=== PATIENT | female | born 1945 | race Caucasian/White ===

== ENCOUNTER 2017-04-15 16:14 | Inpatient (IN) | payer OTHER ==
--- NOTE | 2017-04-15 16:22 | PDOC ---
History of Present Illness - General History Source: Patient Exam Limitations: No Limitations - History of Present Illness Initial Comments: 04/15/17 16:26 The patient is a 71 year old female with no significant past medical history, who presents to the ED via EMS s/p fall. Patient was intoxicated getting out of the shower, when she slipt and fell. She states she hit the right side of her head but denies losing consciousness. She denies numbness/tingling. She denies nausea, vomiting. She was unable to get up by herself, she needed assistance from EMS workers. She drank 2 glasses of wine earlier in the day. She admits drinking alcohol every day and having withdrawal symptoms such as shaking if she does not drink. She denies back pain, neck pain. <Andry Nuñez - Last Filed: 04/15/17 18:23> - General History Source: Patient, Family, Old Records Exam Limitations: No Limitations <Vanessa Merritt - Last Filed: 04/15/17 18:24> - General Chief Complaint: Injury Stated Complaint: SLIP AND FALL AT HOME GETTING OUT OF SHOWER Time Seen by Provider: 04/15/17 16:21 Past History <Andry Nuñez - Last Filed: 04/15/17 18:23> <Vanessa Merritt - Last Filed: 04/15/17 18:24> - Past Medical History Allergies/Adverse Reactions: Allergies Allergy/AdvReac Type Severity Reaction Status Date / Time Penicillins Allergy Intermediate Verified 04/15/17 16:17 Home Medications: Ambulatory Orders Levothyroxine Sodium [Synthroid] 88 mcg PO DAILY 04/15/17 Metoprolol Succinate [Toprol Xl] 100 mg PO DAILY 04/15/17 Omeprazole Magnesium [Prilosec] 20 mg PO DAILY 04/15/17 Paroxetine HCl [Paxil] 20 mg PO DAILY 04/15/17 Ubidecarenone [Co Q-10] 10 mg PO DAILY 04/15/17 Valsartan 80 mg PO DAILY 04/15/17 Review of Systems - Review of Systems Able to Perform ROS?: Yes Comments:: 04/15/17 16:26 GENERAL/CONSTITUTIONAL: No fever or chills. No weakness. HEAD, EYES, EARS, NOSE AND THROAT: + right sided head pain. No change in vision. No ear pain or discharge. No sore throat. CARDIOVASCULAR: No chest pain or shortness of breath. RESPIRATORY: No cough, wheezing, or hemoptysis. GASTROINTESTINAL: No nausea, vomiting, diarrhea or constipation. GENITOURINARY: No dysuria, frequency, or change in urination. MUSCULOSKELETAL: No joint or muscle swelling or pain. No neck or back pain. SKIN: No rash NEUROLOGIC: No vertigo, loss of consciousness, or change in strength/sensation. ENDOCRINE: No increased thirst. No abnormal weight change. HEMATOLOGIC/LYMPHATIC: No anemia, easy bleeding, or history of blood clots. ALLERGIC/IMMUNOLOGIC: No hives or skin allergy. <Andry Nuñez - Last Filed: 04/15/17 18:23> *Physical Exam - Physical Exam Comments: 04/15/17 16:26 GENERAL: Awake, alert, and fully oriented, in no acute distress. Scoliosis HEAD: No signs of trauma. No contusions on her head appreciated. EYES: PERRLA, EOMI, sclera anicteric, conjunctiva clear ENT: Auricles normal inspection, hearing grossly normal, nares patent, oropharynx clear without exudates. Dry mucosa. NECK: Normal ROM, supple, no lymphadenopathy, JVD, or masses. No cervical spine tenderness. LUNGS: Distant breath sounds. No wheezes, and no crackles HEART: Regular rate and rhythm, normal S1 and S2, no murmurs, rubs or gallops ABDOMEN: Soft, nontender, normoactive bowel sounds. No guarding, no rebound. No masses EXTREMITIES: Normal range of motion, no edema. No clubbing or cyanosis. No cords, erythema, or tenderness. No signs of trauma. NEUROLOGICAL: Cranial nerves II through XII grossly intact. Normal speech, normal gait. GCS is 15. SKIN: Small hyperpigmented area above her right eyebrow and below the bottom lip. <Andry Nuñez - Last Filed: 04/15/17 18:23> ED Treatment Course - LABORATORY CBC & Chemistry Diagram: 04/15/17 16:50 04/15/17 17:20 <Andry Nuñez - Last Filed: 04/15/17 18:23> - LABORATORY CBC & Chemistry Diagram: 04/15/17 16:50 04/15/17 17:20 <Vanessa Merritt - Last Filed: 04/15/17 18:24> Medical Decision Making - Medical Decision Making 04/15/17 18:[address] Wesly Acosta. <Andry Nuñez - Last Filed: 04/15/17 18:23> - Medical Decision Making 04/15/17 17:59 71-year-old female with history of alcohol abuse who presents to the emergency department following a fall and struck her head; there was no LOC. The patient appears intoxicated. Differential diagnosis includes but is not limited to: Traumatic brain injury, contusion, concussion, electrolyte abnormality, dehydration, infection, toxic/metabolic derangement. Plan: 1. CT head and C-spine 2. Chest x-ray 3. EKG 4. Labs 5. Urine analysis 6. Observe and reevaluate Addendum: The labs were reviewed and are noted in the EMR. I have spoken with the patient's family extensively regarding detoxification from alcohol. As it turns out, her sodium is 118 which warrants admission. Her alcohol level is 226 but she shows no signs of alcohol withdrawal as she is normotensive, not tachycardic and has no tongue fasciculations or tremors. The plan is to admit her to a telemetry/monitored setting for monitoring of electrolytes, and alcohol withdrawal. <Vanessa Merritt - Last Filed: 04/15/17 18:24> *DC/Admit/Observation/Transfer - Attestations Scribe Attestion: 04/15/17 16:28 Documentation prepared by Andry Nuñez, acting as medical technologist microbiology for Vanessa Merritt MD, . <Andry Nuñez - Last Filed: 04/15/17 18:23> - Discharge Dispostion Admit: Yes - Attestations Physician Attestion: 04/15/17 18:02 I, Dr. Vanessa Merritt, attest that the scribes documentation that appears above has been prepared under my direction and personally reviewed by me in its entirety. I confirmed that the note above accurately reflects all work, treatment, procedures, and medical decision-making performed by me. <Vanessa Merritt - Last Filed: 04/15/17 18:24> Diagnosis at time of Disposition: Alcohol intoxication, Hyponatremia, Contusion of head, Fall - Discharge Dispostion Condition at time of disposition: Stable
[2017-04-15 16:37] VITALS: BMI 24.0
[2017-04-15 17:09] LABS: BASOPHIL 4.2 % (0-2.0); EOSINOPHIL 0.6 % (0-4.5); MCH 32.5 pg (25.7-33.7); MCHC 34.4 g/dl (32.0-36.0); MEAN CELL VOLUME 94.6 fl (80-96); MEAN PLT VOLUME 8.1 fl (7.5-11.1); NEUTROPHILS 75.9 % (42.8-82.8); PLATELET COUNT 216 K/MM3 (134-434); RDW 13.8 % (11.6-15.6)
[2017-04-15 17:46] LABS: ACTIVATED PTT 29.4 SECONDS (24.0-38.9)
[2017-04-15 17:48] LABS: CPK(DFH) 255 IU/L (26-140)
[2017-04-15 17:50] LABS: ALBUMIN 4.2 g/dl (3.5-5.0); ALK PHOS 44 U/L (32-92); ANION GAP 15 (8-16); BILIRUBIN,TOTAL 1.6 mg/dl (0.2-1.0); CO2 23 mmol/L (22-28); CREATININE 0.5 mg/dl (0.6-1.3); GLUCOSE,RANDOM 96 mg/dl (74-106); MAGNESIUM 1.6 mg/dL (1.8-2.4); PHOSPHOROUS 3.5 mg/dl (2.5-4.6); SGOT/AST 162 U/L (10-42); SGPT/ALT 98 U/L (10-40)
[2017-04-15 17:55] LABS: ALCOHOL 226.9 mg/dl (0-5)
[2017-04-15 17:56] LABS: INR 0.93 (0.82-1.09); PROTHROMBIN TIME (PATIENT) 10.4 SEC (10.2-13.0)
[2017-04-15 18:02] LABS: TROPONIN I (DFP) < 0.03 ng/ml (0.03-0.50)
[2017-04-15 18:29] LABS: CK MB 16.8 ng/ml (0.3-4.0)
[2017-04-15 19:13] LABS: URINE APPEARANCE Clear; URINE BILIRUBIN Negative (NEGATIVE); URINE BLOOD Negative (NEGATIVE); URINE GLUCOSE (UA) Negative (NEGATIVE); URINE KETONE Trace (NEGATIVE); URINE LEUK ESTERASE Trace (NEGATIVE); URINE NITRITE Negative (NEGATIVE); URINE PROTEIN Trace (NEGATIVE); URINE UROBILINOGEN 1.0 E.U/dl (0.2-1.0)
[2017-04-15 19:17] LABS: URINE COLOR YELLOW
[2017-04-15] MEDS ORDERED: FOLIC ACID INJECTION - 1 MG, THIAMINE HCL 100 MG, MULTIVIT INJECTION ADULT 10 ML in SOD... IVPB ONE (20:31)
[2017-04-15] MEDS ORDERED: chlordiazePOXIDE HCL 25 MG CAPSULE ONE (22:22)
[2017-04-15] MEDS: chlordiazePOXIDE HCL 25 MG CAPSULE PO SCH (22:23)
[2017-04-16] MEDS: chlordiazePOXIDE HCL 25 MG CAPSULE PO SCH ×5 (00:02→23:55)
[2017-04-16 08:24] LABS: BASOPHIL 0.9 % (0-2.0); EOSINOPHIL 1.7 % (0-4.5); MCH 32.6 pg (25.7-33.7); MCHC 33.8 g/dl (32.0-36.0); MEAN CELL VOLUME 96.5 fl (80-96); MEAN PLT VOLUME 7.8 fl (7.5-11.1); NEUTROPHILS 73.4 % (42.8-82.8); PLATELET COUNT 191 K/MM3 (134-434); RDW 13.5 % (11.6-15.6); WHITE BLOOD COUNT 5.8 K/mm3 (4.0-10.8)
[2017-04-16 08:33] LABS: ALBUMIN 4.2 g/dl (3.5-5.0); ALK PHOS 41 U/L (32-92); ANION GAP 11 (8-16); BILIRUBIN,TOTAL 2.2 mg/dl (0.2-1.0); CALCIUM 9.4 mg/dl (8.4-10.2); CO2 26 mmol/L (22-28); CREATININE 0.6 mg/dl (0.6-1.3); GLUCOSE,RANDOM 86 mg/dl (74-106); MAGNESIUM 1.6 mg/dL (1.8-2.4); SGOT/AST 106 U/L (10-42); SGPT/ALT 85 U/L (10-40); TOT PROT 7.2 g/dl (6.4-8.3)
--- NOTE | 2017-04-16 08:36 | HP ---
Admitting History and Physical - Primary Care Physician PCP: Wesly Acosta - Admission History of Present Illness: The patient is a 71 year old female with past medical historyas below , who presents to the ED via EMS s/p fall. Patient was intoxicated getting out of the shower, when she slipt and fell. She states she hit the right side of her head but denies losing consciousness. She denies numbness/tingling. She denies nausea , vomiting. She was unable to get up by herself, she needed assistance from EMS workers. She drank 2 glasses of wine earlier in the day. She admits drinking alcohol every day and having withdrawal symptoms such as shaking if she does not drink. She denies back pain, neck pain. pt found to have alcohol intoxication sodium low pt admitted for monitoring to tele started on alcohol protocol pt well knwn to me from office case was discussed with er physician last night . pt seen/ examined today feels weak denies cp/sob/ abd pain. denies headche/ dizziness denies u/b trouble shaking + History Source: Patient Limitations to Obtaining History: No Limitations - Past Medical History Cardiovascular: Yes: HTN Gastrointestinal: Yes: GERD Psych: Yes: Depression Endocrine: Yes: Other (pheochromocytoma- s/p surgery) - Advance Directives Advance Directives: Yes: Health Care Proxy - Smoking History Smoking history: Former smoker Have you smoked in the past 12 months: No If you are a former smoker, when did you quit?: 1995 - Alcohol/Substance Use Hx Alcohol Use: Yes - Social History Usual Living Arrangement: Yes: With Spouse, With Significant Other History of Recent Travel: No Home Medications - Allergies Allergies/Adverse Reactions: Allergies Allergy/AdvReac Type Severity Reaction Status Date / Time Penicillins Allergy Intermediate Verified 04/15/17 16:17 - Home Medications Home Medications: Ambulatory Orders Levothyroxine Sodium [Synthroid] 88 mcg PO DAILY 04/15/17 Metoprolol Succinate [Toprol Xl] 100 mg PO DAILY 04/15/17 Omeprazole Magnesium [Prilosec] 20 mg PO DAILY 04/15/17 Paroxetine HCl [Paxil] 20 mg PO DAILY 04/15/17 Ubidecarenone [Co Q-10] 10 mg PO DAILY 04/15/17 Valsartan 80 mg PO DAILY 04/15/17 Family Disease History - Family Disease History Family History: Unremarkable Review of Systems Findings/Remarks: see [place] Physical Examination Vital Signs: Vital Signs Temperature 98.6 F 04/16/17 04:00 Pulse Rate 75 04/16/17 04:00 Respiratory Rate 18 04/16/17 04:00 Blood Pressure 164/78 04/16/17 04:00 O2 Sat by Pulse Oximetry (%) 93 L 04/16/17 07:55 Constitutional: Yes: No Distress, Calm Eyes: Yes: Conjunctiva Clear Neck: Yes: Supple, Trachea Midline Cardiovascular: Yes: Regular Rate and Rhythm Respiratory: Yes: CTA Bilaterally Gastrointestinal: Yes: Normal Bowel Sounds, Soft Edema: No Neurological: Yes: Alert, Cran Nerves II-XII Intact, Tremors, Other Psychiatric: Yes: Alert Imaging - Results Chest X-ray: Report Reviewed X-ray: Report Reviewed Cat Scan: Report Reviewed EKG: Report Reviewed Problem List - Problems (1) Hyponatremia syndrome Code(s): E87.1 - HYPO-OSMOLALITY AND HYPONATREMIA (2) Alcohol intoxication Code(s): F10.929 - ALCOHOL USE, UNSPECIFIED WITH INTOXICATION, UNSPECIFIED (3) Contusion of head Code(s): S00.93XA - CONTUSION OF UNSPECIFIED PART OF HEAD, INITIAL ENCOUNTER (4) Fall Code(s): W19.XXXA - UNSPECIFIED FALL, INITIAL ENCOUNTER (5) Hyponatremia Code(s): E87.1 - HYPO-OSMOLALITY AND HYPONATREMIA (6) Hypertension Code(s): I10 - ESSENTIAL (PRIMARY) HYPERTENSION (7) Hypothyroid Code(s): E03.9 - HYPOTHYROIDISM, UNSPECIFIED (8) Mood disorder Code(s): F39 - UNSPECIFIED MOOD [AFFECTIVE] DISORDER Assessment/Plan etoh abuse Banana bag detox with librium continue other meds fall precautions alcohol counselling provided again to pt will discuss with family discussed with nursing staff time spend 40 min in examining/ documenting/ coordinating care will monitor closely
[2017-04-16] MEDS ORDERED: MAGNESIUM SULF 50% (8.12 MEQ/2 ML-1 GM VIAL) IVPB ONE (09:00)
[2017-04-16] MEDS ORDERED: FOLIC ACID INJECTION - 1 MG, THIAMINE HCL 100 MG, MULTIVIT INJECTION ADULT 10 ML in SOD... IVPB ONE (09:15)
[2017-04-16] MEDS: ENOXAPARIN NA (PORCINE) 40 MG/0.4 ML DISP.SYRIN SQ SCH (09:39)
[2017-04-16] MEDS: PANTOPRAZOLE 20 MG TABLET (FP) PO SCH (09:40)
[2017-04-16] MEDS: VALSARTAN 80 MG TABLET (UD) PO SCH (09:40)
[2017-04-16] MEDS: FOLIC ACID INJECTION - 1 MG, THIAMINE HCL 100 MG, MULTIVIT INJECTION ADULT 10 ML in SOD... IVPB SCH (09:41)
[2017-04-16] MEDS: METOPROLOL SUCCINATE 100 MG TAB.SR.24H (FP) PO SCH (09:41)
[2017-04-16] MEDS: PARoxetine HCL 20 MG TABLET (FP) PO SCH (09:41)
[2017-04-16] MEDS ORDERED: LEVOTHYROXINE NA 88 MCG TABLET (FP) PO SCH (10:00)
[2017-04-16] MEDS ORDERED: chlordiazePOXIDE HCL 25 MG CAPSULE PO PRN (14:45)
--- NOTE | 2017-04-16 17:09 | EKG ---
Test Reason : Blood Pressure : / mmHG Vent. Rate : 063 BPM Atrial Rate : 063 BPM P-R Int : 184 ms QRS Dur : 082 ms QT Int : 416 ms P-R-T Axes : 076 006 061 degrees QTc Int : 425 ms NORMAL SINUS RHYTHM NORMAL ECG WHEN COMPARED WITH ECG OF 29-MAR-2005 14:05, CRITERIA FOR ANTERIOR INFARCT ARE NO LONGER PRESENT CRITERIA FOR INFERIOR INFARCT ARE NO LONGER PRESENT ST NO LONGER ELEVATED IN ANTEROLATERAL LEADS CORELATE CLINICALLY Confirmed by LEAH SILVA MD ([id number]) on 04/16/2017 5:09:31 PM Referred By: PATRICIA Confirmed By:LEAH SILVA MD
[2017-04-17] MEDS: chlordiazePOXIDE HCL 25 MG CAPSULE PO SCH ×4 (05:51→23:24)
[2017-04-17 09:08] LABS: ALBUMIN 3.4 g/dl (3.5-5.0); ALK PHOS 33 U/L (32-92); ANION GAP 6 (8-16); BILIRUBIN,TOTAL 1.3 mg/dl (0.2-1.0); CALCIUM 8.6 mg/dl (8.4-10.2); CO2 25 mmol/L (22-28); CREATININE 0.5 mg/dl (0.6-1.3); GLUCOSE,RANDOM 88 mg/dl (74-106); SGOT/AST 49 U/L (10-42); SGPT/ALT 53 U/L (10-40); TOT PROT 5.9 g/dl (6.4-8.3)
--- NOTE | 2017-04-17 09:14 | PN ---
Progress Note (short form) - Note Progress Note: patient seen and examined today Feels better Decreased shaking Eating better Still feels weak though. Vital Signs Temp 98.3 F 04/17/17 06:28 Pulse 73 04/17/17 06:28 Resp 17 04/17/17 06:28 BP 135/87 04/17/17 06:28 Pulse Ox 96 04/17/17 08:32 Intake & Output 04/16/17 04/16/17 04/17/17 11:59 23:59 11:59 Intake Total 1570 1000 999 Balance 1570 1000 999 Intake: IV 1000 504 IVF 1000 504 Oral 570 1000 495 Other: Voiding Method Toilet Toilet Toilet # Unmeasured Voids Void 2 1 Bowel Movement Yes # Bowel Movements 2 Active Medications Chlordiazepoxide HCl (Librium -) 25 mg PO Q6H PRN Last Admin: 04/16/17 15:00 Dose: 25 mg Chlordiazepoxide HCl (Librium -) 25 mg PO Q6H [facility] Stop: 04/18/17 00:01 Chlordiazepoxide HCl (Librium -) 10 mg PO Q6H [facility] Stop: 04/19/17 00:01 Chlordiazepoxide HCl (Librium -) 10 mg PO BID@0600,1800 [facility] Stop: 04/19/17 18:01 Enoxaparin Sodium (Lovenox -) 40 mg SQ DAILY [facility] Last Admin: 04/16/17 09:39 Dose: 40 mg Folic Acid 1 mg/ Thiamine HCl 100 mg/ Multivitamins/Minerals 10 ml/ Sodium Chloride 1,000 mls @ 41.667 mls/hr IVPB DAILY [facility] Stop: 04/19/17 09:59 Last Admin: 04/16/17 09:41 Dose: 41.667 mls/hr Levothyroxine Sodium (Synthroid -) 88 mcg PO DAILY [facility] Last Admin: 04/16/17 09:41 Dose: 88 mcg Metoprolol Succinate (Toprol Xl -) 100 mg PO DAILY [facility] Last Admin: 04/16/17 09:41 Dose: 100 mg Pantoprazole Sodium (Protonix -) 20 mg PO DAILY [facility] Last Admin: 04/16/17 09:40 Dose: 20 mg Paroxetine HCl (Paxil -) 20 mg PO DAILY [facility] Last Admin: 04/16/17 09:41 Dose: 20 mg Valsartan (Diovan -) 80 mg PO DAILY [facility] Last Admin: 04/16/17 09:40 Dose: 80 mg CBC,CMP WBC 5.8 K/mm3 (4.0-10.8) 04/16/17 07:23 RBC 4.53 M/mm3 (3.60-5.2) 04/16/17 07:23 Hgb 14.8 GM/dl (10.7-15.3) 04/16/17 07:23 Hct 43.8 % (32.4-45.2) 04/16/17 07:23 MCV 96.5 fl (80-96) H 04/16/17 07:23 MCH 32.6 pg (25.7-33.7) 04/16/17 07:23 MCHC 33.8 g/dl (32.0-36.0) 04/16/17 07:23 RDW 13.5 % (11.6-15.6) 04/16/17 07:23 Plt Count 191 K/MM3 (134-434) 04/16/17 07:23 MPV 7.8 fl (7.5-11.1) 04/16/17 07:23 Neutrophils % 73.4 % (42.8-82.8) 04/16/17 07:23 Lymphocytes % 14.4 % (8-40) D 04/16/17 07:23 Monocytes % 9.6 % (3.8-10.2) 04/16/17 07:23 Eosinophils % 1.7 % (0-4.5) D 04/16/17 07:23 Basophils % 0.9 % (0-2.0) 04/16/17 07:23 Sodium 125 mmol/L (136-145) L 04/16/17 07:23 Potassium 4.2 mmol/L (3.5-5.1) 04/16/17 07:23 Chloride 88 mmol/L (98-107) L 04/16/17 07:23 Carbon Dioxide 26 mmol/L (22-28) 04/16/17 07:23 Anion Gap 11 (8-16) 04/16/17 07:23 BUN 7 mg/dl (7-18) 04/16/17 07:23 Creatinine 0.6 mg/dl (0.6-1.3) 04/16/17 07:23 Creat Clearance w eGFR > 60 (>60) 04/16/17 07:23 Random Glucose 86 mg/dl (74-106) 04/16/17 07:23 Calcium 9.4 mg/dl (8.4-10.2) 04/16/17 07:23 Phosphorus 3.5 mg/dl (2.5-4.6) 04/15/17 17:20 Magnesium 1.6 mg/dL (1.8-2.4) L 04/16/17 07:23 Total Bilirubin 2.2 mg/dl (0.2-1.0) H D 04/16/17 07:23 AST 106 U/L (10-42) H D 04/16/17 07:23 ALT 85 U/L (10-40) H 04/16/17 07:23 Alkaline Phosphatase 41 U/L (32-92) 04/16/17 07:23 Creatine Kinase 255 IU/L (26-140) H 04/15/17 17:20 CK-MB (CK-2) 16.8 ng/ml (0.3-4.0) H 04/15/17 17:20 Troponin I < 0.03 ng/ml (0.03-0.50) L 04/15/17 17:20 Total Protein 7.2 g/dl (6.4-8.3) 04/16/17 07:23 Albumin 4.2 g/dl (3.5-5.0) 04/16/17 07:23 Lipase 75 U/L (22-51) H 04/15/17 17:20 today's labs --pending Physical Examination Constitutional: Yes: No Distress, Calm Eyes: Yes: Conjunctiva Clear Neck: Yes: Supple, Trachea Midline, no JVD Cardiovascular: Yes: Regular Rate and Rhythm Respiratory: Yes: CTA Bilaterally Gastrointestinal: Yes: Normal Bowel Sounds, Soft, nontender Edema: No Neurological: Yes: Alert, Cran Nerves II-XII Intact, decreased tremors Psychiatric: Yes: Alert/awake Imaging - Results Chest X-ray: Report Reviewed X-ray: Report Reviewed Cat Scan: Report Reviewed EKG: Report Reviewed Assessment/Plan etoh abuse clinically better Banana bag detox with librium--tapering doses--- order clarified and discussed with nursing staff continue other meds fall precautions alcohol counselling provided again to pt Will follow Problem List - Problems (1) Hyponatremia syndrome Code(s): E87.1 - HYPO-OSMOLALITY AND HYPONATREMIA (2) Alcohol intoxication Code(s): F10.929 - ALCOHOL USE, UNSPECIFIED WITH INTOXICATION, UNSPECIFIED (3) Contusion of head Code(s): S00.93XA - CONTUSION OF UNSPECIFIED PART OF HEAD, INITIAL ENCOUNTER (4) Fall Code(s): W19.XXXA - UNSPECIFIED FALL, INITIAL ENCOUNTER (5) Hyponatremia Code(s): E87.1 - HYPO-OSMOLALITY AND HYPONATREMIA (6) Hypertension Code(s): I10 - ESSENTIAL (PRIMARY) HYPERTENSION (7) Hypothyroid Code(s): E03.9 - HYPOTHYROIDISM, UNSPECIFIED (8) Mood disorder Code(s): F39 - UNSPECIFIED MOOD [AFFECTIVE] DISORDER
[2017-04-17 09:28] LABS: BASOPHIL 0.8 % (0-2.0); MCH 33.2 pg (25.7-33.7); MCHC 34.9 g/dl (32.0-36.0); MEAN CELL VOLUME 94.9 fl (80-96); MEAN PLT VOLUME 7.8 fl (7.5-11.1); NEUTROPHILS 61.8 % (42.8-82.8); PLATELET COUNT 132 K/MM3 (134-434); RDW 13.2 % (11.6-15.6); WHITE BLOOD COUNT 3.9 K/mm3 (4.0-10.8)
[2017-04-17] MEDS: ENOXAPARIN NA (PORCINE) 40 MG/0.4 ML DISP.SYRIN SQ SCH (09:41)
[2017-04-17] MEDS: PANTOPRAZOLE 20 MG TABLET (FP) PO SCH (09:41)
[2017-04-17] MEDS: LEVOTHYROXINE NA 88 MCG TABLET (FP) PO SCH (09:41)
[2017-04-17] MEDS: FOLIC ACID INJECTION - 1 MG, THIAMINE HCL 100 MG, MULTIVIT INJECTION ADULT 10 ML in SOD... IVPB SCH (09:41)
[2017-04-17] MEDS: PARoxetine HCL 20 MG TABLET (FP) PO SCH (09:42)
[2017-04-17] MEDS: VALSARTAN 80 MG TABLET (UD) PO SCH (09:42)
[2017-04-17] MEDS: METOPROLOL SUCCINATE 100 MG TAB.SR.24H (FP) PO SCH (09:42)
[2017-04-17] MEDS ORDERED: MAGNESIUM SULF 50% (8.12 MEQ/2 ML-1 GM VIAL) IVPB ONE (10:40)
[2017-04-17] MEDS: POTASSIUM CHLORIDE TABS 10 MEQ TABLET.ER (FP) PO SCH (11:27)
[2017-04-18] MEDS: LEVOTHYROXINE NA 88 MCG TABLET (FP) PO SCH (06:09)
[2017-04-18] MEDS: chlordiazePOXIDE 5 MG CAPSULE PO SCH ×4 (06:10→23:53)
[2017-04-18 09:38] LABS: ALBUMIN 3.9 g/dl (3.5-5.0); ALK PHOS 34 U/L (32-92); ANION GAP 6 (8-16); BILIRUBIN,TOTAL 1.4 mg/dl (0.2-1.0); CALCIUM 8.9 mg/dl (8.4-10.2); CO2 26 mmol/L (22-28); CREATININE 0.5 mg/dl (0.6-1.3); GLUCOSE,RANDOM 142 mg/dl (74-106); MAGNESIUM 1.6 mg/dL (1.8-2.4); SGOT/AST 40 U/L (10-42); SGPT/ALT 52 U/L (10-40); TOT PROT 6.7 g/dl (6.4-8.3)
[2017-04-18] MEDS: VALSARTAN 80 MG TABLET (UD) PO SCH (09:53)
[2017-04-18] MEDS: METOPROLOL SUCCINATE 100 MG TAB.SR.24H (FP) PO SCH (09:53)
[2017-04-18] MEDS: PARoxetine HCL 20 MG TABLET (FP) PO SCH (09:53)
[2017-04-18] MEDS: POTASSIUM CHLORIDE TABS 10 MEQ TABLET.ER (FP) PO SCH (09:53)
[2017-04-18] MEDS: PANTOPRAZOLE 20 MG TABLET (FP) PO SCH (09:53)
[2017-04-18] MEDS: FOLIC ACID INJECTION - 1 MG, THIAMINE HCL 100 MG, MULTIVIT INJECTION ADULT 10 ML in SOD... IVPB SCH (10:22)
[2017-04-18] MEDS: ENOXAPARIN NA (PORCINE) 40 MG/0.4 ML DISP.SYRIN SQ SCH (10:22)
[2017-04-18] MEDS: MAGNESIUM OXIDE 400 MG TABLET (FP) PO SCH ×2 (11:38→21:50)
--- NOTE | 2017-04-18 17:11 | PN ---
Progress Note (short form) - Note Progress Note: patient seen and examined today Feels better Decreased shaking Eating better but still feels weak. no distress Vital Signs Temp 98.0 F 04/18/17 14:00 Pulse 66 04/18/17 14:00 Resp 18 04/18/17 14:00 BP 125/72 04/18/17 14:00 Pulse Ox 96 04/18/17 14:33 Intake & Output 04/17/17 04/18/17 04/18/17 23:59 11:59 23:59 Intake Total 1184 Output Total 200 Balance 1184 -200 Intake: IV 504 IVF 504 Oral 680 Output: Urine 200 Void 200 Other: Voiding Method Toilet Toilet # Unmeasured Voids Void 3 Bowel Movement SM Active Medications Chlordiazepoxide HCl (Librium -) 25 mg PO Q6H PRN Last Admin: 04/16/17 15:00 Dose: 25 mg Chlordiazepoxide HCl (Librium -) 10 mg PO Q6H [facility] Stop: 04/19/17 00:01 Last Admin: 04/18/17 11:38 Dose: 10 mg Chlordiazepoxide HCl (Librium -) 10 mg PO BID@0600,1800 [facility] Stop: 04/19/17 18:01 Enoxaparin Sodium (Lovenox -) 40 mg SQ DAILY [facility] Last Admin: 04/18/17 10:22 Dose: 40 mg Folic Acid 1 mg/ Thiamine HCl 100 mg/ Multivitamins/Minerals 10 ml/ Sodium Chloride 1,000 mls @ 41.667 mls/hr IVPB DAILY [facility] Stop: 04/19/17 09:59 Last Admin: 04/18/17 10:22 Dose: 41.667 mls/hr Levothyroxine Sodium (Synthroid -) 88 mcg PO DAILY@0700 [facility] Last Admin: 04/18/17 06:09 Dose: 88 mcg Magnesium Oxide (Mag-Ox -) 400 mg PO BID [facility] Last Admin: 04/18/17 11:38 Dose: 400 mg Metoprolol Succinate (Toprol Xl -) 100 mg PO DAILY [facility] Last Admin: 04/18/17 09:53 Dose: 100 mg Pantoprazole Sodium (Protonix -) 20 mg PO DAILY [facility] Last Admin: 04/18/17 09:53 Dose: 20 mg Paroxetine HCl (Paxil -) 20 mg PO DAILY [facility] Last Admin: 04/18/17 09:53 Dose: 20 mg Potassium Chloride (K-Dur -) 20 meq PO DAILY [facility] Last Admin: 04/18/17 09:53 Dose: 20 meq Valsartan (Diovan -) 80 mg PO DAILY [facility] Last Admin: 04/18/17 09:53 Dose: 80 mg CBC,CMP WBC 3.9 K/mm3 (4.0-10.8) L D 04/17/17 07:32 RBC 3.80 M/mm3 (3.60-5.2) 04/17/17 07:32 Hgb 12.6 GM/dl (10.7-15.3) D 04/17/17 07:32 Hct 36.1 % (32.4-45.2) D 04/17/17 07:32 MCV 94.9 fl (80-96) 04/17/17 07:32 MCH 33.2 pg (25.7-33.7) 04/17/17 07:32 MCHC 34.9 g/dl (32.0-36.0) 04/17/17 07:32 RDW 13.2 % (11.6-15.6) 04/17/17 07:32 Plt Count 132 K/MM3 (134-434) L D 04/17/17 07:32 MPV 7.8 fl (7.5-11.1) 04/17/17 07:32 Neutrophils % 61.8 % (42.8-82.8) 04/17/17 07:32 Lymphocytes % 20.2 % (8-40) D 04/17/17 07:32 Monocytes % 13.2 % (3.8-10.2) H 04/17/17 07:32 Eosinophils % 4.0 % (0-4.5) D 04/17/17 07:32 Basophils % 0.8 % (0-2.0) 04/17/17 07:32 Sodium 125 mmol/L (136-145) L 04/18/17 08:28 Potassium 3.6 mmol/L (3.5-5.1) 04/18/17 08:28 Chloride 93 mmol/L (98-107) L 04/18/17 08:28 Carbon Dioxide 26 mmol/L (22-28) 04/18/17 08:28 Anion Gap 6 (8-16) L 04/18/17 08:28 BUN < 5 mg/dl (7-18) L D 04/18/17 08:28 Creatinine 0.5 mg/dl (0.6-1.3) L 04/18/17 08:28 Creat Clearance w eGFR > 60 (>60) 04/18/17 08:28 Random Glucose 142 mg/dl (74-106) H D 04/18/17 08:28 Calcium 8.9 mg/dl (8.4-10.2) 04/18/17 08:28 Phosphorus 3.5 mg/dl (2.5-4.6) 04/15/17 17:20 Magnesium 1.6 mg/dL (1.8-2.4) L 04/18/17 08:28 Total Bilirubin 1.4 mg/dl (0.2-1.0) H 04/18/17 08:28 AST 40 U/L (10-42) 04/18/17 08:28 ALT 52 U/L (10-40) H 04/18/17 08:28 Alkaline Phosphatase 34 U/L (32-92) 04/18/17 08:28 Creatine Kinase 255 IU/L (26-140) H 04/15/17 17:20 CK-MB (CK-2) 16.8 ng/ml (0.3-4.0) H 04/15/17 17:20 Troponin I < 0.03 ng/ml (0.03-0.50) L 04/15/17 17:20 Total Protein 6.7 g/dl (6.4-8.3) 04/18/17 08:28 Albumin 3.9 g/dl (3.5-5.0) 04/18/17 08:28 Lipase 75 U/L (22-51) H 04/15/17 17:20 Physical Examination Constitutional: Yes: No Distress, Calm Eyes: Yes: Conjunctiva Clear Neck: Yes: Supple, Trachea Midline, no JVD Cardiovascular: Yes: Regular Rate and Rhythm Respiratory: Yes: CTA Bilaterally Gastrointestinal: Yes: Normal Bowel Sounds, Soft, nontender Edema: No Neurological: Yes: Alert, Cran Nerves II-XII Intact, decreased tremors Psychiatric: Yes: Alert/awake Assessment/Plan etoh abuse clinically better Banana bag detox with librium--tapering doses--- continue other meds fall precautions alcohol counselling provided again to pt. pt not willing to go for inpatient rehab Will follow anticipate d/c in 1-2 days supplement magnesium Problem List - Problems (1) Hyponatremia syndrome Code(s): E87.1 - HYPO-OSMOLALITY AND HYPONATREMIA (2) Alcohol intoxication Code(s): F10.929 - ALCOHOL USE, UNSPECIFIED WITH INTOXICATION, UNSPECIFIED (3) Contusion of head Code(s): S00.93XA - CONTUSION OF UNSPECIFIED PART OF HEAD, INITIAL ENCOUNTER (4) Fall Code(s): W19.XXXA - UNSPECIFIED FALL, INITIAL ENCOUNTER (5) Hyponatremia Code(s): E87.1 - HYPO-OSMOLALITY AND HYPONATREMIA (6) Hypertension Code(s): I10 - ESSENTIAL (PRIMARY) HYPERTENSION (7) Hypothyroid Code(s): E03.9 - HYPOTHYROIDISM, UNSPECIFIED (8) Mood disorder Code(s): F39 - UNSPECIFIED MOOD [AFFECTIVE] DISORDER
[2017-04-19] MEDS: chlordiazePOXIDE 5 MG CAPSULE PO SCH ×2 (06:20→18:30)
[2017-04-19] MEDS: LEVOTHYROXINE NA 88 MCG TABLET (FP) PO SCH (06:21)
[2017-04-19] MEDS ORDERED: FOLIC ACID INJECTION - 1 MG, THIAMINE HCL 100 MG, MULTIVIT INJECTION ADULT 10 ML in SOD... IVPB SCH (10:00)
[2017-04-19 10:01] LABS: BASOPHIL 4.7 % (0-2.0); EOSINOPHIL 3.2 % (0-4.5); MCH 33.8 pg (25.7-33.7); MCHC 34.7 g/dl (32.0-36.0); MEAN CELL VOLUME 97.3 fl (80-96); MEAN PLT VOLUME 7.9 fl (7.5-11.1); NEUTROPHILS 62.1 % (42.8-82.8); PLATELET COUNT 127 K/MM3 (134-434); RDW 13.3 % (11.6-15.6); WHITE BLOOD COUNT 5.1 K/mm3 (4.0-10.8)
[2017-04-19] MEDS: PARoxetine HCL 20 MG TABLET (FP) PO SCH (10:01)
[2017-04-19] MEDS: PANTOPRAZOLE 20 MG TABLET (FP) PO SCH (10:01)
[2017-04-19] MEDS: VALSARTAN 80 MG TABLET (UD) PO SCH (10:01)
[2017-04-19] MEDS: MAGNESIUM OXIDE 400 MG TABLET (FP) PO SCH ×2 (10:01→21:50)
[2017-04-19] MEDS: POTASSIUM CHLORIDE TABS 10 MEQ TABLET.ER (FP) PO SCH (10:02)
[2017-04-19] MEDS: METOPROLOL SUCCINATE 100 MG TAB.SR.24H (FP) PO SCH (10:02)
[2017-04-19] MEDS: ENOXAPARIN NA (PORCINE) 40 MG/0.4 ML DISP.SYRIN SQ SCH (10:02)
[2017-04-19 10:03] LABS: ALBUMIN 3.4 g/dl (3.5-5.0); ALK PHOS 32 U/L (32-92); ANION GAP 5 (8-16); BILIRUBIN,TOTAL 0.5 mg/dl (0.2-1.0); CALCIUM 8.6 mg/dl (8.4-10.2); CO2 26 mmol/L (22-28); CREATININE 0.7 mg/dl (0.6-1.3); GLUCOSE,RANDOM 134 mg/dl (74-106); MAGNESIUM 1.5 mg/dL (1.8-2.4); SGOT/AST 31 U/L (10-42); SGPT/ALT 39 U/L (10-40)
[2017-04-19] MEDS: chlordiazePOXIDE HCL 25 MG CAPSULE PO PRN (10:10)
--- NOTE | 2017-04-19 10:13 | PN ---
Progress Note (short form) - Note Progress Note: patient seen and examined today Feels still weak mild shaking + eating ok denies pain. Vital Signs Temp 97.9 F 04/19/17 05:51 Pulse 64 04/19/17 05:51 Resp 19 04/19/17 05:51 BP 137/79 04/19/17 05:51 Pulse Ox 95 04/19/17 08:22 Intake & Output 04/18/17 04/18/17 04/19/17 11:59 23:59 11:59 Intake Total 500 450 Output Total 200 Balance -200 500 450 Intake: Oral 500 450 Output: Urine 200 Void 200 Other: Voiding Method Toilet Toilet Toilet # Unmeasured Voids Void 2 1 Bowel Movement SM No Active Medications Chlordiazepoxide HCl (Librium -) 25 mg PO Q6H PRN Last Admin: 04/16/17 15:00 Dose: 25 mg Chlordiazepoxide HCl (Librium -) 10 mg PO Q6H [facility] Stop: 04/19/17 00:01 Last Admin: 04/18/17 11:38 Dose: 10 mg Chlordiazepoxide HCl (Librium -) 10 mg PO BID@0600,1800 [facility] Stop: 04/19/17 18:01 Enoxaparin Sodium (Lovenox -) 40 mg SQ DAILY [facility] Last Admin: 04/18/17 10:22 Dose: 40 mg Folic Acid 1 mg/ Thiamine HCl 100 mg/ Multivitamins/Minerals 10 ml/ Sodium Chloride 1,000 mls @ 41.667 mls/hr IVPB DAILY [facility] Stop: 04/19/17 09:59 Last Admin: 04/18/17 10:22 Dose: 41.667 mls/hr Levothyroxine Sodium (Synthroid -) 88 mcg PO DAILY@0700 [facility] Last Admin: 04/18/17 06:09 Dose: 88 mcg Magnesium Oxide (Mag-Ox -) 400 mg PO BID [facility] Last Admin: 04/18/17 11:38 Dose: 400 mg Metoprolol Succinate (Toprol Xl -) 100 mg PO DAILY [facility] Last Admin: 04/18/17 09:53 Dose: 100 mg Pantoprazole Sodium (Protonix -) 20 mg PO DAILY [facility] Last Admin: 04/18/17 09:53 Dose: 20 mg Paroxetine HCl (Paxil -) 20 mg PO DAILY [facility] Last Admin: 04/18/17 09:53 Dose: 20 mg Potassium Chloride (K-Dur -) 20 meq PO DAILY [facility] Last Admin: 04/18/17 09:53 Dose: 20 meq Valsartan (Diovan -) 80 mg PO DAILY [facility] Last Admin: 04/18/17 09:53 Dose: 80 mg Todays- Labs - Pending. Physical Examination Constitutional: Yes: awake/ comfortable Eyes: Yes: Conjunctiva Clear Neck: Yes: Supple, Trachea Midline, no JVD Cardiovascular: Yes: Regular Rate and Rhythm Respiratory: Yes: CTA Bilaterally Gastrointestinal: Yes: Normal Bowel Sounds, Soft, non tender Edema: No Neurological: Yes: Alert, Psychiatric: Yes: Alert/awake Assessment/Plan etoh abuse clinically better Banana bag detox with librium--tapering doses--- continue other meds fall precautions alcohol counselling provided again to pt. pt not willing to go for inpatient rehab check labs today still weak will not discharge today Anticipate tomorrow. Discussed in detail with Pts daughter Olivia also today .Discussed with nursing staff also. will follow Problem List - Problems (1) Hyponatremia syndrome Code(s): E87.1 - HYPO-OSMOLALITY AND HYPONATREMIA (2) Alcohol intoxication Code(s): F10.929 - ALCOHOL USE, UNSPECIFIED WITH INTOXICATION, UNSPECIFIED (3) Contusion of head Code(s): S00.93XA - CONTUSION OF UNSPECIFIED PART OF HEAD, INITIAL ENCOUNTER (4) Fall Code(s): W19.XXXA - UNSPECIFIED FALL, INITIAL ENCOUNTER (5) Hyponatremia Code(s): E87.1 - HYPO-OSMOLALITY AND HYPONATREMIA (6) Hypertension Code(s): I10 - ESSENTIAL (PRIMARY) HYPERTENSION (7) Hypothyroid Code(s): E03.9 - HYPOTHYROIDISM, UNSPECIFIED (8) Mood disorder Code(s): F39 - UNSPECIFIED MOOD [AFFECTIVE] DISORDER
[2017-04-20] MEDS: chlordiazePOXIDE HCL 25 MG CAPSULE PO PRN (01:27)
[2017-04-20] MEDS: LEVOTHYROXINE NA 88 MCG TABLET (FP) PO SCH (06:57)
[2017-04-20] MEDS: VALSARTAN 80 MG TABLET (UD) PO SCH (09:58)
[2017-04-20] MEDS: PANTOPRAZOLE 20 MG TABLET (FP) PO SCH (09:58)
[2017-04-20] MEDS: POTASSIUM CHLORIDE TABS 10 MEQ TABLET.ER (FP) PO SCH (09:58)
[2017-04-20] MEDS: ENOXAPARIN NA (PORCINE) 40 MG/0.4 ML DISP.SYRIN SQ SCH (09:58)
[2017-04-20] MEDS: METOPROLOL SUCCINATE 100 MG TAB.SR.24H (FP) PO SCH (09:59)
[2017-04-20] MEDS: MAGNESIUM OXIDE 400 MG TABLET (FP) PO SCH (09:59)
[2017-04-20] MEDS: PARoxetine HCL 20 MG TABLET (FP) PO SCH (09:59)
[2017-04-20 11:10] LABS: MCH 33.1 pg (25.7-33.7); MCHC 33.8 g/dl (32.0-36.0); MEAN CELL VOLUME 97.9 fl (80-96); MEAN PLT VOLUME 7.2 fl (7.5-11.1); PLATELET COUNT 150 K/MM3 (134-434); RDW 13.7 % (11.6-15.6); WHITE BLOOD COUNT 4.8 K/mm3 (4.0-10.8)
[2017-04-20 11:30] LABS: ALBUMIN 3.3 g/dl (3.5-5.0); ALK PHOS 29 U/L (32-92); ANION GAP 5 (8-16); BILIRUBIN,TOTAL 0.5 mg/dl (0.2-1.0); CALCIUM 9.2 mg/dl (8.4-10.2); CO2 29 mmol/L (22-28); CREATININE 0.6 mg/dl (0.6-1.3); GLUCOSE,RANDOM 90 mg/dl (74-106); MAGNESIUM 1.5 mg/dL (1.8-2.4); SGOT/AST 27 U/L (10-42); SGPT/ALT 33 U/L (10-40); TOT PROT 5.9 g/dl (6.4-8.3)
[2017-04-20 14:04] VITALS: BP 112/70; PULSE 77; TEMP 98.4
--- NOTE | 2017-04-20 15:00 | DS ---
Physical Examination Vital Signs: Vital Signs Temperature 98.4 F 04/20/17 14:03 Pulse Rate 77 04/20/17 14:03 Respiratory Rate 18 04/20/17 14:03 Blood Pressure 112/70 04/20/17 14:03 O2 Sat by Pulse Oximetry (%) 98 04/20/17 14:03 Findings/Remarks: feels better no complains Constitutional: Yes: No Distress, Calm Neck: Yes: Supple Cardiovascular: Yes: Regular Rate and Rhythm Respiratory: Yes: CTA Bilaterally Gastrointestinal: Yes: Normal Bowel Sounds, Soft Edema: No Neurological: Yes: Alert Psychiatric: Yes: Alert Labs: CBC, BMP 04/20/17 11:02 04/20/17 11:02 Discharge Summary Reason For Visit: HYPONATREMIA Current Active Problems Alcohol intoxication (Acute) Contusion of head (Acute) Fall (Acute) Hypertension (Acute) Hyponatremia (Acute) Hyponatremia syndrome (Acute) Hypothyroid (Acute) Mood disorder (Acute) Hospital Course: he patient is a 71 year old female with past medical historyas below , who presents to the ED via EMS s/p fall. Patient was intoxicated getting out of the shower, when she slipt and fell. She states she hit the right side of her head but denies losing consciousness. She denies numbness/tingling. She denies nausea , vomiting. She was unable to get up by herself, she needed assistance from EMS workers. She drank 2 glasses of wine earlier in the day. She admits drinking alcohol every day and having withdrawal symptoms such as shaking if she does not drink. She denies back pain, neck pain. pt found to have alcohol intoxication sodium low pt admitted for monitoring to [facility] started on alcohol protocol Pt better/ stable for d/c pt refuses in patient rehab. Pt strongly counselled also to join aa meetings I also had discussed with pts daughter yesterday. will d/c home today meds reconcilled. Plan discussed with nursing staff also. meds prescribed as needed. Time spend in examining/ documenting and coordating care- 35 min Condition: Stable - Instructions Disposition: HOME - Home Medications Comprehensive Discharge Medication List: Ambulatory Orders Levothyroxine Sodium [Synthroid] 88 mcg PO DAILY 04/15/17 Metoprolol Succinate [Toprol Xl] 100 mg PO DAILY 04/15/17 Omeprazole Magnesium [Prilosec] 20 mg PO DAILY 04/15/17 Paroxetine HCl [Paxil] 20 mg PO DAILY 04/15/17 Ubidecarenone [Co Q-10] 10 mg PO DAILY 04/15/17 Valsartan 80 mg PO DAILY 04/15/17 Folic Acid 0.8 mg PO DAILY #30 tablet 04/20/17 Magnesium Oxide [Mag-Ox -] 400 mg PO BID #60 tablet MDD 2 04/20/17 Thiamine Mononitrate [Vitamin B-1] 100 mg PO DAILY #30 tablet 04/20/17
== END 2017-04-20 17:02 | disposition home or self-care (01) | DRG 897 ==
LOC: FER 16:14 → FM/S 18:55
PROVIDERS: ADMIT Internal Medicine; ATTEND Internal Medicine
PROC: HZ2ZZZZ Detoxification Services for Substance Abuse Treatment (ICD-10-PCS; principal; 2017-04-15)
DX: F10.229 Alcohol dependence with intoxication, unspecified (principal); E87.1 Hypo-osmolality and hyponatremia; F10.239 Alcohol dependence with withdrawal, unspecified; F39 Unspecified mood [affective] disorder; K21.9 Gastro-esophageal reflux disease without esophagitis; Z87.891 Personal history of nicotine dependence; S00.93XA Contusion of unspecified part of head, initial encounter; W19.XXXA Unspecified fall, initial encounter; Y93.9 Activity, unspecified; Y92.098 Other place in other non-institutional residence as the place of occurrence of the external cause; Y99.9 Unspecified external cause status
CPT/HCPCS: 36415; 70450-TC; 71010-TC; 72125-TC; 80053; 80307; 81003; 82550; 82553; 83690; 83735; 84100; 84484; 85025; 85027; 85610; 85730; 93005; 99284-25

== ENCOUNTER 2018-01-07 18:07 | Inpatient (IN) | payer OTHER ==
[2018-01-07 18:14] VITALS: BMI 23.6
[2018-01-07] MEDS ORDERED: SODIUM CHLORIDE 500 ML IV STA (18:17)
[2018-01-07] MEDS ORDERED: chlordiazePOXIDE HCL 25 MG CAPSULE PO ONE (18:18)
--- NOTE | 2018-01-07 18:18 | PDOC ---
History of Present Illness - History of Present Illness Initial Comments: 01/07/18 18:41 Chief complaint: Patient has no complaint herself. Family called 911 because she 's been abusing alcohol and they did not know how to care for her History of present illness: <ChrisBola Yousuf - Last Filed: 01/07/18 18:41> - General History Source: Patient, EMS, Family Exam Limitations: No Limitations - History of Present Illness Initial Comments: 01/07/18 19:05 The patient is a 72 year old female, with past medical history of HTN presents to the emergency department with acute alcohol intoxication today. The patient was brought to the ED via EMS. EMS reports that the family called 911 over complaints of patients alcohol use. The patient states that she has no current complaints. The patient denies any recent falls or trauma. The patient denies chest pain, shortness of breath, headache and dizziness. Denies fever, chills, nausea, vomit, diarrhea and constipation. Denies dysuria, frequency, urgency and hematuria. Allergies: Penicillin <Patrick Browne - Last Filed: 01/07/18 19:06> - General Chief Complaint: Alcohol intoxication Stated Complaint: ALCOHOL INTOXICATION Time Seen by Provider: 01/07/18 18:16 Past History - Past Medical History COPD: No HTN: Yes Thyroid Disease: Yes (HYPOTHYROIDISM) - Suicide/Smoking/Psychosocial Hx Smoking History: Never smoked Have you smoked in the past 12 months: No If you are a former smoker, when did you quit?: 1995 Information on smoking cessation initiated: No Hx Alcohol Use: Yes Drug/Substance Use Hx: No Substance Use Type: Alcohol <Bola Perez - Last Filed: 01/07/18 18:41> <Patrick Browne - Last Filed: 01/07/18 19:06> - Past Medical History Allergies/Adverse Reactions: Allergies Allergy/AdvReac Type Severity Reaction Status Date / Time Penicillins Allergy Intermediate Verified 01/07/18 18:08 Home Medications: Ambulatory Orders Levothyroxine Sodium [Synthroid] 88 mcg PO DAILY 04/15/17 Metoprolol Succinate [Toprol Xl] 100 mg PO DAILY 04/15/17 Omeprazole Magnesium [Prilosec] 20 mg PO DAILY 04/15/17 Paroxetine HCl [Paxil] 20 mg PO DAILY 04/15/17 Ubidecarenone [Co Q-10] 10 mg PO DAILY 04/15/17 Valsartan 80 mg PO DAILY 04/15/17 Folic Acid 0.8 mg PO DAILY #30 tablet 04/20/17 Magnesium Oxide [Mag-Ox -] 400 mg PO BID #60 tablet MDD 2 04/20/17 Thiamine Mononitrate [Vitamin B-1] 100 mg PO DAILY #30 tablet 04/20/17 Review of Systems - Review of Systems Able to Perform ROS?: Yes Comments:: 01/07/18 19:05 CONSTITUTIONAL: Absent: fever, chills, diaphoresis, generalized weakness, malaise, loss of appetite HEENT: Absent: rhinorrhea, nasal congestion, throat pain, throat swelling, difficulty swallowing, mouth swelling, ear pain, eye pain, visual Changes CARDIOVASCULAR: Absent: chest pain, syncope, palpitations, irregular heart rate, lightheadedness , peripheral edema RESPIRATORY: Absent: cough, shortness of breath, dyspnea with exertion, orthopnea, wheezing, stridor, hemoptysis GASTROINTESTINAL: Absent: abdominal pain, abdominal distension, nausea, vomiting, diarrhea, constipation, melena, hematochezia GENITOURINARY: Absent: dysuria, frequency, urgency, hesitancy, hematuria, flank pain, genital pain MUSCULOSKELETAL: Absent: myalgia, arthralgia, joint swelling SKIN: Absent: rash, itching, pallor HEMATOLOGIC/IMMUNOLOGIC: Absent: easy bleeding, easy bruising, lymphadenopathy, frequent infections ENDOCRINE: Absent: unexplained weight gain, unexplained weight loss, heat intolerance, cold intolerance NEUROLOGIC: Absent: headache, focal weakness or paresthesias, dizziness, unsteady gait, seizure, mental status changes, bladder or bowel incontinence PSYCHIATRIC: Absent: anxiety, depression, suicidal or homicidal ideation, hallucinations. <Patrick Browne - Last Filed: 01/07/18 19:06> *Physical Exam - Vital Signs Last Vital Signs Temp Pulse Resp BP Pulse Ox 97.4 F L 73 18 112/77 96 01/07/18 18:10 01/07/18 18:10 01/07/18 18:10 01/07/18 18:10 01/07/18 18:10 <Bola Perez - Last Filed: 01/07/18 18:41> - Vital Signs Last Vital Signs Temp Pulse Resp BP Pulse Ox 97.4 F L 73 18 112/77 96 01/07/18 18:10 01/07/18 18:10 01/07/18 18:10 01/07/18 18:10 01/07/18 18:10 <Patrick Browne - Last Filed: 01/07/18 19:06> ED Treatment Course - LABORATORY CBC & Chemistry Diagram: 01/07/18 18:32 01/07/18 18:32 <Patrick Browne - Last Filed: 01/07/18 19:06> *DC/Admit/Observation/Transfer <Bola Perez - Last Filed: 01/07/18 18:41> - Attestations Scribe Attestion: 01/07/18 19:06 Documentation prepared by Patrick Browne, acting as medical management trainer for Bola De La Cruz MD. <Patrick Browne - Last Filed: 01/07/18 19:06> - Discharge Dispostion Condition at time of disposition: Stable
[2018-01-07 19:16] LABS: BASO % 0.4 % (0-2.0); EOS % 0.7 % (0-4.5); HEMOGLOBIN 14.7 GM/dl (10.7-15.3); LYMPH % 13.7 % (8-40); MCH 31.8 pg (25.7-33.7); MCHC 34.3 g/dl (32.0-36.0); MEAN CELL VOLUME 92.8 fl (80-96); MEAN PLT VOLUME 7.1 fl (7.5-11.1); MONO % 6.7 % (3.8-10.2); NEUT % 78.5 % (42.8-82.8); PLATELET COUNT 200 K/MM3 (134-434); RBC 4.64 M/mm3 (3.60-5.2); RDW 13.4 % (11.6-15.6); WHITE BLOOD COUNT 6.1 K/mm3 (4.0-10.8)
[2018-01-07 19:19] LABS: INR 1.08 (0.82-1.09); PROTHROMBIN TIME (PATIENT) 12.1 SEC (10.2-13.0)
[2018-01-07] MEDS ORDERED: chlordiazePOXIDE HCL 25 MG CAPSULE ONE (19:20)
[2018-01-07 19:21] LABS: ALBUMIN 3.7 g/dl (3.5-5.0); ALK PHOS 45 U/L (32-92); ANION GAP 9 (8-16); BILIRUBIN,TOTAL 1.2 mg/dl (0.2-1.0); BLOOD UREA NITROGEN 9 mg/dl (7-18); CALCIUM 8.6 mg/dl (8.4-10.2); CHLORIDE 86 mmol/L (98-107); CO2 26 mmol/L (22-28); GLUCOSE,RANDOM 117 mg/dl (74-106); POTASSIUM 3.5 mmol/L (3.5-5.1); SGOT/AST 38 U/L (10-42); SGPT/ALT 21 U/L (10-40)
[2018-01-07 19:28] LABS: SODIUM 121 mmol/L (136-145)
[2018-01-07 19:34] LABS: CREATININE < 0.8 mg/dl (0.6-1.3)
--- NOTE | 2018-01-07 19:42 | PDOC ---
*Physical Exam - Vital Signs Last Vital Signs Temp Pulse Resp BP Pulse Ox 97.4 F L 73 18 112/77 96 01/07/18 18:10 01/07/18 18:10 01/07/18 18:10 01/07/18 18:10 01/07/18 18:10 ED Treatment Course - LABORATORY CBC & Chemistry Diagram: 01/07/18 18:32 01/07/18 18:32 - ADDITIONAL ORDERS Additional order review: Laboratory Results 01/07/18 01/07/18 01/07/18 18:32 18:32 18:32 PT with INR INR Sodium 121 L* Potassium 3.5 Chloride 86 L D Carbon Dioxide 26 Anion Gap 9 BUN 9 D Creatinine < 0.8 D Creat Clearance w eGFR > 60 Random Glucose 117 H D Calcium 8.6 Total Bilirubin 1.2 H D AST 38 D ALT 21 D Alkaline Phosphatase 45 D Creatine Kinase 254 H Troponin I < 0.03 Total Protein 7.0 Albumin 3.7 Alcohol, Quantitative 292.3 H* 01/07/18 18:32 PT with INR 12.1 INR 1.08 Sodium Potassium Chloride Carbon Dioxide Anion Gap BUN Creatinine Creat Clearance w eGFR Random Glucose Calcium Total Bilirubin AST ALT Alkaline Phosphatase Creatine Kinase Troponin I Total Protein Albumin Alcohol, Quantitative 01/07/18 18:32 RBC 4.64 D MCV 92.8 MCHC 34.3 RDW 13.4 MPV 7.1 L Neutrophils % 78.5 Lymphocytes % 13.7 Monocytes % 6.7 Eosinophils % 0.7 Basophils % 0.4 - Medications Given in the ED: ED Medications Discontinued Medications Generic Name Dose Route Start Last Admin Trade Name Freq PRN Reason Stop Dose Admin Sodium Chloride 500 mls @ 500 mls/hr 01/07/18 18:17 01/07/18 19:00 Normal Saline - IV 01/07/18 19:16 500 mls/hr ASDIR STA Administration Medical Decision Making - Medical Decision Making 01/07/18 19:40 Pt received on signout pending labs and disposition for this elderly woman who has been abusing etoh and not eating for several days. Na 121, will admit for hyponatremia. Would likely benefit from detox admission after medical admission. 01/07/18 20:22 Spoke to NICK Ferreira regarding pt - to be admitted to [facility], Telemetry under Dr. Johnson. *DC/Admit/Observation/Transfer Diagnosis at time of Disposition: Hyponatremia, Alcohol intoxication - Discharge Dispostion Condition at time of disposition: Stable Admit: Yes - Referrals - Patient Instructions - Post Discharge Activity
[2018-01-07 21:23] LABS: LIPASE 540 U/L (73-393)
--- NOTE | 2018-01-07 22:00 | HP ---
CHIEF COMPLAINT: Alcohol Withdrawal PCP: HISTORY OF PRESENT ILLNESS: This is a 72 y/o woman with a PMH of Alcohol Abuse, HTN, HLD, Hypothyroid. Who presents to the ED with tremors, nausea. Patient reports drinking alcohol daily 4 glasses of wine and bottles of radha. She reports trying to Detox herself on Saturday, but today the tremors became so bad, that her gave her a glass of Radha to stop the tremors. Patient expresses that she wants to stop drinking , but does not want to do a 30 day inpatient program. She is agreeable to do an outpatient treatment center. Patient denies fever, cough, SOB, CP, palpitations, V/D, constipation, dysuria ER course was notable for: (1) Alcohol 292 (2) Na 121 (3) Lipase 540 Recent Travel: None PAST MEDICAL HISTORY: See HPI PAST SURGICAL HISTORY: Social History: Smoking: Never Alcohol: Daily- 4 glasses wine, bottles of Radha Drugs: Denies Lives with spouse Family History: Allergies Penicillins Allergy (Intermediate, Verified 01/07/18 18:08) HOME MEDICATIONS: Home Medications Medication Instructions Recorded Levothyroxine Sodium [Synthroid] 88 mcg PO DAILY 04/15/17 Metoprolol Succinate [Toprol Xl] 50 mg PO DAILY 04/15/17 Omeprazole Magnesium [Prilosec] 20 mg PO DAILY 04/15/17 Paroxetine HCl [Paxil] 20 mg PO DAILY 04/15/17 Valsartan 80 mg PO DAILY 04/15/17 REVIEW OF SYSTEMS CONSTITUTIONAL: diaphoresis Absent: fever, chills, generalized weakness, malaise, loss of appetite, weight change HEENT: Absent: rhinorrhea, nasal congestion, throat pain, throat swelling, difficulty swallowing, mouth swelling, ear pain, eye pain, visual changes CARDIOVASCULAR: Absent: chest pain, syncope, palpitations, irregular heart rate, lightheadedness , peripheral edema RESPIRATORY: Absent: cough, shortness of breath, dyspnea with exertion, orthopnea, wheezing, stridor, hemoptysis GASTROINTESTINAL: nausea Absent: abdominal pain, abdominal distension, vomiting, diarrhea, constipation, melena, hematochezia GENITOURINARY: Absent: dysuria, frequency, urgency, hesitancy, hematuria, flank pain, genital pain MUSCULOSKELETAL: Absent: myalgia, arthralgia, joint swelling, back pain, neck pain SKIN: Absent: rash, itching, pallor HEMATOLOGIC/IMMUNOLOGIC: Absent: easy bleeding, easy bruising, lymphadenopathy, frequent infections ENDOCRINE: Absent: unexplained weight gain, unexplained weight loss, heat intolerance, cold intolerance NEUROLOGIC: tremors Absent: headache, focal weakness or paresthesias, dizziness, unsteady gait, seizure, mental status changes, bladder or bowel incontinence PSYCHIATRIC: Absent: anxiety, depression, suicidal or homicidal ideation, hallucinations. PHYSICAL EXAMINATION Vital Signs - 24 hr 01/07/18 01/07/18 18:10 21:28 Temperature 97.4 F L 98.1 F Pulse Rate 73 Pulse Rate [ 81 Left Apical] Respiratory 18 16 Rate Blood Pressure 112/77 Blood Pressure 122/75 [Right Arm] O2 Sat by Pulse 96 95 Oximetry (%) GENERAL: Awake, alert, and fully oriented, in no acute distress. HEAD: Normal with no signs of trauma. EYES: Pupils equal, round and reactive to light, extraocular movements intact, sclera anicteric, conjunctiva clear. No lid lag. EARS, NOSE, THROAT: Dry mucous membranes. Ears normal, nares patent, oropharynx clear without exudates. NECK: Normal range of motion, supple without lymphadenopathy, JVD, or masses. LUNGS: Breath sounds equal, clear to auscultation bilaterally. No wheezes, and no crackles. No accessory muscle use. HEART: Regular rate and rhythm, normal S1 and S2 without murmur, rub or gallop. ABDOMEN: Soft, nontender, not distended, normoactive bowel sounds, no guarding, no rebound, no masses. No hepatomegaly or splenomegaly. MUSCULOSKELETAL: Normal range of motion at all joints. No bony deformities or tenderness. No CVA tenderness. UPPER EXTREMITIES: 2+ pulses, warm, well-perfused. No cyanosis. No clubbing. No peripheral edema. LOWER EXTREMITIES: 2+ pulses, warm, well-perfused. No calf tenderness. No peripheral edema. NEUROLOGICAL: Slurred speech, Upper extremity Tremors. Cranial nerves II-XII intact. Gait not observed. PSYCHIATRIC: Cooperative. Good eye contact. Appropriate mood and affect. SKIN: Warm, dry, normal turgor, no rashes or lesions noted, normal capillary refill. Laboratory Results - last 24 hr 01/07/18 01/07/18 01/07/18 18:32 18:32 18:32 WBC 6.1 RBC 4.64 D Hgb 14.7 D Hct 43.0 D MCV 92.8 MCH 31.8 MCHC 34.3 RDW 13.4 Plt Count 200 MPV 7.1 L Neutrophils % 78.5 Lymphocytes % 13.7 Monocytes % 6.7 Eosinophils % 0.7 Basophils % 0.4 PT with INR 12.1 INR 1.08 Sodium 121 L* Potassium 3.5 Chloride 86 L D Carbon Dioxide 26 Anion Gap 9 BUN 9 D Creatinine < 0.8 D Creat Clearance w eGFR > 60 Random Glucose 117 H D Calcium 8.6 Total Bilirubin 1.2 H D AST 38 D ALT 21 D Alkaline Phosphatase 45 D Creatine Kinase 254 H Creatine Kinase Index 4.5 CK-MB (CK-2) 11.6 H Troponin I Total Protein 7.0 Albumin 3.7 Lipase 540 H Alcohol, Quantitative 01/07/18 01/07/18 18:32 18:32 WBC RBC Hgb Hct MCV MCH MCHC RDW Plt Count MPV Neutrophils % Lymphocytes % Monocytes % Eosinophils % Basophils % PT with INR INR Sodium Potassium Chloride Carbon Dioxide Anion Gap BUN Creatinine Creat Clearance w eGFR Random Glucose Calcium Total Bilirubin AST ALT Alkaline Phosphatase Creatine Kinase Creatine Kinase Index CK-MB (CK-2) Troponin I < 0.03 Total Protein Albumin Lipase Alcohol, Quantitative 292.3 H* ASSESSMENT/PLAN: This is a 72 y/o woman with a PMH of Alcohol Abuse, HTN, HLD, Hypothyroid. Admitted to Telemetry Alcohol Intoxication, Acute Hyponatremia. 1. Alcohol Intoxication - Admit to Telemetry - ETOH 292 - CIWA- Ar 9 - Will start Librium taper - NS 500ml bolus given in ED - Banana Bag started monitor closely 2/2 Hyponatremia - Will start on Thiamine, Folic Acid daily - Appreciate Detox consult - Alcohol Cessation was discussed with patient - Seizure precautions - Fall precautions - Zofran prn - Social work consult - Repeat ETOH in am 2. Acute Hyponatremia - Likely secondary to Dehydration vs Alcohol Abuse - Continue telemetry - Na 121 - Na Deficit 598.5 - Serial BMPs - Goal Na correction of 6-8meq/24 hrs - Continue IVF - Seizure precautions - Fall precautions 3. Hypertension - Monitor BP - Continue Metoprolol, Valsartan - Monitor renal function 4. Hypothyroid - TSH in am - Continue Synthroid 5. HLD - No home med 6. Depression - Continue Paxil 7. GERD - Continue Omeprazole 8. FEN - Banana Bag@100ml/hr x24 - Repleted K - Low Na Diet 9. DVT ppx - SCDs - Heparin SQ Code Status: Full Code Dispo: Requires Inpatient Care Problem List - Problem (1) Alcohol intoxication Code(s): F10.929 - ALCOHOL USE, UNSPECIFIED WITH INTOXICATION, UNSPECIFIED (2) Hyponatremia Code(s): E87.1 - HYPO-OSMOLALITY AND HYPONATREMIA (3) Hypertension Code(s): I10 - ESSENTIAL (PRIMARY) HYPERTENSION (4) Hypothyroid Code(s): E03.9 - HYPOTHYROIDISM, UNSPECIFIED (5) Mood disorder Code(s): F39 - UNSPECIFIED MOOD [AFFECTIVE] DISORDER (6) DVT prophylaxis Code(s): OYR9133 - Visit type - Emergency Visit Emergency Visit: Yes ED Registration Date: 01/07/18 Care time: The patient presented to the Emergency Department on the above date and was hospitalized for further evaluation of their emergent condition. - New Patient This patient is new to me today: Yes Date on this admission: 01/07/18 - Critical Care Critical Care patient: No Hospitalist Screening - Colonoscopy Questionnaire Colonoscopy Questionnaire: Colonoscopy Questionnaire - Patient: 50 - 75 years old and never had a screening colonoscopy: No History of colon or rectal polyps, or CA: No History of IBD, Crohn's disease or UC: No History of abdominal radiation therapy as a child: No - Relative: 1 with colon or rectal CA, or polyps at age 60 or younger: No Colon or rectal CA diagnosed at age 45 or younger: No Multiple relatives with colon or rectal CA: No - Outcome: Screening Result: Negative Screen
[2018-01-07 22:07] LABS: URINE APPEARANCE Clear; URINE BILIRUBIN Negative (NEGATIVE); URINE GLUCOSE (UA) Negative (NEGATIVE); URINE KETONE Negative (NEGATIVE); URINE NITRITE Negative (NEGATIVE); URINE PROTEIN Trace (NEGATIVE); URINE UROBILINOGEN 0.2 (0.2-1.0)
[2018-01-07 22:10] LABS: URINE BLOOD Trace-lysed (NEGATIVE); URINE COLOR YELLOW; URINE LEUK ESTERASE TRACE (NEGATIVE)
[2018-01-07 22:21] LABS: EPI CELLS FEW /HPF; URINE BACTERIA FEW /hpf (NEGATIVE); URINE RBC 0-2 /hpf (0-3)
[2018-01-07] MEDS ORDERED: FOLIC ACID INJECTION - 1 MG, THIAMINE HCL 100 MG, MULTIVIT INJECTION ADULT 10 ML in SOD... IVPB ONE (23:00)
[2018-01-07 23:54] LABS: ANION GAP 9 (8-16); BLOOD UREA NITROGEN 11 mg/dl (7-18); CALCIUM 8.2 mg/dl (8.4-10.2); CHLORIDE 89 mmol/L (98-107); CO2 23 mmol/L (22-28); CREATININE 0.8 mg/dl (0.6-1.3); GLUCOSE,RANDOM 124 mg/dl (74-106); POTASSIUM 3.2 mmol/L (3.5-5.1)
[2018-01-07 23:55] LABS: SODIUM 121 mmol/L (136-145)
[2018-01-08] MEDS: chlordiazePOXIDE HCL 25 MG CAPSULE PO SCH ×5 (00:05→22:44)
[2018-01-08 00:10] LABS: OSMOLALITY,SERUM 328 mosm/kg (278-305)
[2018-01-08 01:02] LABS: OSMOLALITY,URINE 203 mosm/kg (300-900)
[2018-01-08 01:05] LABS: COCAINE, UR NEGATIVE ng/ml (CUTOFF=300); METHADONE, UR NEGATIVE ng/ml (CUTOFF=300); OPIATES, URI NEGATIVE ng/ml (CUTOFF=300); PHENCYCLIDINE,URINE NEGATIVE ng/ml (CUTOFF=25); URINE AMPHETAMINES NEGATIVE ng/ml (CUTOFF=500); URINE BARBITURATES NEGATIVE ng/ml (CUTOFF=200); URINE BENZODIAZEPINES NEGATIVE ng/ml (CUTOFF=200)
[2018-01-08] MEDS ORDERED: ONDANSETRON 4 MG/2 ML VIAL IVPUSH PRN (02:05)
[2018-01-08] MEDS: chlordiazePOXIDE HCL 25 MG CAPSULE PO PRN ×2 (02:24→09:28)
[2018-01-08] MEDS ORDERED: FOLIC ACID INJECTION - 1 MG, THIAMINE HCL 100 MG, MULTIVIT INJECTION ADULT 10 ML in SOD... IVPB ONE (03:35)
[2018-01-08] MEDS: KCL 10 MEQ IVPB 10 MEQ/100 ML INFUS.BAG IVPB SCH ×2 (04:00→06:27)
[2018-01-08] MEDS: LEVOTHYROXINE NA 88 MCG TABLET (FP) PO SCH (06:27)
--- NOTE | 2018-01-08 07:45 | CONSULT ---
Consult Detox [facility] Reason for Current Admission/Consult: alcohol use Referred by:: hany Ferreira NP - History History of Present Illness: 72 y/o f with h/o alcohol use disorder, was in treatment 2 years ago but relpased, h/o chronic anxiety and pheochromocytoma, HTN, HLD, Hypothyroid. yesterday presented to the ED with tremors, nausea adn alcohol withdrawal sx after trying to self detox and was admitted for inpatient detoxification. Tolerating libirum detox as ordered Patient reports drinking alcohol daily 4 glasses of wine and bottles of radha. Patient expresses that she wants to stop drinking, but does not want to do a 30 day inpatient program. She is agreeable to do an outpatient treatment center close to home in [place]. Started drinking heavily with withdrawal after stopping working 3 years ago - History Source History Provided By: Patient, Medical Record, Caregiver Limitations to Obtaining History: No Limitations - Alcohol/Substance Use Hx Alcohol Use: Yes - Current Drug/Alcohol Use Alcohol Route: Oral Frequency: Daily Amount used: bottle radha 4 glasses wine daily Age of first use: 57 Date of Last Use: 01/07/18 - Past Medical History Cardio/Vascular: Yes: HTN Gastrointestinal: Yes: GERD Psych: Yes: Depression Endocrine: Yes: Other (pheochromocytoma- s/p surgery) - Significant Medical Findings: 72 yo f on librium detox for alcohol withdrawal sx, no complaints, fine tremor noted, a and ox3 CIWA Score - CIWA Score Nausea/Vomitin-No Nausea/No Vomiting Muscle Tremors: 2 Anxiety: 2 Agitation: 1-Slight > Activity Paroxysmal Sweats: No Perspiration Orientation: 0-Oriented Tacttile Disturbances: 0-None Auditory Disturbances: 0-None Visual Disturbances: 0-None Headache: 0-None Present CIWA-Ar Total Score: 5 Assessment Plan - Diagnosis (1) Anxiety disorder Status: Acute (2) Pheochromocytoma Status: Acute (3) Alcohol dependence with uncomplicated withdrawal Status: Acute (4) Hypertension Status: Acute (5) Hypothyroid Status: Acute (6) Mood disorder Status: Acute - Plan Plan: chart, imagin, labs reviewed. patietn examined and history taken. discussed care with medical team. Recommend: 1. cont librium detox as ordered, fluids, vitamins, keep pulse <90 and bp <140/ 90, use prn libirum if needed. 2. a gender specific, or age specific group outpatient program would benefit patient if it can be found locally, otherwise patient is open to attending [facility] as it is cl[place]est to her house. - Medication Detox Regimen/Protocol: [place]
[2018-01-08 08:23] LABS: ANION GAP 6 (8-16); BLOOD UREA NITROGEN 11 mg/dl (7-18); CALCIUM 8.8 mg/dl (8.4-10.2); CHLORIDE 92 mmol/L (98-107); CO2 28 mmol/L (22-28); CREATININE 0.8 mg/dl (0.6-1.3); GLUCOSE,RANDOM 113 mg/dl (74-106); POTASSIUM 4.1 mmol/L (3.5-5.1); SODIUM 126 mmol/L (136-145)
[2018-01-08 08:26] LABS: MAGNESIUM 1.3 mg/dL (1.8-2.4); PHOSPHOROUS 2.9 mg/dl (2.5-4.6)
[2018-01-08 08:31] LABS: BASO % 0.3 % (0-2.0); EOS % 1.5 % (0-4.5); HEMATOCRIT 40.9 % (32.4-45.2); HEMOGLOBIN 14.3 GM/dl (10.7-15.3); LYMPH % 16.7 % (8-40); MCH 32.8 pg (25.7-33.7); MEAN CELL VOLUME 93.8 fl (80-96); MEAN PLT VOLUME 7.4 fl (7.5-11.1); MONO % 7.7 % (3.8-10.2); NEUT % 73.8 % (42.8-82.8); PLATELET COUNT 164 K/MM3 (134-434); RBC 4.36 M/mm3 (3.60-5.2); RDW 13.5 % (11.6-15.6); WHITE BLOOD COUNT 7.1 K/mm3 (4.0-10.8)
[2018-01-08] MEDS ORDERED: PT OWN MED DRAWER 7, Y5N ONE (09:19)
[2018-01-08] MEDS: PANTOPRAZOLE 20 MG TABLET (FP) PO SCH (09:28)
[2018-01-08] MEDS: FOLIC ACID 1 MG TABLET (FP) PO SCH (09:28)
[2018-01-08] MEDS: PARoxetine HCL 20 MG TABLET (FP) PO SCH (09:28)
[2018-01-08] MEDS: VALSARTAN 80 MG TABLET (UD) PO SCH (09:28)
[2018-01-08] MEDS: PRENATAL VITAMINS W/ FOLIC ACID TABLET (FP) PO SCH (09:35)
[2018-01-08] MEDS ORDERED: THIAMINE HCL 100 MG TABLET (FP) PO SCH ×2 (10:00→22:00)
[2018-01-08] MEDS ORDERED: MAGNESIUM SULF 50% (8.12 MEQ/2 ML-1 GM VIAL) IVPB ONE (11:34)
[2018-01-08] MEDS ORDERED: MAGNESIUM SULFATE IN WATER 2 GM/50 ML IVPB IVPB ONE (12:00)
--- NOTE | 2018-01-08 13:05 | EKG ---
Test Reason : Blood Pressure : / mmHG Vent. Rate : 072 BPM Atrial Rate : 072 BPM P-R Int : 194 ms QRS Dur : 082 ms QT Int : 426 ms P-R-T Axes : 074 003 048 degrees QTc Int : 466 ms NORMAL SINUS RHYTHM POSSIBLE LEFT ATRIAL ENLARGEMENT BORDERLINE ECG WHEN COMPARED WITH ECG OF 15-APR-2017 17:26, NO SIGNIFICANT CHANGE WAS FOUND Confirmed by CHET HARRIS, DAVE ([id number]) on 01/08/2018 1:05:08 PM Referred By: DR LANGE Confirmed By:DAVE ROSENBERG MD
--- NOTE | 2018-01-08 17:36 | PN ---
Progress Note, Physician History of Present Illness: pt seen/ examined. chart reviewed well known to me - Current Medication List Current Medications: Active Medications Chlordiazepoxide HCl (Librium -) 25 mg PO [id number] [facility] Stop: 01/09/18 17:01 Chlordiazepoxide HCl (Librium -) 15 mg PO [id number] [facility] Stop: 01/10/18 17:01 Chlordiazepoxide HCl (Librium -) 25 mg PO Q4H PRN PRN Reason: WITHDRAWAL(CONT SUBST) Stop: 01/10/18 21:34 Last Admin: 01/08/18 09:28 Dose: 25 mg Folic Acid (Folic Acid -) 1 mg PO DAILY [facility] Last Admin: 01/08/18 09:28 Dose: 1 mg Levothyroxine Sodium (Synthroid -) 88 mcg PO DAILY@0700 [facility] Last Admin: 01/08/18 06:27 Dose: 88 mcg Metoprolol Succinate (Toprol Xl -) 50 mg PO DAILY [facility] Last Admin: 01/08/18 09:28 Dose: 50 mg Ondansetron HCl (Zofran Injection) 4 mg IVPUSH Q6H PRN PRN Reason: NAUSEA AND/OR VOMITING Last Admin: 01/08/18 02:24 Dose: 4 mg Pantoprazole Sodium (Protonix -) 20 mg PO DAILY [facility] Last Admin: 01/08/18 09:28 Dose: 20 mg Paroxetine HCl (Paxil -) 20 mg PO DAILY [facility] Last Admin: 01/08/18 09:28 Dose: 20 mg Multivit/Folic Acid/Iron ( Vitamins (Sjr) -) 1 tab PO DAILY [facility] Last Admin: 01/08/18 09:35 Dose: 1 tab Thiamine HCl (Vitamin B1 -) 100 mg PO [facility] Valsartan (Diovan -) 80 mg PO DAILY [facility] Last Admin: 01/08/18 09:28 Dose: 80 mg - Objective Vital Signs: Vital Signs Temperature 98.3 F 01/08/18 14:31 Pulse Rate 81 01/08/18 14:31 Respiratory Rate 16 01/08/18 14:31 Blood Pressure 104/67 01/08/18 14:31 O2 Sat by Pulse Oximetry (%) 96 01/08/18 07:55 Constitutional: Yes: No Distress, Calm Eyes: Yes: Conjunctiva Clear Neck: Yes: Supple Cardiovascular: Yes: Regular Rate and Rhythm Respiratory: Yes: CTA Bilaterally Gastrointestinal: Yes: Soft Edema: No Neurological: Yes: Alert, Tremors Psychiatric: Yes: Alert Labs: CBC, BMP 01/08/18 07:30 01/08/18 07:30 INR, PTT INR 1.08 (0.82-1.09) 01/07/18 18:32 Problem List - Problems (1) Alcohol intoxication Code(s): F10.929 - ALCOHOL USE, UNSPECIFIED WITH INTOXICATION, UNSPECIFIED (2) Hyponatremia Code(s): E87.1 - HYPO-OSMOLALITY AND HYPONATREMIA (3) Hypothyroid Code(s): E03.9 - HYPOTHYROIDISM, UNSPECIFIED Assessment/Plan Etoh abuse. Alcohol cessation counselling. Detox with Librium. Meds reviewed Magnesium supplement. monitor lytes will follow.
[2018-01-08] MEDS: THIAMINE HCL 100 MG TABLET (FP) PO SCH (22:43)
[2018-01-09] MEDS: chlordiazePOXIDE HCL 25 MG CAPSULE PO SCH ×3 (04:48→18:02)
[2018-01-09] MEDS: LEVOTHYROXINE NA 88 MCG TABLET (FP) PO SCH (07:17)
[2018-01-09 08:05] LABS: ALBUMIN 3.1 g/dl (3.5-5.0); ALK PHOS 36 U/L (32-92); ANION GAP 6 (8-16); BILIRUBIN,TOTAL 1.7 mg/dl (0.2-1.0); BLOOD UREA NITROGEN 13 mg/dl (7-18); CALCIUM 8.6 mg/dl (8.4-10.2); CHLORIDE 99 mmol/L (98-107); CO2 25 mmol/L (22-28); GLUCOSE,RANDOM 99 mg/dl (74-106); POTASSIUM 3.8 mmol/L (3.5-5.1); SGOT/AST 26 U/L (10-42); SGPT/ALT 18 U/L (10-40); SODIUM 130 mmol/L (136-145); TOT PROT 5.7 g/dl (6.4-8.3)
[2018-01-09 08:22] LABS: CREATININE < 0.8 mg/dl (0.6-1.3)
[2018-01-09] MEDS ORDERED: PT OWN MED DRAWER 7, Y5N ONE (09:28)
[2018-01-09] MEDS: PRENATAL VITAMINS W/ FOLIC ACID TABLET (FP) PO SCH (09:33)
[2018-01-09] MEDS: FOLIC ACID 1 MG TABLET (FP) PO SCH (09:34)
[2018-01-09] MEDS: PANTOPRAZOLE 20 MG TABLET (FP) PO SCH (09:34)
[2018-01-09] MEDS: PARoxetine HCL 20 MG TABLET (FP) PO SCH (09:34)
[2018-01-09] MEDS: VALSARTAN 80 MG TABLET (UD) PO SCH (09:34)
[2018-01-09] MEDS: chlordiazePOXIDE HCL 25 MG CAPSULE PO PRN (09:43)
--- NOTE | 2018-01-09 19:14 | PN ---
Progress Note, Physician History of Present Illness: pt seen/ examined. comfortable feels better - Current Medication List Current Medications: Active Medications Chlordiazepoxide HCl (Librium -) 15 mg PO [id number] [facility] Stop: 01/10/18 17:01 Chlordiazepoxide HCl (Librium -) 25 mg PO Q4H PRN PRN Reason: WITHDRAWAL(CONT SUBST) Stop: 01/10/18 21:34 Last Admin: 01/09/18 09:43 Dose: 25 mg Folic Acid (Folic Acid -) 1 mg PO DAILY [facility] Last Admin: 01/09/18 09:34 Dose: 1 mg Levothyroxine Sodium (Synthroid -) 88 mcg PO DAILY@0700 [facility] Last Admin: 01/09/18 07:17 Dose: 88 mcg Metoprolol Succinate (Toprol Xl -) 50 mg PO DAILY [facility] Last Admin: 01/09/18 09:34 Dose: 50 mg Ondansetron HCl (Zofran Injection) 4 mg IVPUSH Q6H PRN PRN Reason: NAUSEA AND/OR VOMITING Last Admin: 01/08/18 02:24 Dose: 4 mg Pantoprazole Sodium (Protonix -) 20 mg PO DAILY [facility] Last Admin: 01/09/18 09:34 Dose: 20 mg Paroxetine HCl (Paxil -) 20 mg PO DAILY [facility] Last Admin: 01/09/18 09:34 Dose: 20 mg Multivit/Folic Acid/Iron ( Vitamins (Sjr) -) 1 tab PO DAILY [facility] Last Admin: 01/09/18 09:33 Dose: 1 tab Thiamine HCl (Vitamin B1 -) 100 mg PO HS [facility] Last Admin: 01/08/18 22:43 Dose: 100 mg Valsartan (Diovan -) 80 mg PO DAILY [facility] Last Admin: 01/09/18 09:34 Dose: 80 mg - Objective Vital Signs: Vital Signs Temperature 98.0 F 01/09/18 14:00 Pulse Rate 57 L 01/09/18 14:00 Respiratory Rate 17 01/09/18 14:00 Blood Pressure 139/76 01/09/18 14:00 O2 Sat by Pulse Oximetry (%) 98 01/09/18 14:00 Constitutional: Yes: No Distress, Calm Eyes: Yes: Conjunctiva Clear Neck: Yes: Supple Cardiovascular: Yes: Regular Rate and Rhythm Respiratory: Yes: CTA Bilaterally Gastrointestinal: Yes: Soft Edema: No Neurological: Yes: Alert, Other (decreased tremors) Psychiatric: Yes: Alert Labs: CBC, BMP 01/08/18 07:30 01/09/18 07:25 INR, PTT INR 1.08 (0.82-1.09) 01/07/18 18:32 Problem List - Problems (1) Alcohol intoxication Code(s): F10.929 - ALCOHOL USE, UNSPECIFIED WITH INTOXICATION, UNSPECIFIED (2) Hyponatremia Code(s): E87.1 - HYPO-OSMOLALITY AND HYPONATREMIA (3) Hypothyroid Code(s): E03.9 - HYPOTHYROIDISM, UNSPECIFIED Assessment/Plan Etoh abuse. Alcohol cessation counselling. Detox with Librium. Meds reviewed sodium better oob- chair will discuss with family will follow
[2018-01-09] MEDS: chlordiazePOXIDE 5 MG CAPSULE PO SCH (22:34)
[2018-01-09] MEDS: THIAMINE HCL 100 MG TABLET (FP) PO SCH (22:35)
[2018-01-10] MEDS: chlordiazePOXIDE 5 MG CAPSULE PO SCH ×3 (04:25→17:00)
[2018-01-10] MEDS: LEVOTHYROXINE NA 88 MCG TABLET (FP) PO SCH (06:16)
--- NOTE | 2018-01-10 09:54 | PN ---
Progress Note, Physician History of Present Illness: pt seen/ examined. feels weak today no distress. - Current Medication List Current Medications: Active Medications Chlordiazepoxide HCl (Librium -) 15 mg PO [id number] [facility] Stop: 01/10/18 17:01 Last Admin: 01/10/18 04:25 Dose: 15 mg Chlordiazepoxide HCl (Librium -) 25 mg PO Q4H PRN PRN Reason: WITHDRAWAL(CONT SUBST) Stop: 01/10/18 21:34 Last Admin: 01/09/18 09:43 Dose: 25 mg Folic Acid (Folic Acid -) 1 mg PO DAILY [facility] Last Admin: 01/09/18 09:34 Dose: 1 mg Levothyroxine Sodium (Synthroid -) 88 mcg PO DAILY@0700 [facility] Last Admin: 01/10/18 06:16 Dose: 88 mcg Metoprolol Succinate (Toprol Xl -) 50 mg PO DAILY [facility] Last Admin: 01/09/18 09:34 Dose: 50 mg Ondansetron HCl (Zofran Injection) 4 mg IVPUSH Q6H PRN PRN Reason: NAUSEA AND/OR VOMITING Last Admin: 01/08/18 02:24 Dose: 4 mg Pantoprazole Sodium (Protonix -) 20 mg PO DAILY [facility] Last Admin: 01/09/18 09:34 Dose: 20 mg Paroxetine HCl (Paxil -) 20 mg PO DAILY [facility] Last Admin: 01/09/18 09:34 Dose: 20 mg Multivit/Folic Acid/Iron ( Vitamins (Sjr) -) 1 tab PO DAILY [facility] Last Admin: 01/09/18 09:33 Dose: 1 tab Thiamine HCl (Vitamin B1 -) 100 mg PO [facility] Last Admin: 01/09/18 22:35 Dose: 100 mg Valsartan (Diovan -) 80 mg PO DAILY [facility] Last Admin: 01/09/18 09:34 Dose: 80 mg - Objective Vital Signs: Vital Signs Temperature 97.9 F 01/10/18 06:00 Pulse Rate 73 01/10/18 06:00 Respiratory Rate 18 01/10/18 06:00 Blood Pressure 131/75 01/10/18 06:00 O2 Sat by Pulse Oximetry (%) 96 01/10/18 08:17 Constitutional: Yes: No Distress, Calm Eyes: Yes: Conjunctiva Clear Neck: Yes: Supple Cardiovascular: Yes: Regular Rate and Rhythm Respiratory: Yes: CTA Bilaterally Gastrointestinal: Yes: Soft Edema: No Neurological: Yes: Alert, Tremors Psychiatric: Yes: Alert Labs: CBC, BMP 01/08/18 07:30 01/09/18 07:25 INR, PTT INR 1.08 (0.82-1.09) 01/07/18 18:32 Problem List - Problems (1) Alcohol intoxication Code(s): F10.929 - ALCOHOL USE, UNSPECIFIED WITH INTOXICATION, UNSPECIFIED (2) Hyponatremia Code(s): E87.1 - HYPO-OSMOLALITY AND HYPONATREMIA (3) Hypothyroid Code(s): E03.9 - HYPOTHYROIDISM, UNSPECIFIED Assessment/Plan Etoh abuse. Alcohol cessation counselling. Detox with Librium.--tapering oob- chair ad lovenox for dvt prophylaxis anticipate d/c 1-2 days should benefit from inpatient rehab.
[2018-01-10] MEDS ORDERED: PT OWN MED DRAWER 7, Y5N ONE (10:11)
[2018-01-10] MEDS: PARoxetine HCL 20 MG TABLET (FP) PO SCH (10:35)
[2018-01-10] MEDS: VALSARTAN 80 MG TABLET (UD) PO SCH (10:35)
[2018-01-10] MEDS: PANTOPRAZOLE 20 MG TABLET (FP) PO SCH (10:36)
[2018-01-10] MEDS: PRENATAL VITAMINS W/ FOLIC ACID TABLET (FP) PO SCH (10:36)
[2018-01-10] MEDS: FOLIC ACID 1 MG TABLET (FP) PO SCH (10:36)
[2018-01-10] MEDS: ENOXAPARIN NA (PORCINE) 40 MG/0.4 ML DISP.SYRIN SQ SCH (10:41)
[2018-01-10] MEDS: chlordiazePOXIDE HCL 25 MG CAPSULE PO PRN (19:32)
[2018-01-10] MEDS: THIAMINE HCL 100 MG TABLET (FP) PO SCH (21:20)
[2018-01-11] MEDS: LEVOTHYROXINE NA 88 MCG TABLET (FP) PO SCH (06:19)
[2018-01-11 09:14] LABS: BASO % 1.8 % (0-2.0); EOS % 3.6 % (0-4.5); HEMATOCRIT 37.4 % (32.4-45.2); HEMOGLOBIN 12.6 GM/dl (10.7-15.3); LYMPH % 31.8 % (8-40); MCHC 33.6 g/dl (32.0-36.0); MEAN CELL VOLUME 95.1 fl (80-96); MEAN PLT VOLUME 6.9 fl (7.5-11.1); MONO % 10.7 % (3.8-10.2); NEUT % 52.1 % (42.8-82.8); PLATELET COUNT 188 K/MM3 (134-434); RBC 3.93 M/mm3 (3.60-5.2); RDW 13.8 % (11.6-15.6); WHITE BLOOD COUNT 4.6 K/mm3 (4.0-10.8)
[2018-01-11] MEDS: PANTOPRAZOLE 20 MG TABLET (FP) PO SCH (09:25)
[2018-01-11] MEDS: VALSARTAN 80 MG TABLET (UD) PO SCH (09:25)
[2018-01-11] MEDS: PARoxetine HCL 20 MG TABLET (FP) PO SCH (09:25)
[2018-01-11] MEDS: FOLIC ACID 1 MG TABLET (FP) PO SCH (09:25)
[2018-01-11] MEDS: ENOXAPARIN NA (PORCINE) 40 MG/0.4 ML DISP.SYRIN SQ SCH (09:25)
[2018-01-11] MEDS: PRENATAL VITAMINS W/ FOLIC ACID TABLET (FP) PO SCH (09:26)
[2018-01-11 09:59] LABS: ALBUMIN 3.2 g/dl (3.5-5.0); ALK PHOS 31 U/L (32-92); ANION GAP 6 (8-16); BILIRUBIN,TOTAL 0.8 mg/dl (0.2-1.0); BLOOD UREA NITROGEN 10 mg/dl (7-18); CHLORIDE 95 mmol/L (98-107); CO2 31 mmol/L (22-28); CREATININE 0.6 mg/dl (0.6-1.3); GLUCOSE,RANDOM 95 mg/dl (74-106); POTASSIUM 4.1 mmol/L (3.5-5.1); SGOT/AST 22 U/L (10-42); SGPT/ALT 16 U/L (10-40); SODIUM 132 mmol/L (136-145); TOT PROT 6.2 g/dl (6.4-8.3)
--- NOTE | 2018-01-11 09:59 | DS ---
Physical Examination Vital Signs: Vital Signs Temperature 97.6 F 01/11/18 03:00 Pulse Rate 66 01/11/18 03:00 Respiratory Rate 19 01/11/18 03:00 Blood Pressure 135/86 01/11/18 03:00 O2 Sat by Pulse Oximetry (%) 96 01/11/18 06:37 Labs: CBC, BMP 01/11/18 09:05 Discharge Summary Reason For Visit: HYPONATREMIA Current Active Problems Alcohol dependence with uncomplicated withdrawal (Acute) Alcohol intoxication (Acute) Anxiety disorder (Acute) DVT prophylaxis (Acute) Hyponatremia (Acute) Pheochromocytoma (Acute) Hospital Course: admitted for alcohol detox, hyponatremia Was seen by Detox physician Was on Librium Sodium better will need outpt detox stable for dc home Condition: Stable - Instructions Referrals: iMck Campos MD [Staff Physician] - Wesly Acosta MD [Staff Physician] - Disposition: HOME - Home Medications Comprehensive Discharge Medication List: Ambulatory Orders Levothyroxine Sodium [Synthroid] 88 mcg PO DAILY 04/15/17 Metoprolol Succinate [Toprol Xl] 50 mg PO DAILY 04/15/17 Omeprazole Magnesium [Prilosec] 20 mg PO DAILY 04/15/17 Paroxetine HCl [Paxil] 20 mg PO DAILY 04/15/17 Valsartan 80 mg PO DAILY 04/15/17
[2018-01-11 14:16] VITALS: BP 109/72; PULSE 70; TEMP 98.3
== END 2018-01-11 18:40 | disposition home or self-care (01) | DRG 897 ==
LOC: FER 18:07 → FM/S 21:11
PROVIDERS: ADMIT Internal Medicine; ATTEND Internal Medicine
PROC: HZ2ZZZZ Detoxification Services for Substance Abuse Treatment (ICD-10-PCS; principal; 2018-01-07)
DX: F10.230 Alcohol dependence with withdrawal, uncomplicated (principal); E87.1 Hypo-osmolality and hyponatremia; F10.220 Alcohol dependence with intoxication, uncomplicated; I10 Essential (primary) hypertension; E03.9 Hypothyroidism, unspecified; E78.5 Hyperlipidemia, unspecified; K21.9 Gastro-esophageal reflux disease without esophagitis; F41.8 Other specified anxiety disorders
CPT/HCPCS: 36415; 71045-TC-FY; 80048; 80053; 80307; 81003; 81015; 82436; 82550; 82553; 83690; 83735; 83930; 83935; 84100; 84133; 84300; 84443; 84484; 85025; 85610; 93005; 97116-GP; 97161-GP; 99284-25; J7030

== ENCOUNTER 2019-05-01 22:48 | Inpatient (IN) | payer OTHER ==
--- NOTE | 2019-05-01 23:01 | PDOC ---
History of Present Illness - General Chief Complaint: Altered Mental Status Stated Complaint: DIARRHEA/CONFUSION History Source: Patient Exam Limitations: No Limitations - History of Present Illness Initial Comments: 05/01/19 23:17 This is a 73-year-old female brought in by her family for evaluation of excessive alcohol use. As per family patient also has symptomatic hyponatremia and they've been worried about her as she is been drinking heavily. Last time she was admitted as per her family her sodium was 118. Patient otherwise is without complaints. Patient just says she does not want to go through withdrawal also was drinking heavily today. Patient said she does not want to be here however family insisted she come. Allergies: as per nursing notes Past Medical History: none Social history: Lives with family. No smoking. No alcohol. No illicit drugs. Surgical history: None General: No fevers or chills, no weakness, no weight loss HEENT: No change in vision. No sore throat,. No ear pain CardioVascular: no chest discomfort. No shortness of breath Respiratory:No cough, or wheezing. Gastrointestinal: no nausea, vomiting, diarrhea or constipation, No rectal bleeding Genitourinary: No dysuria, hematuria, or frequency Musculoskeletal: No joint or muscle pain or swelling Neurologic: No headache, vertigo, dizziness or loss of consciousness Psychiatric: nor depression Skin: No rashes or easy bruising Endocrine: no increased thirst or abnormal weight change Allergic: no skin or latex allergy All other systems reviewed and normal Exam: General: Well-nourished well-developed individual, no acute distress HEENT: Throat: Normal, tonsils normal, no erythema or exudate Neck: Supple, no meningeal signs, no lymphadenopathy Eyes::Pupils equal reactive and round, extraocular motion intact Chest: Nontender to palpation Cardiac: S1-S2 normal, regular rate and rhythm, no murmurs rubs or gallops Respiratory: Lungs clear to auscultation bilateral Abdomen: Soft, nondistended, normal bowel sounds, there is no tenderness on palpation diffusely Extremities: Warm, dry, no cyanosis, clubbing, or edema Skin: No rashes Neuro: Alert and oriented x3, CN II - XII intact, nonfocal exam with normal strength, normal sensation, normal reflexes, normal gait, Psych: Normal mood and affect Assessment and plan: Workup initiated for this patient who has history of heavy alcohol use. Alcohol level CBC, comp, EKG, chest x-ray, UA and urine culture sent. Past History - Past Medical History Allergies/Adverse Reactions: Allergies Allergy/AdvReac Type Severity Reaction Status Date / Time Penicillins Allergy Intermediate Rash Verified 04/17/18 16:45 procaine [From Novocain] AdvReac Intermediate Verified 04/17/18 16:45 Home Medications: Ambulatory Orders Levothyroxine Sodium [Synthroid] 88 mcg PO DAILY 04/15/17 Metoprolol Succinate [Toprol Xl] 50 mg PO DAILY 04/15/17 Omeprazole Magnesium [Prilosec] 20 mg PO DAILY 04/15/17 Paroxetine HCl [Paxil] 20 mg PO DAILY 04/15/17 Valsartan 80 mg PO BID 04/15/17 Ondansetron [Zofran -] 4 mg PO PRN PRN 05/01/19 Anemia: No Asthma: No Cancer: No Cardiac Disorders: Yes (heart attack) CVA: No COPD: No CHF: No Dementia: No Diabetes: No GI Disorders: No Disorders: No HTN: Yes Hypercholesterolemia: No Liver Disease: No Seizures: No Thyroid Disease: No - Surgical History Abdominal Surgery: No Appendectomy: No Cardiac Surgery: No Cholecystectomy: No Lung Surgery: No Neurologic Surgery: No Orthopedic Surgery: No - Suicide/Smoking/Psychosocial Hx Smoking History: Never smoked Have you smoked in the past 12 months: No If you are a former smoker, when did you quit?: 1995 Hx Alcohol Use: Yes (5 PLUS DRINKS PER DAY) Drug/Substance Use Hx: No Substance Use Type: Alcohol Hx Substance Use Treatment: Yes ED Treatment Course - LABORATORY CBC & Chemistry Diagram: 05/01/19 23:00 05/01/19 23:00 *DC/Admit/Observation/Transfer Diagnosis at time of Disposition: Hyponatremia - Discharge Dispostion Condition at time of disposition: Stable Decision to Admit order: Yes - Referrals Referrals: Wesly Acosta MD [Primary Care Provider] - - Patient Instructions - Post Discharge Activity
[2019-05-01 23:20] VITALS: BMI 25.3
[2019-05-01 23:21] LABS: BASO % 1.3 % (0-2.0); EOS % 3.5 % (0-4.5); HEMOGLOBIN 13.4 GM/dl (10.7-15.3); LYMPH % 29.9 % (8-40); MCH 30.4 pg (25.7-33.7); MCHC 33.5 g/dl (32.0-36.0); MEAN PLT VOLUME 7.1 fl (7.5-11.1); MONO % 8.2 % (3.8-10.2); NEUT % 57.1 % (42.8-82.8); PLATELET COUNT 304 K/MM3 (134-434); RBC 4.39 M/mm3 (3.60-5.2); RDW 15.1 % (11.6-15.6); WHITE BLOOD COUNT 6.2 K/mm3 (4.0-10.8)
[2019-05-01 23:37] LABS: ALBUMIN 3.9 g/dl (3.4-5.0); BILIRUBIN,TOTAL 0.8 mg/dl (0.2-1); CALCIUM 9.1 mg/dl (8.5-10); CREATININE 0.6 mg/dl (0.55-1.3); POTASSIUM 3.8 mmol/L (3.5-5.1); TOT PROT 7.4 g/dl (6.4-8.2)
[2019-05-02] MEDS ORDERED: LORazepam 0.5 MG TABLET ONE (06:06)
[2019-05-02] MEDS ORDERED: LORazepam 0.5 MG TABLET PO ONE (06:09)
[2019-05-02] MEDS: LEVOTHYROXINE NA 88 MCG TABLET (FP) PO SCH (06:16)
[2019-05-02] MEDS: PANTOPRAZOLE 20 MG TABLET (FP) PO SCH (06:19)
[2019-05-02 09:27] LABS: MEAN CELL VOLUME 90.9 fl (80-96)
--- NOTE | 2019-05-02 09:28 | HP ---
CHIEF COMPLAINT:altered mental status PCP:Wesly Acosta HISTORY OF PRESENT ILLNESS: This is a 73-year-old female brought in by her family for evaluation of excessive alcohol use. as per ED note: As per family patient also has symptomatic hyponatremia and they've been worried about her as she is been drinking heavily. Last time she was admitted as per her family her sodium was 118. Patient otherwise is without complaints. Patient just says she does not want to go through withdrawal also was drinking heavily today. Patient said she does not want to be here however family insisted she come. pt seen at bedside this morning, alseep, arousable, denies pain, sob, no tremors noted, pt felt she was going 'into withdrawl' recieved ativan this morning. ER course was notable for: (1)Na 125 (2) (3) Recent Travel: PAST MEDICAL HISTORY: HTN Hypothyroidism ETOH use PAST SURGICAL HISTORY: Social History: Smoking:denies Alcohol:drinks 1 bottle of white wine/day Drugs: denies Family History: Allergies Penicillins Allergy (Intermediate, Verified 04/17/18 16:45) Rash procaine [From Novocain] Adverse Reaction (Intermediate, Verified 04/17/18 16:45 ) heart palpitations HOME MEDICATIONS: Home Medications Medication Instructions Recorded Levothyroxine Sodium [Synthroid] 88 mcg PO DAILY 04/15/17 Metoprolol Succinate [Toprol Xl] 50 mg PO DAILY 04/15/17 Omeprazole Magnesium [Prilosec] 20 mg PO DAILY 04/15/17 Paroxetine HCl [Paxil] 20 mg PO DAILY 04/15/17 Valsartan 80 mg PO BID 04/15/17 Ondansetron [Zofran -] 4 mg PO PRN PRN 05/01/19 REVIEW OF SYSTEMS CONSTITUTIONAL: Absent: fever, chills, diaphoresis, generalized weakness, malaise, loss of appetite, weight change HEENT: Absent: rhinorrhea, nasal congestion, throat pain, throat swelling, difficulty swallowing, mouth swelling, ear pain, eye pain, visual changes CARDIOVASCULAR: Absent: chest pain, syncope, palpitations, irregular heart rate, lightheadedness , peripheral edema RESPIRATORY: Absent: cough, shortness of breath, dyspnea with exertion, orthopnea, wheezing, stridor, hemoptysis GASTROINTESTINAL: Absent: abdominal pain, abdominal distension, nausea, vomiting, diarrhea, constipation, melena, hematochezia GENITOURINARY: Absent: dysuria, frequency, urgency, hesitancy, hematuria, flank pain, genital pain MUSCULOSKELETAL: Absent: myalgia, arthralgia, joint swelling, back pain, neck pain SKIN: Absent: rash, itching, pallor HEMATOLOGIC/IMMUNOLOGIC: Absent: easy bleeding, easy bruising, lymphadenopathy, frequent infections ENDOCRINE: Absent: unexplained weight gain, unexplained weight loss, heat intolerance, cold intolerance NEUROLOGIC: Absent: headache, focal weakness or paresthesias, dizziness, unsteady gait, seizure, mental status changes, bladder or bowel incontinence PSYCHIATRIC: Absent: anxiety, depression, suicidal or homicidal ideation, hallucinations. PHYSICAL EXAMINATION Vital Signs - 24 hr 05/01/19 05/02/19 05/02/19 22:49 01:25 01:53 Temperature 98.6 F 97.7 F Pulse Rate 68 71 Respiratory 16 18 Rate Blood Pressure 119/78 136/84 O2 Sat by Pulse 97 95 95 Oximetry (%) 05/02/19 06:00 Temperature 98.0 F Pulse Rate 84 Respiratory 18 Rate Blood Pressure 122/73 O2 Sat by Pulse Oximetry (%) GENERAL: Awake, alert, and fully oriented, in no acute distress. HEAD: Normal with no signs of trauma. EYES: Pupils equal, round and reactive to light, extraocular movements intact, sclera anicteric, conjunctiva clear. No lid lag. EARS, NOSE, THROAT: Ears normal, nares patent, oropharynx clear without exudates. Moist mucous membranes. NECK: Normal range of motion, supple without lymphadenopathy, JVD, or masses. LUNGS: Breath sounds equal, clear to auscultation bilaterally. No wheezes, and no crackles. No accessory muscle use. HEART: Regular rate and rhythm, normal S1 and S2 without murmur, rub or gallop. ABDOMEN: Soft, nontender, not distended, normoactive bowel sounds, no guarding, no rebound, no masses. No hepatomegaly or splenomegaly. MUSCULOSKELETAL: Normal range of motion at all joints. No bony deformities or tenderness. No CVA tenderness. UPPER EXTREMITIES: 2+ pulses, warm, well-perfused. No cyanosis. No clubbing. No peripheral edema. LOWER EXTREMITIES: 2+ pulses, warm, well-perfused. No calf tenderness. No peripheral edema. NEUROLOGICAL: Cranial nerves II-XII intact. Normal speech. Normal gait. PSYCHIATRIC: Cooperative. Good eye contact. Appropriate mood and affect. SKIN: Warm, dry, normal turgor, no rashes or lesions noted, normal capillary refill. Laboratory Results - last 24 hr 05/01/19 05/01/19 05/01/19 23:00 23:00 23:00 WBC 6.2 RBC 4.39 Hgb 13.4 Hct 40.0 MCV 91.0 MCH 30.4 MCHC 33.5 RDW 15.1 D Plt Count 304 MPV 7.1 L Absolute Neuts (auto) 3.5 Neutrophils % 57.1 Lymphocytes % 29.9 Monocytes % 8.2 Eosinophils % 3.5 Basophils % 1.3 Sodium 125 L Potassium 3.8 Chloride 91 L Carbon Dioxide 23 Anion Gap 11 BUN 6.0 L Creatinine 0.6 Est GFR (CKD-EPI)AfAm 106.28 Est GFR (CKD-EPI)NonAf 91.70 Random Glucose 100 Calcium 9.1 Total Bilirubin 0.8 AST 33 ALT 21 Alkaline Phosphatase 47 Creatine Kinase 186 Creatine Kinase Index 3.1 CK-MB (CK-2) 5.8 H Troponin I < 0.03 Total Protein 7.4 Albumin 3.9 Urine Color Urine Appearance Urine pH Urine Protein Urine Glucose (UA) Urine Ketones Urine Blood Urine Nitrite Urine Bilirubin Urine Urobilinogen Ur Leukocyte Esterase Alcohol, Quantitative 05/01/19 05/02/19 23:00 08:07 WBC RBC Hgb Hct MCV MCH MCHC RDW Plt Count MPV Absolute Neuts (auto) Neutrophils % Lymphocytes % Monocytes % Eosinophils % Basophils % Sodium Potassium Chloride Carbon Dioxide Anion Gap BUN Creatinine Est GFR (CKD-EPI)AfAm Est GFR (CKD-EPI)NonAf Random Glucose Calcium Total Bilirubin AST ALT Alkaline Phosphatase Creatine Kinase Creatine Kinase Index CK-MB (CK-2) Troponin I Total Protein Albumin Urine Color Yellow Urine Appearance Clear Urine pH 6.0 Urine Protein Negative Urine Glucose (UA) Negative Urine Ketones Negative Urine Blood Negative Urine Nitrite Negative Urine Bilirubin Negative Urine Urobilinogen 0.2 Ur Leukocyte Esterase Trace H Alcohol, Quantitative 102.5 H ASSESSMENT/PLAN: Anna Chavez is a 73 yr old F, medical condition HTN, Hypothyroidism, ETOH use, depression, admitted for Admitting Diagnosis Hyponatremia Chronic Problems HTN Hypothyroidism ETOH A/P: #Hyponatremia -Na 125 on admission -repeat labs ordered for this AM -trend bmp x 6hrs today -IVF @100 cc/hr -urine lytes ordered #ETOH use -monitor for withdrawl -librium PRN based on CIWA #HTN -resume home meds #Hypothyroidism -c/w synthroid #Depression,chronic -on paxil -no SI/HI Full Code Dispo: requires inpatient treatment GI/DVT prophylaxis Visit type - Emergency Visit Emergency Visit: Yes ED Registration Date: 05/02/19 Care time: The patient presented to the Emergency Department on the above date and was hospitalized for further evaluation of their emergent condition. - New Patient This patient is new to me today: Yes Date on this admission: 05/02/19 - Critical Care Critical Care patient: No
[2019-05-02 09:31] LABS: BASO % 0.9 % (0-2.0); EOS % 3.8 % (0-4.5); HEMATOCRIT 38.1 % (32.4-45.2); HEMOGLOBIN 12.9 GM/dl (10.7-15.3); MCH 30.8 pg (25.7-33.7); MCHC 33.9 g/dl (32.0-36.0); MEAN PLT VOLUME 7.8 fl (7.5-11.1); MONO % 10.3 % (3.8-10.2); PLATELET COUNT 246 K/MM3 (134-434); RBC 4.19 M/mm3 (3.60-5.2); RDW 15.2 % (11.6-15.6); WHITE BLOOD COUNT 5.1 K/mm3 (4.0-10.8)
[2019-05-02 09:44] LABS: EPITHELIAL CELLS FEW /hpf
[2019-05-02] MEDS ORDERED: PATIENT'S OWN MEDICATION (NON-FORMULARY) (Omeprazole Magnesium [Prilosec] 20 MG) PO SCH (10:00)
[2019-05-02 10:01] LABS: ALBUMIN 3.4 g/dl (3.4-5.0); CALCIUM 8.7 mg/dl (8.5-10); CREATININE 0.6 mg/dl (0.55-1.3); POTASSIUM 3.9 mmol/L (3.5-5.1); TOT PROT 6.6 g/dl (6.4-8.2)
[2019-05-02] MEDS: PARoxetine HCL 20 MG TABLET PO SCH (10:08)
[2019-05-02] MEDS: VALSARTAN 80 MG TABLET (UD) PO SCH ×2 (10:08→21:43)
[2019-05-02] MEDS: THIAMINE HCL 100 MG TABLET (FP) PO SCH ×2 (10:08→21:43)
[2019-05-02] MEDS: FOLIC ACID 1 MG TABLET (FP) PO SCH (10:09)
[2019-05-02] MEDS: HEPARIN NA (PORCINE) 5,000 UNITS/ML 1ML VIAL SQ SCH ×2 (10:09→21:43)
[2019-05-02] MEDS: SODIUM CHLORIDE 1,000 ML IV SCH (10:10)
[2019-05-02] MEDS: chlordiazePOXIDE HCL 25 MG CAPSULE PO PRN ×2 (11:00→21:43)
[2019-05-02 12:30] LABS: CALCIUM 8.4 mg/dl (8.5-10); CREATININE 0.6 mg/dl (0.55-1.3); POTASSIUM 3.6 mmol/L (3.5-5.1)
--- NOTE | 2019-05-02 22:50 | PN ---
Progress Note, Physician History of Present Illness: This is a 73-year-old female brought in by her family for evaluation of excessive alcohol use. as per ED note: As per family patient also has symptomatic hyponatremia and they've been worried about her as she is been drinking heavily. Last time she was admitted as per her family her sodium was 118. Patient otherwise is without complaints. Patient just says she does not want to go through withdrawal also was drinking heavily today. Patient said she does not want to be here however family insisted she come. pt seen at bedside this morning, alseep, arousable, denies pain, sob, no tremors noted, pt felt she was going 'into withdrawl' recieved ativan this morning. - Current Medication List Current Medications: Active Medications Chlordiazepoxide HCl (Librium -) 25 mg PO Q6H PRN PRN Reason: WITHDRAWAL(CONT SUBST) Last Admin: 05/02/19 21:43 Dose: 25 mg Folic Acid (Folic Acid -) 1 mg PO DAILY [facility] Last Admin: 05/02/19 10:09 Dose: 1 mg Heparin Sodium (Porcine) (Heparin -) 5,000 unit SQ BID COUNT [facility]CLUD[facility] Last Admin: 05/02/19 21:43 Dose: 5,000 unit Sodium Chloride (Normal Saline -) 1,000 mls @ 100 mls/hr IV ASDIR COUNT INCLUDES [facility] Last Admin: 05/02/19 10:10 Dose: 100 mls/hr Levothyroxine Sodium (Synthroid -) 88 mcg PO AM [facility] Last Admin: 05/02/19 06:16 Dose: 88 mcg Metoprolol Succinate (Toprol Xl -) 50 mg PO DAILY [facility] Last Admin: 05/02/19 10:08 Dose: 50 mg Pantoprazole Sodium (Protonix -) 20 mg PO DAILY@0700 [facility] Last Admin: 05/02/19 06:19 Dose: 20 mg Paroxetine HCl (Paxil -) 20 mg PO DAILY [facility] Last Admin: 05/02/19 10:08 Dose: 20 mg Thiamine HCl (Vitamin B1 -) 100 mg PO BID [facility] Last Admin: 05/02/19 21:43 Dose: 100 mg Valsartan (Diovan -) 80 mg PO BID [facility] Last Admin: 05/02/19 21:43 Dose: 80 mg - Objective Vital Signs: Vital Signs Temperature 98.2 F 05/02/19 18:00 Pulse Rate 75 05/02/19 18:00 Respiratory Rate 17 05/02/19 18:00 Blood Pressure 129/85 05/02/19 18:00 O2 Sat by Pulse Oximetry (%) 93 L 05/02/19 18:00 Constitutional: Yes: No Distress Eyes: Yes: Conjunctiva Clear, EOM Intact HENT: Yes: Atraumatic, Normocephalic Neck: Yes: Supple, Trachea Midline Cardiovascular: Yes: Regular Rate and Rhythm, S1, S2 Respiratory: Yes: Regular, CTA Bilaterally Gastrointestinal: Yes: Normal Bowel Sounds, Soft ...Rectal Exam: Yes: Deferred Edema: No Labs: CBC, BMP 05/02/19 08:15 05/02/19 12:00 Problem List - Problems (1) ETOH abuse Code(s): F10.10 - ALCOHOL ABUSE, UNCOMPLICATED (2) Hyponatremia Code(s): E87.1 - HYPO-OSMOLALITY AND HYPONATREMIA (3) Hypertension Code(s): I10 - ESSENTIAL (PRIMARY) HYPERTENSION (4) Hyponatremia syndrome Code(s): E87.1 - HYPO-OSMOLALITY AND HYPONATREMIA (5) Hypothyroid Code(s): E03.9 - HYPOTHYROIDISM, UNSPECIFIED Assessment/Plan (1) ETOH abuse Code(s): F10.10 - ALCOHOL ABUSE, UNCOMPLICATED (2) Hyponatremia Code(s): E87.1 - HYPO-OSMOLALITY AND HYPONATREMIA (3) Hypertension Code(s): I10 - ESSENTIAL (PRIMARY) HYPERTENSION (4) Hyponatremia syndrome Code(s): E87.1 - HYPO-OSMOLALITY AND HYPONATREMIA (5) Hypothyroid Code(s): E03.9 - HYPOTHYROIDISM, UNSPECIFIED
[2019-05-03] MEDS: PANTOPRAZOLE 20 MG TABLET (FP) PO SCH (07:11)
[2019-05-03] MEDS: LEVOTHYROXINE NA 88 MCG TABLET (FP) PO SCH (07:11)
[2019-05-03] MEDS: chlordiazePOXIDE HCL 25 MG CAPSULE PO PRN ×2 (08:20→21:26)
[2019-05-03 09:30] LABS: BASO % 0.6 % (0-2.0); EOS % 3.6 % (0-4.5); HEMATOCRIT 37.4 % (32.4-45.2); HEMOGLOBIN 12.5 GM/dl (10.7-15.3); LYMPH % 20.3 % (8-40); MCH 30.7 pg (25.7-33.7); MCHC 33.5 g/dl (32.0-36.0); MEAN CELL VOLUME 91.7 fl (80-96); MONO % 11.4 % (3.8-10.2); NEUT % 64.1 % (42.8-82.8); PLATELET COUNT 220 K/MM3 (134-434); RBC 4.08 M/mm3 (3.60-5.2); WHITE BLOOD COUNT 4.6 K/mm3 (4.0-10.8)
[2019-05-03] MEDS: SODIUM CHLORIDE 1,000 ML IV SCH (09:30)
[2019-05-03 09:32] LABS: CALCIUM 8.9 mg/dl (8.5-10); CREATININE 0.6 mg/dl (0.55-1.3); MAGNESIUM 1.5 mg/dL (1.8-2.4); POTASSIUM 3.6 mmol/L (3.5-5.1)
[2019-05-03] MEDS: PARoxetine HCL 20 MG TABLET PO SCH (09:37)
[2019-05-03] MEDS: HEPARIN NA (PORCINE) 5,000 UNITS/ML 1ML VIAL SQ SCH ×2 (09:37→21:26)
[2019-05-03] MEDS: FOLIC ACID 1 MG TABLET (FP) PO SCH (09:37)
[2019-05-03] MEDS: THIAMINE HCL 100 MG TABLET (FP) PO SCH ×2 (09:37→21:25)
[2019-05-03] MEDS: VALSARTAN 80 MG TABLET (UD) PO SCH ×2 (09:37→21:26)
[2019-05-03] MEDS ORDERED: MAGNESIUM SULF 50% (8.12 MEQ/2 ML-1 GM VIAL) IVPB ONE (09:43)
--- NOTE | 2019-05-03 10:51 | EKG ---
Test Reason : Blood Pressure : / mmHG Vent. Rate : 068 BPM Atrial Rate : 068 BPM P-R Int : 174 ms QRS Dur : 076 ms QT Int : 414 ms P-R-T Axes : 062 -19 034 degrees QTc Int : 440 ms NORMAL SINUS RHYTHM NORMAL ECG WHEN COMPARED WITH ECG OF 16-APR-2018 17:15, NO SIGNIFICANT CHANGE WAS FOUND Confirmed by KRISTY VALLES MD ([id number]) on 05/03/2019 10:51:02 AM Referred By: MD JOINER Confirmed By:KRISTY VALLES MD
--- NOTE | 2019-05-03 10:57 | PN ---
Physical Exam: SUBJECTIVE: Patient seen and examined, urine cx strep b hemolytic 10-40,000 -pt asymptomatic, denies dysuria, urinary frequency, fever, flank pain- afebrile, no leukocytosis, will hold off on abt, repeat urine cx ordered Na improving CT head unremarkable pt feels she will go into withdrawl at home, states having symptoms after librium wears off, OBJECTIVE: Vital Signs Period Temp Pulse Resp BP Sys/Yousif Pulse Ox Last 24 Hr 97.4 F-98.7 F 71-88 17-20 110-129/71-85 92-97 GENERAL: The patient is awake, alert, and fully oriented, in no acute distress. HEAD: Normal with no signs of trauma. EYES: PERRL, extraocular movements intact, sclera anicteric, conjunctiva clear. No ptosis. ENT: Ears normal, nares patent, oropharynx clear without exudates, moist mucous membranes. NECK: Trachea midline, full range of motion, supple. LUNGS: Breath sounds equal, clear to auscultation bilaterally, no wheezes, no crackles, no accessory muscle use. HEART: Regular rate and rhythm, S1, S2 without murmur, rub or gallop. ABDOMEN: Soft, nontender, nondistended, normoactive bowel sounds, no guarding, no rebound, no hepatosplenomegaly, no masses. EXTREMITIES: 2+ pulses, warm, well-perfused, no edema. NEUROLOGICAL: Cranial nerves II through XII grossly intact. Normal speech, gait not observed. PSYCH: Normal mood, normal affect. SKIN: Warm, dry, normal turgor, no rashes or lesions noted Laboratory Results - last 24 hr 05/02/19 05/02/19 05/03/19 12:00 13:07 06:15 WBC RBC Hgb Hct MCV MCH MCHC RDW Plt Count MPV Absolute Neuts (auto) Neutrophils % Lymphocytes % Monocytes % Eosinophils % Basophils % Sodium 130 L 133 L Potassium 3.6 3.6 Chloride 99 96 L Carbon Dioxide 27 29 Anion Gap 4 L 8 BUN 7.0 6.0 L Creatinine 0.6 0.6 Est GFR (CKD-EPI)AfAm 106.28 106.28 Est GFR (CKD-EPI)NonAf 91.70 91.70 Random Glucose 106 94 Calcium 8.4 L 8.9 Magnesium 1.5 L Ur Random Sodium 103 05/03/19 06:15 WBC 4.6 RBC 4.08 Hgb 12.5 Hct 37.4 MCV 91.7 MCH 30.7 MCHC 33.5 RDW 15.0 Plt Count 220 MPV 8.0 Absolute Neuts (auto) 3.0 Neutrophils % 64.1 Lymphocytes % 20.3 Monocytes % 11.4 H Eosinophils % 3.6 Basophils % 0.6 Sodium Potassium Chloride Carbon Dioxide Anion Gap BUN Creatinine Est GFR (CKD-EPI)AfAm Est GFR (CKD-EPI)NonAf Random Glucose Calcium Magnesium Ur Random Sodium Active Medications Generic Name Dose Route Start Last Admin Trade Name Freq PRN Reason Stop Dose Admin Chlordiazepoxide HCl 25 mg 05/02/19 09:26 05/03/19 08:20 Librium - PO 25 mg Q6H PRN Administration WITHDRAWAL(CONT SUBST) Folic Acid 1 mg 05/02/19 10:00 05/03/19 09:37 Folic Acid - PO 1 mg DAILY [facility] Administration Heparin Sodium (Porcine) 5,000 unit 05/02/19 10:00 05/03/19 09:37 Heparin - SQ 5,000 unit BID [facility] Administration Sodium Chloride 1,000 mls @ 100 mls/hr 05/02/19 09:30 05/02/19 10:10 Normal Saline - IV 100 mls/hr ASDIR [facility] Administration Levothyroxine Sodium 88 mcg 05/02/19 07:00 05/03/19 07:11 Synthroid - PO 88 mcg AM [facility] Administration Metoprolol Succinate 50 mg 05/02/19 10:00 05/03/19 09:37 Toprol Xl - PO 50 mg DAILY [facility] Administration Pantoprazole Sodium 20 mg 05/02/19 07:00 05/03/19 07:11 Protonix - PO 20 mg DAILY@0700 [facility] Administration Paroxetine HCl 20 mg 05/02/19 10:00 05/03/19 09:37 Paxil - PO 20 mg DAILY [facility] Administration Thiamine HCl 100 mg 05/02/19 10:00 05/03/19 09:37 Vitamin B1 - PO 100 mg BID [facility] Administration Valsartan 80 mg 05/02/19 10:00 05/03/19 09:37 Diovan - PO 80 mg BID [facility] Administration ASSESSMENT/PLAN: Anna Chavez is a 73 yr old F, medical condition HTN, Hypothyroidism, ETOH use, depression, admitted for Admitting Diagnosis Hyponatremia Chronic Problems HTN Hypothyroidism ETOH A/P: #AMS 2/2 hyponatremia-resolved -Na improving -CT head unremarkable #Hyponatremia-improving -Na 125 on admission, today 133 -IVF @100 cc/hr -urine sodium 103 #hypomagnesia -mag 1.5 -2grm mag IV ordered #+urine cx -strep b <100,000 -pt asymptomatic, no fever, no symptoms -will hold off abt -repeat urine cx #ETOH use -monitor for withdrawl -librium PRN based on CIWA #HTN -resume home meds #Hypothyroidism -c/w synthroid #Depression,chronic -on paxil -no SI/HI Full Code Dispo: requires inpatient treatment GI/DVT prophylaxis Visit type - Emergency Visit Emergency Visit: Yes ED Registration Date: 05/02/19 Care time: The patient presented to the Emergency Department on the above date and was hospitalized for further evaluation of their emergent condition. - New Patient This patient is new to me today: No - Critical Care Critical Care patient: No
--- NOTE | 2019-05-03 15:55 | PN ---
Progress Note, Physician History of Present Illness: Pt is looking better Pt with Librium is better with DTS No Fever NO SOB No chest pain - Current Medication List Current Medications: Active Medications Chlordiazepoxide HCl (Librium -) 25 mg PO Q6H PRN PRN Reason: WITHDRAWAL(CONT SUBST) Last Admin: 05/03/19 08:20 Dose: 25 mg Folic Acid (Folic Acid -) 1 mg PO DAILY [facility] Last Admin: 05/03/19 09:37 Dose: 1 mg Heparin Sodium (Porcine) (Heparin -) 5,000 unit SQ BID [facility] Last Admin: 05/03/19 09:37 Dose: 5,000 unit Sodium Chloride (Normal Saline -) 1,000 mls @ 100 mls/hr IV ASDIR [facility] Last Admin: 05/02/19 10:10 Dose: 100 mls/hr Levothyroxine Sodium (Synthroid -) 88 mcg PO AM [facility] Last Admin: 05/03/19 07:11 Dose: 88 mcg Metoprolol Succinate (Toprol Xl -) 50 mg PO DAILY [facility] Last Admin: 05/03/19 09:37 Dose: 50 mg Pantoprazole Sodium (Protonix -) 20 mg PO DAILY@0700 [facility] Last Admin: 05/03/19 07:11 Dose: 20 mg Paroxetine HCl (Paxil -) 20 mg PO DAILY [facility] Last Admin: 05/03/19 09:37 Dose: 20 mg Thiamine HCl (Vitamin B1 -) 100 mg PO BID [facility] Last Admin: 05/03/19 09:37 Dose: 100 mg Valsartan (Diovan -) 80 mg PO BID [facility] Last Admin: 05/03/19 09:37 Dose: 80 mg - Objective Vital Signs: Vital Signs Temperature 98.4 F 05/03/19 14:00 Pulse Rate 77 05/03/19 14:00 Respiratory Rate 18 05/03/19 14:00 Blood Pressure 97/78 05/03/19 14:00 O2 Sat by Pulse Oximetry (%) 96 05/03/19 14:00 Constitutional: Yes: No Distress Eyes: Yes: Conjunctiva Clear, EOM Intact HENT: Yes: Atraumatic, Normocephalic Neck: Yes: Supple, Trachea Midline Cardiovascular: Yes: Regular Rate and Rhythm, S1, S2 Respiratory: Yes: Regular, CTA Bilaterally Gastrointestinal: Yes: Normal Bowel Sounds, Soft Edema: No Peripheral Pulses WNL: Yes Labs: CBC, BMP 05/03/19 06:15 05/03/19 06:15 Problem List - Problems (1) ETOH abuse Code(s): F10.10 - ALCOHOL ABUSE, UNCOMPLICATED (2) Hyponatremia Code(s): E87.1 - HYPO-OSMOLALITY AND HYPONATREMIA (3) Hypertension Code(s): I10 - ESSENTIAL (PRIMARY) HYPERTENSION (4) Hyponatremia syndrome Code(s): E87.1 - HYPO-OSMOLALITY AND HYPONATREMIA (5) Hypothyroid Code(s): E03.9 - HYPOTHYROIDISM, UNSPECIFIED Assessment/Plan (1) ETOH abuse Code(s): F10.10 - ALCOHOL ABUSE, UNCOMPLICATED (2) Hyponatremia Code(s): E87.1 - HYPO-OSMOLALITY AND HYPONATREMIA (3) Hypertension Code(s): I10 - ESSENTIAL (PRIMARY) HYPERTENSION (4) Hyponatremia syndrome Code(s): E87.1 - HYPO-OSMOLALITY AND HYPONATREMIA (5) Hypothyroid Code(s): E03.9 - HYPOTHYROIDISM, UNSPECIFIED Pt is much better today withdrawal is better
[2019-05-04] MEDS ORDERED: BENZOCAINE/MENTH/CETYLPYRD CL 1 EACH LOZENGE MM PRN (03:16)
[2019-05-04] MEDS: chlordiazePOXIDE HCL 25 MG CAPSULE PO PRN ×2 (07:12→16:10)
[2019-05-04] MEDS: LEVOTHYROXINE NA 88 MCG TABLET (FP) PO SCH (07:12)
[2019-05-04] MEDS: PANTOPRAZOLE 20 MG TABLET (FP) PO SCH (07:12)
[2019-05-04 08:50] LABS: ALBUMIN 3.3 g/dl (3.4-5.0); BILIRUBIN,TOTAL 0.8 mg/dl (0.2-1); CALCIUM 8.9 mg/dl (8.5-10); CREATININE 0.6 mg/dl (0.55-1.3); MAGNESIUM 1.9 mg/dL (1.8-2.4); TOT PROT 6.2 g/dl (6.4-8.2)
[2019-05-04 08:56] LABS: EOS % 3.2 % (0-4.5); HEMATOCRIT 37.6 % (32.4-45.2); HEMOGLOBIN 12.6 GM/dl (10.7-15.3); LYMPH % 28.8 % (8-40); MCH 30.8 pg (25.7-33.7); MCHC 33.4 g/dl (32.0-36.0); MEAN CELL VOLUME 92.2 fl (80-96); MONO % 12.9 % (3.8-10.2); NEUT % 54.1 % (42.8-82.8); PLATELET COUNT 231 K/MM3 (134-434); RBC 4.08 M/mm3 (3.60-5.2); RDW 15.3 % (11.6-15.6); WHITE BLOOD COUNT 4.2 K/mm3 (4.0-10.8)
[2019-05-04] MEDS: VALSARTAN 80 MG TABLET (UD) PO SCH ×2 (09:30→21:56)
[2019-05-04] MEDS: FOLIC ACID 1 MG TABLET (FP) PO SCH (09:31)
[2019-05-04] MEDS: PARoxetine HCL 20 MG TABLET PO SCH (09:31)
[2019-05-04] MEDS: SODIUM CHLORIDE 1,000 ML IV SCH (09:32)
[2019-05-04] MEDS: HEPARIN NA (PORCINE) 5,000 UNITS/ML 1ML VIAL SQ SCH ×2 (09:32→21:56)
[2019-05-04] MEDS: THIAMINE HCL 100 MG TABLET (FP) PO SCH ×2 (09:32→21:56)
--- NOTE | 2019-05-04 17:46 | PN ---
Progress Note, Physician History of Present Illness: pt seen/ examined chart reviewed well known to me comfortable remorseful - Current Medication List Current Medications: Active Medications Benzocaine/Menthol (Cepacol Lozenge -) 1 each MM PRN PRN PRN Reason: SORE THROAT Chlordiazepoxide HCl (Librium -) 10 mg PO BID [facility] Folic Acid (Folic Acid -) 1 mg PO DAILY [facility] Last Admin: 05/04/19 09:31 Dose: 1 mg Heparin Sodium (Porcine) (Heparin -) 5,000 unit SQ BID [facility] Last Admin: 05/04/19 09:32 Dose: 5,000 unit Sodium Chloride (Normal Saline -) 1,000 mls @ 100 mls/hr IV ASDIR [facility] Last Admin: 05/04/19 09:32 Dose: 100 mls/hr Levothyroxine Sodium (Synthroid -) 88 mcg PO AM [facility] Last Admin: 05/04/19 07:12 Dose: 88 mcg Metoprolol Succinate (Toprol Xl -) 50 mg PO DAILY [facility] Last Admin: 05/04/19 09:32 Dose: 50 mg Pantoprazole Sodium (Protonix -) 20 mg PO DAILY@0700 [facility] Last Admin: 05/04/19 07:12 Dose: 20 mg Paroxetine HCl (Paxil -) 20 mg PO DAILY [facility] Last Admin: 05/04/19 09:31 Dose: 20 mg Thiamine HCl (Vitamin B1 -) 100 mg PO BID [facility] Last Admin: 05/04/19 09:32 Dose: 100 mg Valsartan (Diovan -) 80 mg PO BID [facility] Last Admin: 05/04/19 09:30 Dose: 80 mg - Objective Vital Signs: Vital Signs Temperature 98.4 F 05/04/19 13:52 Pulse Rate 73 05/04/19 13:52 Respiratory Rate 18 05/04/19 13:52 Blood Pressure 116/72 05/04/19 13:52 O2 Sat by Pulse Oximetry (%) 94 L 05/04/19 13:52 Constitutional: Yes: No Distress, Calm Eyes: Yes: Conjunctiva Clear Neck: Yes: Supple. No: Tenderness Cardiovascular: Yes: Regular Rate and Rhythm Respiratory: Yes: CTA Bilaterally Gastrointestinal: Yes: Soft Edema: No Neurological: Yes: Alert, Tremors (mild), Other Psychiatric: Yes: Alert Labs: CBC, BMP 05/04/19 07:09 05/04/19 07:09 Problem List - Problems (1) ETOH abuse Code(s): F10.10 - ALCOHOL ABUSE, UNCOMPLICATED (2) Hyponatremia Code(s): E87.1 - HYPO-OSMOLALITY AND HYPONATREMIA (3) Alcohol dependence with uncomplicated withdrawal Code(s): F10.230 - ALCOHOL DEPENDENCE WITH WITHDRAWAL, UNCOMPLICATED Assessment/Plan Better discussed counselled about alcohol discussed about inpatient rehab- refuses taper librium aa meetings detox consult if stable - d/c in am Discussed with pts daughters also. will follow.
[2019-05-04] MEDS: chlordiazePOXIDE 5 MG CAPSULE PO SCH (21:56)
[2019-05-05] MEDS: LEVOTHYROXINE NA 88 MCG TABLET (FP) PO SCH (06:39)
[2019-05-05] MEDS: PANTOPRAZOLE 20 MG TABLET (FP) PO SCH (06:39)
[2019-05-05] MEDS: chlordiazePOXIDE 5 MG CAPSULE PO SCH (09:27)
[2019-05-05] MEDS: VALSARTAN 80 MG TABLET (UD) PO SCH (09:27)
[2019-05-05] MEDS: THIAMINE HCL 100 MG TABLET (FP) PO SCH (09:27)
[2019-05-05] MEDS: HEPARIN NA (PORCINE) 5,000 UNITS/ML 1ML VIAL SQ SCH (09:27)
[2019-05-05] MEDS: FOLIC ACID 1 MG TABLET (FP) PO SCH (09:27)
[2019-05-05] MEDS: PARoxetine HCL 20 MG TABLET PO SCH (09:27)
--- NOTE | 2019-05-05 09:44 | PN ---
[facility] Progress Note (SOAP) Subjective: 73 y.o. female patient referred for consultation for etoh use, pt reports alcohol use since late 50's , progressively increased frequency and amount of use to daily, current daily use 1 bottle wine minimum , reports tremors if not drinking , + blackouts, denies falls while intoxicated, denies seizures. Pt states she was previously hospitalized at [facility] for similar c/o , went to [facility] outpatient program x 8 months, graduated feb 18 2019 and relapsed towards the end of her participation in the program and did not reveal such to the staff , reports increased amount of alcohol use immediately after completing program and within two weeks " I was back where I left off " and has been drinking alcohol daily since then . Pt reports a desire to stop alcohol use , reports supportive family , denies driving while intoxicated , denies DUI / DWI . On Librium taper since admission 05/01/19 , per pt planning d/c to home today and is interested in AA meetings . PMHX : HTN , hypothyroidism . Active Medications Benzocaine/Menthol (Cepacol Lozenge -) 1 each MM PRN PRN PRN Reason: SORE THROAT Chlordiazepoxide HCl (Librium -) 10 mg PO BID [facility] Last Admin: 05/05/19 09:27 Dose: 10 mg Folic Acid (Folic Acid -) 1 mg PO DAILY [facility] Last Admin: 05/05/19 09:27 Dose: 1 mg Heparin Sodium (Porcine) (Heparin -) 5,000 unit SQ BID [facility] Last Admin: 05/05/19 09:27 Dose: 5,000 unit Sodium Chloride (Normal Saline -) 1,000 mls @ 100 mls/hr IV ASDIR [facility] Last Admin: 05/04/19 09:32 Dose: 100 mls/hr Levothyroxine Sodium (Synthroid -) 88 mcg PO AM [facility] Last Admin: 05/05/19 06:39 Dose: 88 mcg Metoprolol Succinate (Toprol Xl -) 50 mg PO DAILY [facility] Last Admin: 05/05/19 09:27 Dose: 50 mg Pantoprazole Sodium (Protonix -) 20 mg PO DAILY@0700 [facility] Last Admin: 05/05/19 06:39 Dose: 20 mg Paroxetine HCl (Paxil -) 20 mg PO DAILY [facility] Last Admin: 05/05/19 09:27 Dose: 20 mg Thiamine HCl (Vitamin B1 -) 100 mg PO BID [facility] Last Admin: 05/05/19 09:27 Dose: 100 mg Valsartan (Diovan -) 80 mg PO BID [facility] Last Admin: 05/05/19 09:27 Dose: 80 mg Objective: wnwd , anxious Neuro : + ue tremors Resp : no distress noted. CBC, BMP 05/04/19 07:09 05/04/19 07:09 Vital Signs - 24 hr 05/04/19 05/04/19 05/04/19 10:00 13:52 21:00 Temperature 98.2 F 98.4 F Pulse Rate 72 73 Respiratory 18 18 Rate Blood Pressure 112/67 116/72 O2 Sat by Pulse 95 94 L 98 Oximetry (%) 05/04/19 05/05/19 05/05/19 21:53 01:00 01:15 Temperature 98.0 F 97.8 F Pulse Rate 69 68 Respiratory 18 17 Rate Blood Pressure 139/89 126/70 O2 Sat by Pulse 96 Oximetry (%) 05/05/19 05/05/19 05:00 07:18 Temperature 97.9 F Pulse Rate 68 Respiratory 20 Rate Blood Pressure 135/82 O2 Sat by Pulse 97 Oximetry (%) Assessment: alcohol dependence with uncomplicated withdrawal Plan: pt to consider outpt program , appears interested in AA . Not currently interested in inpt rehab . Discussed MAT : Naltrexone, Antabuse , Campral, pt to consider and address w / PCP .
[2019-05-05 14:34] VITALS: BP 108/58; PULSE 72; TEMP 98.1
--- NOTE | 2019-05-05 16:36 | DS ---
Physical Examination Vital Signs: Vital Signs Temperature 98.1 F 05/05/19 14:33 Pulse Rate 72 05/05/19 14:33 Respiratory Rate 16 05/05/19 14:33 Blood Pressure 108/58 L 05/05/19 14:33 O2 Sat by Pulse Oximetry (%) 94 L 05/05/19 14:33 Findings/Remarks: feels well no complains wants to go home Detox consult noted== Discussed with pt regarding meds- Like Naltroxone will follow further in office Constitutional: Yes: No Distress, Calm Eyes: Yes: Conjunctiva Clear Neck: Yes: Supple Cardiovascular: Yes: Regular Rate and Rhythm Respiratory: Yes: CTA Bilaterally Gastrointestinal: Yes: Soft Edema: No Psychiatric: Yes: Alert Labs: CBC, BMP 05/04/19 07:09 05/04/19 07:09 Discharge Summary Reason For Visit: HYPONATREMIA Current Active Problems ETOH abuse (Acute) Hyponatremia (Acute) Hospital Course: admitted for alcohol intoxication/ hyponatremia treated appropriately with librium better not interested in in patient rehab. advised to attend out pt rehab/ aa meetings f/u in office next week meds reconcilled Condition: Stable - Instructions Disposition: HOME - Home Medications Comprehensive Discharge Medication List: Ambulatory Orders Levothyroxine Sodium [Synthroid] 88 mcg PO DAILY 04/15/17 Metoprolol Succinate [Toprol Xl] 50 mg PO DAILY 04/15/17 Omeprazole Magnesium [Prilosec] 20 mg PO DAILY 04/15/17 Paroxetine HCl [Paxil] 20 mg PO DAILY 04/15/17 Valsartan 80 mg PO BID 04/15/17 Folic Acid - 1 mg PO DAILY tablet 05/05/19 Thiamine HCl [Vitamin B1 -] 100 mg PO BID tablet 05/05/19
== END 2019-05-05 18:59 | disposition home or self-care (01) | DRG 897 ==
LOC: FER 22:48 → FM/S 05-02 00:43
PROVIDERS: ADMIT Internal Medicine; ATTEND Internal Medicine
DX: F10.229 Alcohol dependence with intoxication, unspecified (principal); E87.1 Hypo-osmolality and hyponatremia; F10.230 Alcohol dependence with withdrawal, uncomplicated; I10 Essential (primary) hypertension; E03.9 Hypothyroidism, unspecified; E83.42 Hypomagnesemia; F32.9 Major depressive disorder, single episode, unspecified; F10.239 Alcohol dependence with withdrawal, unspecified; Z87.891 Personal history of nicotine dependence; Z88.0 Allergy status to penicillin
CPT/HCPCS: 36415; 70450-TC; 71045-TC-FY; 80048; 80053; 80307; 81003; 81015; 82550; 82553; 83735; 84300; 84484; 85025; 87077; 87086; 93005; 99282-25; J1644; J7030

== ENCOUNTER 2020-12-15 12:50 | Inpatient (IN) | payer OTHER ==
[2020-12-15] MEDS ORDERED: FAMOTIDINE 20 MG/50 ML IVPB 20 MG/50 ML MG IVPB ONE ×2 (13:01→13:10)
[2020-12-15] MEDS ORDERED: MAG HYDROX/AL HYDROX/SIMETH 30 ML UNIT-DOSE CUP ONE (13:01)
[2020-12-15] MEDS ORDERED: MAG HYDROX/AL HYDROX/SIMETH -MYLANTA- ORAL SUSPENSION PO ONE (13:10)
[2020-12-15] MEDS ORDERED: ACETAMINOPHEN 1000 MG/100 ML VIAL (NON FORMULARY) IVPB ONE ×2 (13:12→13:13)
[2020-12-15] MEDS ORDERED: METOCLOPRAMIDE HCL INJECTION 10 MG/2 ML VIAL IVPUSH ONE (13:17)
[2020-12-15] MEDS ORDERED: MAGNESIUM SULF 50% (8.12 MEQ/2 ML-1 GM VIAL) IVPB ONE (13:28)
[2020-12-15] MEDS ORDERED: ACETAMINOPHEN INJECTION 100 ML IVPB ONE (13:32)
[2020-12-15] MEDS ORDERED: MAGNESIUM 1GM/D5W - 1 GM/100 ML IVPB IVPB ONE (13:33)
[2020-12-15 13:47] LABS: BASO % 3.7 % (0-2.0); EOS % 0.1 % (0-4.5); HEMATOCRIT 33.8 % (32.4-45.2); HEMOGLOBIN 10.8 GM/dl (10.7-15.3); LYMPH % 8.2 % (8-40); MCH 26.5 pg (25.7-33.7); MCHC 31.8 g/dl (32.0-36.0); MEAN CELL VOLUME 83.1 fl (80-96); MEAN PLT VOLUME 8.4 fl (7.5-11.1); MONO % 2.3 % (3.8-10.2); NEUT % 85.7 % (42.8-82.8); PLATELET COUNT 311 K/MM3 (134-434); RBC 4.07 M/mm3 (3.60-5.2); RDW 13.8 % (11.6-15.6); WHITE BLOOD COUNT 9.6 K/mm3 (4.0-10.8)
[2020-12-15 13:56] LABS: ALBUMIN 3.1 g/dl (3.4-5.0); BILIRUBIN,TOTAL 0.8 mg/dl (0.2-1); CREATININE 0.8 mg/dl (0.55-1.3)
[2020-12-15 14:00] LABS: POTASSIUM 2.5 mmol/L (3.5-5.1)
[2020-12-15 14:01] LABS: MAGNESIUM 0.6 mg/dL (1.8-2.4)
[2020-12-15] MEDS ORDERED: KCL 10 MEQ IVPB 20 MEQ/200 ML INFUS.BAG IVPB ONE (14:02)
[2020-12-15] MEDS: POTASSIUM CHLORIDE 20 MEQ PREMIX IVPB 100 ML IVPB ONE ×2 (14:40→15:30)
[2020-12-15] MEDS ORDERED: POTASSIUM CHLORIDE TABS 20 MEQ TABLET.ER (FP) PO ONE ×2 (15:36→15:38)
[2020-12-15 17:20] LABS: AMORP URATES 2+ /hpf (NONE SEEN); EPITHELIAL CELLS MODERATE /hpf
[2020-12-15] MEDS ORDERED: SODIUM CHLORIDE 0.9% 500 ML INFUS.BAG IV ONE (17:45)
[2020-12-15 21:16] VITALS: BMI 25.2
[2020-12-15] MEDS ORDERED: QUEtiapine FUMARATE 25 MG TABLET ONE (21:22)
[2020-12-15] MEDS ORDERED: QUEtiapine FUMARATE 50 MG TABLET PO SCH (22:00)
[2020-12-16] MEDS: LEVOTHYROXINE NA 88 MCG TABLET (FP) PO SCH (06:49)
[2020-12-16] MEDS ORDERED: QUEtiapine FUMARATE 25 MG TABLET ONE (07:35)
[2020-12-16 08:31] LABS: ALBUMIN 2.9 g/dl (3.4-5.0); BILIRUBIN,TOTAL 0.6 mg/dL (0.2-1); BLOOD UREA NITROGEN 5.2 mg/dL (7-18); CALCIUM 12.5 mg/dL (8.5-10.1); CREATININE 0.9 mg/dL (0.55-1.3); MAGNESIUM 1.4 mg/dL (1.8-2.4); POTASSIUM 3.3 mmol/L (3.5-5.1); TOT PROT 6.1 g/dl (6.4-8.2)
[2020-12-16] MEDS: PANTOPRAZOLE SODIUM 40 MG VIAL IVPUSH SCH (09:15)
[2020-12-16] MEDS: PARoxetine HCL 20 MG TABLET PO SCH (09:16)
[2020-12-16] MEDS: QUEtiapine FUMARATE 25 MG TABLET PO SCH ×2 (09:16→21:44)
[2020-12-16] MEDS: amLODIPine BESYLATE 5 MG TABLET (FP) PO SCH (09:19)
[2020-12-16] MEDS ORDERED: MAGNESIUM SULF 50% (8.12 MEQ/2 ML-1 GM VIAL) IVPB ONE (09:43)
[2020-12-16] MEDS ORDERED: POTASSIUM CHLORIDE ORAL LIQUID 20 MEQ/15 ML PO ONE (09:45)
[2020-12-16] MEDS ORDERED: MAGNESIUM SULFATE IN WATER 2 GM/50 ML IVPB IVPB ONE (10:00)
[2020-12-16 11:14] LABS: BASO % 1.2 % (0-2.0); EOS % 2.8 % (0-4.5); HEMATOCRIT 31.7 % (32.4-45.2); HEMOGLOBIN 10.6 GM/dL (10.7-15.3); LYMPH % 31.7 % (8-40); MCH 27.3 pg (25.7-33.7); MCHC 33.4 g/dl (32.0-36.0); MEAN CELL VOLUME 81.7 fl (80-96); MEAN PLT VOLUME 8.6 fl (7.5-11.1); MONO % 6.9 % (3.8-10.2); NEUT % 57.4 % (42.8-82.8); PLATELET COUNT 313 K/MM3 (134-434); RBC 3.89 M/mm3 (3.60-5.2); RDW 14.9 % (11.6-15.6); WHITE BLOOD COUNT 8.1 K/mm3 (4.0-10.0)
[2020-12-16] MEDS: MAG HYDROX/AL HYDROX/SIMETH 30 ML UNIT-DOSE CUP PO PRN (19:32)
[2020-12-17] MEDS: LEVOTHYROXINE NA 88 MCG TABLET (FP) PO SCH (06:31)
[2020-12-17] MEDS: QUEtiapine FUMARATE 25 MG TABLET PO SCH ×2 (09:38→21:24)
[2020-12-17] MEDS: amLODIPine BESYLATE 5 MG TABLET (FP) PO SCH (09:38)
[2020-12-17] MEDS: PARoxetine HCL 20 MG TABLET PO SCH (09:38)
[2020-12-17] MEDS: PANTOPRAZOLE SODIUM 40 MG VIAL IVPUSH SCH (09:38)
[2020-12-17 10:01] LABS: CALCIUM 9.6 mg/dl (8.5-10); CREATININE 0.8 mg/dl (0.55-1.3); POTASSIUM 4.3 mmol/L (3.5-5.1)
[2020-12-17] MEDS: MAG HYDROX/AL HYDROX/SIMETH 30 ML UNIT-DOSE CUP PO PRN (20:26)
[2020-12-18] MEDS: LEVOTHYROXINE NA 88 MCG TABLET (FP) PO SCH (06:53)
[2020-12-18] MEDS: QUEtiapine FUMARATE 25 MG TABLET PO SCH ×2 (09:37→21:24)
[2020-12-18] MEDS: PANTOPRAZOLE SODIUM 40 MG VIAL IVPUSH SCH (09:38)
[2020-12-18] MEDS: PARoxetine HCL 20 MG TABLET PO SCH (09:38)
[2020-12-18] MEDS: amLODIPine BESYLATE 5 MG TABLET (FP) PO SCH (09:41)
[2020-12-19] MEDS: LEVOTHYROXINE NA 88 MCG TABLET (FP) PO SCH (05:59)
[2020-12-19] MEDS: QUEtiapine FUMARATE 25 MG TABLET PO SCH (12:14)
[2020-12-19] MEDS: PARoxetine HCL 20 MG TABLET PO SCH (12:14)
[2020-12-19] MEDS: PANTOPRAZOLE SODIUM 40 MG VIAL IVPUSH SCH (12:15)
[2020-12-19] MEDS: amLODIPine BESYLATE 5 MG TABLET (FP) PO SCH (12:15)
[2020-12-19 15:59] LABS: URINE TOTAL VOLUME 3000 mL
[2020-12-19 20:02] VITALS: BP 109/76; PULSE 82; TEMP 98.4
== END 2020-12-19 20:00 | disposition home or self-care (01) | DRG 392 ==
LOC: FER 12:50 → SUPCPDRO 12:50 → FM/S 20:15
PROVIDERS: ADMIT Internal Medicine; ATTEND Internal Medicine
PROC: 0DB68ZX Excision of Stomach, Via Natural or Artificial Opening Endoscopic, Diagnostic (ICD-10-PCS; 2020-12-19)
PROC: 0DB58ZX Excision of Esophagus, Via Natural or Artificial Opening Endoscopic, Diagnostic (ICD-10-PCS; 2020-12-19)
PROC: 0DB98ZX Excision of Duodenum, Via Natural or Artificial Opening Endoscopic, Diagnostic (ICD-10-PCS; principal; 2020-12-19 11:08)
DX: K20.90 Esophagitis, unspecified without bleeding (principal); K44.9 Diaphragmatic hernia without obstruction or gangrene; K21.9 Gastro-esophageal reflux disease without esophagitis; I10 Essential (primary) hypertension; E87.6 Hypokalemia; E03.9 Hypothyroidism, unspecified; R10.9 Unspecified abdominal pain; F10.20 Alcohol dependence, uncomplicated; R19.7 Diarrhea, unspecified; F41.8 Other specified anxiety disorders; K29.70 Gastritis, unspecified, without bleeding
CPT/HCPCS: 36415; 71045-TC-FY; 71250-TC; 74177-TC; 74182-TC; 80048; 80053; 81003; 81015; 82384; 82565; 82570; 83605; 83690; 83735; 83835; 84156; 84443; 84484; 85025; 87077; 87086; 93005; 99285-25; A9579; C1887; C9803; J0131; U0003

== ENCOUNTER 2021-05-30 19:44 | Emergency (ER) | payer OTHER ==
[2021-06-01 18:07] LABS: SARS-CoV-2 NAA Detected (Not Detected)
== END 2021-05-30 21:11 | disposition home or self-care (01) ==
LOC: JVIRT 19:44
DX: Z20.822 Contact with and (suspected) exposure to COVID-19 (principal)
CPT/HCPCS: C9803; Q3014-GT; U0003; U0005

== ENCOUNTER 2021-06-01 20:30 | Emergency (ER) | payer OTHER ==
[2021-06-01] MEDS ORDERED: CASIRIVIMAB/IMDEVIMAB 10 ML in SODIUM CHLORIDE 100 ML IVPB ONE (20:35)
[2021-06-01 20:38] VITALS: BP 122/74; PULSE 65; TEMP 98.2; BMI 24.9
[2021-06-01 21:13] LABS: ALBUMIN 3.1 g/dl (3.4-5.0); ALK PHOS 31 U/L (45-117); ANION GAP 12 MMOL/L (8-16); BILIRUBIN,DIRECT 0.2 mg/dL (0.0-0.2); BILIRUBIN,TOTAL 0.7 mg/dl (0.2-1); CALCIUM 8.9 mg/dl (8.5-10); CHLORIDE 87 mmol/L (98-107); CO2 25 mmol/L (21-32); CREATININE 0.6 mg/dl (0.55-1.3); GLUCOSE,RANDOM 114 mg/dl (74-106); LDH 184 U/L (84-246); SGOT/AST 18 U/L (15-37); SGPT/ALT 12 U/L (13-61); SODIUM 124 mmol/L (136-145); TOT PROT 6.7 g/dl (6.4-8.2)
[2021-06-01 21:14] LABS: HEMATOCRIT 35.6 % (32.4-45.2); MCH 23.8 pg (25.7-33.7); MCHC 30.8 g/dl (32.0-36.0); MEAN CELL VOLUME 77.3 fl (80-96); MEAN PLT VOLUME 9.5 fl (7.5-11.1); PLATELET COUNT 423 10^3/uL (134-434); RBC 4.61 M/mm3 (3.60-5.2); RDW 18.4 % (11.6-15.6)
[2021-06-01 21:16] LABS: ACTIVATED PTT 30.1 SECONDS (25.2-36.5)
[2021-06-01 21:20] LABS: INR 1.36 (0.82-1.09); PROTHROMBIN TIME (PATIENT) 14.9 SEC (10.2-13.0)
[2021-06-01] MEDS ORDERED: KCL 10 MEQ IVPB 10 MEQ/100 ML INFUS.BAG IVPB ONE (21:27)
[2021-06-01] MEDS: KCL 10 MEQ IVPB 10 MEQ/100 ML INFUS.BAG IVPB SCH ×2 (21:29→23:17)
[2021-06-01] MEDS ORDERED: SODIUM CHLORIDE 0.9% 500 ML INFUS.BAG IV ONE (21:29)
[2021-06-01 21:40] LABS: ANISOCYTOSIS 1+; PLATELET ESTIMATE SLT INCREASE
[2021-06-01] MEDS ORDERED: ACETAMINOPHEN 1000 MG/100 ML VIAL (NON FORMULARY) IVPB ONE (22:08)
[2021-06-01] MEDS ORDERED: CEFTRIAXONE 1,000 MG in DEXTROSE 5%-WATER - 50 ML IVPB ONE (22:08)
[2021-06-01] MEDS ORDERED: cefTRIAXone SODIUM 1 GM VIAL ONE (22:52)
[2021-06-01] MEDS ORDERED: POTASSIUM CHLORIDE TABS 20 MEQ TABLET.ER (FP) PO ONE ×2 (22:52→23:15)
[2021-06-01] MEDS ORDERED: ACETAMINOPHEN INJECTION 100 ML IVPB ONE (22:52)
[2021-06-01 23:03] LABS: EPITHELIAL CELLS FEW /hpf
== END 2021-06-02 00:13 | disposition left against medical advice (07) ==
LOC: FER 20:30
PROC: 3E03329 Introduction of Other Anti-infective into Peripheral Vein, Percutaneous Approach (ICD-10-PCS; principal; 2021-06-01)
PROC: 3E033NZ Introduction of Analgesics, Hypnotics, Sedatives into Peripheral Vein, Percutaneous Approach (ICD-10-PCS; 2021-06-01)
PROC: 3E0337Z Introduction of Electrolytic and Water Balance Substance into Peripheral Vein, Percutaneous Approach (ICD-10-PCS; 2021-06-01)
PROC: 3E0337Z Introduction of Electrolytic and Water Balance Substance into Peripheral Vein, Percutaneous Approach (ICD-10-PCS; 2021-06-01)
DX: J12.82 Pneumonia due to coronavirus disease 2019 (principal); N39.0 Urinary tract infection, site not specified; E87.1 Hypo-osmolality and hyponatremia; R09.02 Hypoxemia; J44.9 Chronic obstructive pulmonary disease, unspecified
CPT/HCPCS: 36415; 71045-TC-FY; 80053; 81003; 81015; 82248; 82550; 82728; 83605; 83615; 84484; 85025; 85610; 85730; 86140; 87040; 87077; 87086; 93005; 99285-25; J0131; M0240; Q0240

== ENCOUNTER 2022-02-24 19:58 | Inpatient (IN) | payer OTHER ==
[2022-02-24] MEDS ORDERED: ASPIRIN 81 MG CHEWABLE TABLETS PO ONE (20:21)
[2022-02-24] MEDS ORDERED: ASPIRIN 81 MG CHEWABLE TABLETS ONE (20:28)
[2022-02-24 21:17] LABS: BASO % 0.2 % (0-2.0); HEMATOCRIT 39.3 % (32.4-45.2); HEMOGLOBIN 13.6 GM/dL (10.7-15.3); LYMPH % 6.3 % (8-40); MCH 31.2 pg (25.7-33.7); MCHC 34.7 g/dl (32.0-36.0); MEAN PLT VOLUME 7.6 fl (7.5-11.1); MONO % 5.3 % (3.8-10.2); NEUT % 88.2 % (42.8-82.8); PLATELET COUNT 128 10^3/uL (134-434); RBC 4.36 M/mm3 (3.60-5.2); RDW 14.6 % (11.6-15.6); WHITE BLOOD COUNT 8.2 K/mm3 (4.0-10.0)
[2022-02-24 21:21] LABS: INR 1.03 (0.83-1.09); PROTHROMBIN TIME (PATIENT) 11.8 SEC (9.7-13.0)
[2022-02-24 21:24] LABS: ACTIVATED PTT 32.3 SECONDS (25.2-36.5)
[2022-02-24 21:29] LABS: ALBUMIN 3.2 g/dl (3.4-5.0); BLOOD UREA NITROGEN 7.6 mg/dL (7-18); CALCIUM 8.5 mg/dL (8.5-10.1); MAGNESIUM 1.1 mg/dL (1.8-2.4)
[2022-02-24 21:32] LABS: CREATININE 0.7 mg/dL (0.55-1.3)
[2022-02-24 21:34] LABS: BILIRUBIN,TOTAL 1.7 mg/dL (0.2-1); TOT PROT 6.5 g/dl (6.4-8.2)
[2022-02-24] MEDS ORDERED: MAGNESIUM SULFATE IN WATER 2 GM/50 ML IVPB IVPB ONE (21:39)
[2022-02-24] MEDS ORDERED: SODIUM CHLORIDE 0.9% 500 ML INFUS.BAG IV ONE (21:39)
[2022-02-24] MEDS ORDERED: ONDANSETRON 4 MG/2 ML VIAL IVPUSH ONE (21:47)
[2022-02-24] MEDS ORDERED: ONDANSETRON 4 MG/2 ML VIAL ONE (21:47)
[2022-02-24] MEDS ORDERED: LORazepam 1 MG TABLET PO PRN (23:19)
[2022-02-25 08:08] LABS: BASO % 0.7 % (0-2.0); EOS % 1.2 % (0-4.5); HEMATOCRIT 36.9 % (32.4-45.2); HEMOGLOBIN 12.3 GM/dL (10.7-15.3); MCH 30.8 pg (25.7-33.7); MCHC 33.4 g/dl (32.0-36.0); MEAN CELL VOLUME 92.1 fl (80-96); MEAN PLT VOLUME 7.8 fl (7.5-11.1); MONO % 7.2 % (3.8-10.2); NEUT % 74.9 % (42.8-82.8); PLATELET COUNT 116 10^3/uL (134-434); RBC 4.01 M/mm3 (3.60-5.2); RDW 14.5 % (11.6-15.6); WHITE BLOOD COUNT 6.1 K/mm3 (4.0-10.0)
[2022-02-25] MEDS ORDERED: LORazepam 1 MG TABLET PO PRN ×2 (08:08→12:07)
[2022-02-25 08:34] LABS: ALBUMIN 2.8 g/dl (3.4-5.0); BLOOD UREA NITROGEN 6.5 mg/dL (7-18); CALCIUM 7.9 mg/dL (8.5-10.1)
[2022-02-25 08:37] LABS: CREATININE 0.6 mg/dL (0.55-1.3)
[2022-02-25 08:38] LABS: BILIRUBIN,TOTAL 1.5 mg/dL (0.2-1); TOT PROT 5.7 g/dl (6.4-8.2)
[2022-02-25] MEDS ORDERED: ASPIRIN 81 MG CHEWABLE TABLETS ONE (09:09)
[2022-02-25] MEDS ORDERED: POTASSIUM CHLORIDE TABS 20 MEQ TABLET.ER (FP) PO ONE ×2 (09:09→09:23)
[2022-02-25] MEDS ORDERED: D5-1/2NS+20 MEQ KCL - 20 MEQ/1,000 ML INFUS.BAG IV SCH ×2 (09:15→12:07)
[2022-02-25] MEDS ORDERED: THIAMINE HCL 200 MG/2 ML VIAL ONE (09:23)
[2022-02-25] MEDS ORDERED: FOLIC ACID 1 MG TABLET (FP) ONE (09:23)
[2022-02-25] MEDS ORDERED: ONDANSETRON 4 MG/2 ML VIAL IVPUSH PRN ×2 (09:31→12:07)
[2022-02-25] MEDS ORDERED: LORazepam 1 MG TABLET ONE (09:56)
[2022-02-25] MEDS ORDERED: PANTOPRAZOLE SODIUM 40 MG VIAL ONE (09:57)
[2022-02-25] MEDS ORDERED: FOLIC ACID 1 MG TABLET (FP) PO SCH (10:00)
[2022-02-25] MEDS ORDERED: PANTOPRAZOLE SODIUM 40 MG VIAL IVPUSH SCH (10:00)
[2022-02-25] MEDS ORDERED: ASPIRIN 81 MG CHEWABLE TABLETS PO SCH (10:00)
[2022-02-25] MEDS ORDERED: THIAMINE HCL 200 MG/2 ML VIAL IVPB SCH (10:00)
[2022-02-25] MEDS ORDERED: LORazepam 1 MG TABLET PO SCH (11:00)
[2022-02-25] MEDS: LORazepam 1 MG TABLET PO SCH (16:42)
[2022-02-25] MEDS: D5-NS + 20 MEQ KCL - 20 MEQ/1,000 ML INFUS.BAG IV SCH (18:03)
[2022-02-26] MEDS ORDERED: ACETAMINOPHEN 325 MG TABLET (FP) PO ONE (00:15)
[2022-02-26] MEDS: LORazepam 1 MG TABLET PO SCH ×5 (00:26→22:28)
[2022-02-26] MEDS: D5-NS + 20 MEQ KCL - 20 MEQ/1,000 ML INFUS.BAG IV SCH ×2 (06:12→18:24)
[2022-02-26 10:04] VITALS: BMI 25.5
[2022-02-26] MEDS: THIAMINE HCL 200 MG/2 ML VIAL IVPB SCH (10:15)
[2022-02-26] MEDS: ASPIRIN 81 MG CHEWABLE TABLETS PO SCH (10:15)
[2022-02-26] MEDS: FOLIC ACID 1 MG TABLET (FP) PO SCH (10:15)
[2022-02-26] MEDS: PANTOPRAZOLE SODIUM 40 MG VIAL IVPUSH SCH (10:15)
[2022-02-26 16:08] LABS: ALBUMIN 2.5 g/dl (3.4-5.0); BLOOD UREA NITROGEN 6.8 mg/dL (7-18); CALCIUM 7.6 mg/dL (8.5-10.1)
[2022-02-26 16:11] LABS: CREATININE 0.6 mg/dL (0.55-1.3)
[2022-02-26 16:13] LABS: BILIRUBIN,TOTAL 0.5 mg/dL (0.2-1); TOT PROT 5.3 g/dl (6.4-8.2)
[2022-02-26] MEDS: LORazepam 1 MG TABLET PO PRN (21:18)
[2022-02-27] MEDS: LORazepam 1 MG TABLET PO PRN (02:10)
[2022-02-27] MEDS: D5-NS + 20 MEQ KCL - 20 MEQ/1,000 ML INFUS.BAG IV SCH ×2 (02:53→17:32)
[2022-02-27] MEDS ORDERED: LORazepam 1 MG TABLET PO SCH (05:00)
[2022-02-27] MEDS: LORazepam 1 MG TABLET PO SCH ×4 (05:28→22:26)
[2022-02-27] MEDS: LEVOTHYROXINE NA 88 MCG TABLET (FP) PO SCH (06:00)
[2022-02-27 10:12] LABS: CHLORIDE 91 mmol/L (98-107); SODIUM 128 mmol/L (136-145)
[2022-02-27 10:24] LABS: CALCIUM 7.9 mg/dL (8.5-10.1)
[2022-02-27 10:25] LABS: ALBUMIN 2.7 g/dl (3.4-5.0); ANION GAP 7 MMOL/L (8-16); CO2 30 mmol/L (21-32); GLUCOSE,RANDOM 95 mg/dL (74-106)
[2022-02-27 10:28] LABS: CREATININE 0.4 mg/dL (0.55-1.3); SGOT/AST 30 U/L (15-37)
[2022-02-27 10:30] LABS: ALK PHOS 38 U/L (45-117); SGPT/ALT 21 U/L (13-61); TOT PROT 5.8 g/dl (6.4-8.2)
[2022-02-27 10:32] LABS: BILIRUBIN,TOTAL 1.3 mg/dL (0.2-1)
[2022-02-27 10:34] LABS: BLOOD UREA NITROGEN 2.6 mg/dL (7-18)
[2022-02-27] MEDS: FOLIC ACID 1 MG TABLET (FP) PO SCH (11:29)
[2022-02-27] MEDS: PANTOPRAZOLE SODIUM 40 MG VIAL IVPUSH SCH (11:29)
[2022-02-27] MEDS: amLODIPine BESYLATE 5 MG TABLET (FP) PO SCH (11:29)
[2022-02-27] MEDS: THIAMINE HCL 200 MG/2 ML VIAL IVPB SCH (11:29)
[2022-02-27] MEDS: ASPIRIN 81 MG CHEWABLE TABLETS PO SCH (11:29)
[2022-02-27] MEDS ORDERED: POTASSIUM CHLORIDE TABS 20 MEQ TABLET.ER (FP) PO ONE (15:00)
[2022-02-28] MEDS ORDERED: LORazepam 0.5 MG TABLET PO PRN ×2
[2022-02-28] MEDS ORDERED: LORazepam 0.5 MG TABLET PO SCH (05:00)
[2022-02-28] MEDS: LEVOTHYROXINE NA 88 MCG TABLET (FP) PO SCH (06:01)
[2022-02-28] MEDS: LORazepam 0.5 MG TABLET PO SCH ×4 (06:01→22:27)
[2022-02-28] MEDS: amLODIPine BESYLATE 5 MG TABLET (FP) PO SCH (09:23)
[2022-02-28] MEDS: ASPIRIN 81 MG CHEWABLE TABLETS PO SCH (09:23)
[2022-02-28] MEDS: FOLIC ACID 1 MG TABLET (FP) PO SCH (09:24)
[2022-02-28] MEDS: THIAMINE HCL 200 MG/2 ML VIAL IVPB SCH (09:24)
[2022-02-28] MEDS: PANTOPRAZOLE SODIUM 40 MG VIAL IVPUSH SCH (09:24)
[2022-02-28] MEDS: D5-NS + 20 MEQ KCL - 20 MEQ/1,000 ML INFUS.BAG IV SCH (09:25)
[2022-02-28 10:18] LABS: CHLORIDE 93 mmol/L (98-107); SODIUM 128 mmol/L (136-145)
[2022-02-28 10:27] LABS: CALCIUM 8.5 mg/dL (8.5-10.1)
[2022-02-28 10:28] LABS: ANION GAP 7 MMOL/L (8-16); CO2 28 mmol/L (21-32); GLUCOSE,RANDOM 101 mg/dL (74-106)
[2022-02-28 10:31] LABS: CREATININE 0.4 mg/dL (0.55-1.3)
[2022-02-28 10:32] LABS: BILIRUBIN,TOTAL 0.5 mg/dL (0.2-1); SGOT/AST 28 U/L (15-37); SGPT/ALT 24 U/L (13-61); TOT PROT 6.2 g/dl (6.4-8.2)
[2022-02-28 10:33] LABS: ALK PHOS 40 U/L (45-117)
[2022-02-28 10:43] LABS: BLOOD UREA NITROGEN 2.4 mg/dL (7-18)
[2022-02-28] MEDS: SODIUM CHLORIDE 1 GM TABLET PO SCH ×2 (12:29→22:26)
[2022-02-28] MEDS: HEPARIN NA (PORCINE) 5,000 UNITS/ML 1ML VIAL SQ SCH (22:27)
[2022-03-01] MEDS ORDERED: LORazepam 0.5 MG TABLET PO ONE ×2 (05:00)
[2022-03-01] MEDS: LEVOTHYROXINE NA 88 MCG TABLET (FP) PO SCH (06:01)
[2022-03-01] MEDS: ASPIRIN 81 MG CHEWABLE TABLETS PO SCH (09:35)
[2022-03-01] MEDS: HEPARIN NA (PORCINE) 5,000 UNITS/ML 1ML VIAL SQ SCH ×2 (09:35→21:58)
[2022-03-01] MEDS: SODIUM CHLORIDE 1 GM TABLET PO SCH ×2 (09:35→21:59)
[2022-03-01] MEDS: amLODIPine BESYLATE 5 MG TABLET (FP) PO SCH (09:35)
[2022-03-01] MEDS: PANTOPRAZOLE SODIUM 40 MG VIAL IVPUSH SCH (09:35)
[2022-03-01] MEDS: FOLIC ACID 1 MG TABLET (FP) PO SCH (09:35)
[2022-03-01] MEDS: THIAMINE HCL 200 MG/2 ML VIAL IVPB SCH (09:35)
[2022-03-01] MEDS: D5-NS + 20 MEQ KCL - 20 MEQ/1,000 ML INFUS.BAG IV SCH (09:37)
[2022-03-01 16:09] LABS: CALCIUM 8.6 mg/dL (8.5-10.1)
[2022-03-01 16:10] LABS: ALBUMIN 2.7 g/dl (3.4-5.0); BLOOD UREA NITROGEN 4.9 mg/dL (7-18)
[2022-03-01 16:13] LABS: CREATININE 0.6 mg/dL (0.55-1.3)
[2022-03-01 16:14] LABS: BILIRUBIN,TOTAL 0.3 mg/dL (0.2-1); TOT PROT 5.8 g/dl (6.4-8.2)
[2022-03-02] MEDS ORDERED: BENZOCAINE/MENTH/CETYLPYRD CL 1 EACH LOZENGE MM PRN (00:59)
[2022-03-02] MEDS: LEVOTHYROXINE NA 88 MCG TABLET (FP) PO SCH (06:21)
[2022-03-02 10:28] LABS: BLOOD UREA NITROGEN 5.9 mg/dL (7-18); CALCIUM 9.2 mg/dL (8.5-10.1)
[2022-03-02 10:31] LABS: BILIRUBIN,TOTAL 0.5 mg/dL (0.2-1); CREATININE 0.5 mg/dL (0.55-1.3)
[2022-03-02 10:33] LABS: TOT PROT 6.4 g/dl (6.4-8.2)
[2022-03-02] MEDS: PANTOPRAZOLE SODIUM 40 MG VIAL IVPUSH SCH (11:13)
[2022-03-02] MEDS: THIAMINE HCL 200 MG/2 ML VIAL IVPB SCH (11:14)
[2022-03-02] MEDS: FOLIC ACID 1 MG TABLET (FP) PO SCH (11:15)
[2022-03-02] MEDS: amLODIPine BESYLATE 5 MG TABLET (FP) PO SCH (11:15)
[2022-03-02] MEDS: ASPIRIN 81 MG CHEWABLE TABLETS PO SCH (11:15)
[2022-03-02] MEDS: HEPARIN NA (PORCINE) 5,000 UNITS/ML 1ML VIAL SQ SCH ×2 (11:15→21:21)
[2022-03-02] MEDS: SODIUM CHLORIDE 1 GM TABLET PO SCH ×4 (11:26→21:21)
[2022-03-02] MEDS: THIAMINE HCL 100 MG TABLET (FP) PO SCH (11:52)
[2022-03-02] MEDS: PANTOPRAZOLE 40 MG TABLET PO SCH (11:52)
[2022-03-02] MEDS ORDERED: SODIUM CHLORIDE 1 GM TABLET PO SCH (14:00)
[2022-03-03] MEDS: SODIUM CHLORIDE 1 GM TABLET PO SCH ×2 (05:26→13:38)
[2022-03-03] MEDS: LEVOTHYROXINE NA 88 MCG TABLET (FP) PO SCH (06:20)
[2022-03-03] MEDS: ASPIRIN 81 MG CHEWABLE TABLETS PO SCH (09:05)
[2022-03-03] MEDS: PANTOPRAZOLE 40 MG TABLET PO SCH (09:05)
[2022-03-03] MEDS: amLODIPine BESYLATE 5 MG TABLET (FP) PO SCH (09:05)
[2022-03-03] MEDS: THIAMINE HCL 100 MG TABLET (FP) PO SCH (09:05)
[2022-03-03] MEDS: FOLIC ACID 1 MG TABLET (FP) PO SCH (09:06)
[2022-03-03] MEDS: HEPARIN NA (PORCINE) 5,000 UNITS/ML 1ML VIAL SQ SCH (09:13)
[2022-03-03 11:00] LABS: ALBUMIN 2.9 g/dl (3.4-5.0); CALCIUM 9.1 mg/dL (8.5-10.1)
[2022-03-03 11:03] LABS: CREATININE 0.6 mg/dL (0.55-1.3)
[2022-03-03 11:05] LABS: BILIRUBIN,TOTAL 0.4 mg/dL (0.2-1); TOT PROT 6.2 g/dl (6.4-8.2)
[2022-03-03] MEDS ORDERED: POTASSIUM CHLORIDE TABS 10 MEQ TABLET.ER (FP) PO ONE (13:10)
[2022-03-03 14:00] VITALS: BP 117/65; PULSE 68; TEMP 98.5
== END 2022-03-03 15:22 | disposition home or self-care (01) | DRG 897 ==
LOC: JER 19:58 → JERBED 21:24 → J5S 02-25 11:24 → OBSVTOIN 02-27 11:27
PROVIDERS: ADMIT Internal Medicine; ATTEND Internal Medicine
DX: F10.230 Alcohol dependence with withdrawal, uncomplicated (principal); E87.1 Hypo-osmolality and hyponatremia; I10 Essential (primary) hypertension; E78.5 Hyperlipidemia, unspecified; J44.9 Chronic obstructive pulmonary disease, unspecified; E83.42 Hypomagnesemia; E03.9 Hypothyroidism, unspecified; E87.6 Hypokalemia; R07.89 Other chest pain; F39 Unspecified mood [affective] disorder
CPT/HCPCS: 36415; 71045-TC-FY; 80053; 80061; 80307; 82436; 82533; 83735; 83930; 83935; 84133; 84300; 84439; 84443; 84481; 84484; 85025; 85610; 85730; 93005; 93010; 93306-TC; 97116-GP; 97161-GP; 99285-25; C9803-CS; G0378; J1644; U0003; U0005

== ENCOUNTER 2023-03-13 11:00 | Inpatient (IN) | payer OTHER ==
[2023-03-13] MEDS ORDERED: ACETAMINOPHEN 1000 MG/100 ML BAG IVPB ONE (11:23)
[2023-03-13] MEDS ORDERED: KETOROLAC TROMETHAMINE 15 MG/ML VIAL IVPUSH ONE (11:23)
[2023-03-13] MEDS ORDERED: ACETAMINOPHEN INJECTION 100 ML IVPB ONE ×2 (11:39→19:00)
[2023-03-13] MEDS ORDERED: KETOROLAC TROMETHAMINE 15 MG/ML VIAL ONE (11:39)
[2023-03-13 12:02] LABS: VENOUS BASE EXCESS 2.7 mmol/L (-2-2); VENOUS O2 SATURATION 27.5 % (70-80); VENOUS PCO2 46.4 mmHg (38-52); VENOUS PH 7.399 (7.310-7.410)
[2023-03-13 12:08] LABS: BASO % 0.8 % (0-2.0); EOS % 0.8 % (0-4.5); HEMATOCRIT 30.9 % (32.4-45.2); HEMOGLOBIN 9.9 GM/dL (10.7-15.3); LYMPH % 7.6 % (8-40); MCH 23.9 pg (25.7-33.7); MCHC 31.9 g/dl (32.0-36.0); MEAN CELL VOLUME 74.8 fl (80-96); MEAN PLT VOLUME 8.7 fl (7.5-11.1); MONO % 3.4 % (3.8-10.2); NEUT % 87.4 % (42.8-82.8); PLATELET COUNT 348 10^3/uL (134-434); RBC 4.13 M/mm3 (3.60-5.2); RDW 16.3 % (11.6-15.6)
[2023-03-13 12:42] LABS: CHLORIDE 85 mmol/L (98-107); POTASSIUM 3.8 mmol/L (3.5-5.1); SODIUM 124 mmol/L (136-145)
[2023-03-13 12:44] LABS: ALBUMIN 3.2 g/dl (3.4-5.0); ANION GAP 11 MMOL/L (8-16); BLOOD UREA NITROGEN 9.4 mg/dL (7-18); CALCIUM 8.6 mg/dL (8.5-10.1); CO2 27 mmol/L (21-32); GLUCOSE,RANDOM 104 mg/dL (74-106)
[2023-03-13 12:45] LABS: LIPASE 110 U/L (73-393)
[2023-03-13 12:47] LABS: CREATININE 0.8 mg/dL (0.55-1.3); SGOT/AST 45 U/L (15-37); SGPT/ALT 18 U/L (13-61)
[2023-03-13 12:49] LABS: TOT PROT 6.9 g/dl (6.4-8.2)
[2023-03-13 12:50] LABS: ALK PHOS 59 U/L (45-117)
[2023-03-13] MEDS ORDERED: MAG HYDROX/AL HYDROX/SIMETH 30 ML UNIT-DOSE CUP PO PRN (17:17)
[2023-03-13] MEDS ORDERED: ALBUTEROL SO4 0.083% IH SOL 2.5 MG/3 ML VIAL.NEB. NEB PRN (17:19)
[2023-03-13] MEDS ORDERED: ALPRAZolam 0.25 MG TABLET PO PRN (18:45)
[2023-03-13] MEDS ORDERED: ALPRAZolam 0.25 MG TABLET ONE (18:59)
[2023-03-13] MEDS: ACETAMINOPHEN 1000 MG/100 ML BAG IVPB PRN (19:06)
[2023-03-13] MEDS: SODIUM CHLORIDE 1 GM TABLET PO SCH (22:01)
[2023-03-13] MEDS: QUEtiapine FUMARATE 50 MG TABLET PO SCH (22:01)
[2023-03-13] MEDS: HEPARIN NA (PORCINE) 5,000 UNITS/ML 1ML VIAL SQ SCH (22:02)
[2023-03-13] MEDS: PANTOPRAZOLE 40 MG TABLET PO SCH (22:02)
[2023-03-13] MEDS: CEFTRIAXONE 1 GM in DEXTROSE 5%-WATER - 50 ML IVPB SCH (22:08)
[2023-03-14] MEDS: ACETAMINOPHEN 1000 MG/100 ML BAG IVPB PRN ×2 (02:15→08:10)
[2023-03-14] MEDS ORDERED: LEVOTHYROXINE NA 88 MCG TABLET (FP) PO SCH (07:00)
[2023-03-14 08:22] LABS: BASO % 0.6 % (0-2.0); EOS % 2.3 % (0-4.5); HEMATOCRIT 26.6 % (32.4-45.2); HEMOGLOBIN 8.3 GM/dL (10.7-15.3); LYMPH % 8.4 % (8-40); MCH 23.3 pg (25.7-33.7); MCHC 31.2 g/dl (32.0-36.0); MEAN CELL VOLUME 74.6 fl (80-96); MEAN PLT VOLUME 8.5 fl (7.5-11.1); MONO % 4.5 % (3.8-10.2); NEUT % 84.2 % (42.8-82.8); PLATELET COUNT 275 10^3/uL (134-434); RBC 3.57 M/mm3 (3.60-5.2); WHITE BLOOD COUNT 11.6 K/mm3 (4.0-10.0)
[2023-03-14 08:39] LABS: POTASSIUM 3.8 mmol/L (3.5-5.1)
[2023-03-14 08:48] LABS: CALCIUM 7.4 mg/dL (8.5-10.1)
[2023-03-14 08:52] LABS: CREATININE 0.6 mg/dL (0.55-1.3)
[2023-03-14 08:53] LABS: BILIRUBIN,TOTAL 0.7 mg/dL (0.2-1); TOT PROT 5.6 g/dl (6.4-8.2)
[2023-03-14 09:11] LABS: ALBUMIN 2.6 g/dl (3.4-5.0)
[2023-03-14] MEDS: PANTOPRAZOLE 40 MG TABLET PO SCH ×2 (09:57→22:26)
[2023-03-14] MEDS: SODIUM CHLORIDE 1 GM TABLET PO SCH ×2 (09:57→23:36)
[2023-03-14] MEDS: QUEtiapine FUMARATE 50 MG TABLET PO SCH ×2 (09:57→22:26)
[2023-03-14] MEDS: CEFTRIAXONE 1 GM in DEXTROSE 5%-WATER - 50 ML IVPB SCH (09:57)
[2023-03-14] MEDS ORDERED: amLODIPine BESYLATE 5 MG TABLET (FP) PO SCH (10:00)
[2023-03-14] MEDS ORDERED: PARoxetine HCL 20 MG TABLET PO SCH (10:00)
[2023-03-14] MEDS ORDERED: ASPIRIN 81 MG CHEWABLE TABLETS PO SCH (10:00)
[2023-03-14] MEDS ORDERED: THIAMINE HCL 100 MG TABLET (FP) PO SCH (10:00)
[2023-03-14] MEDS ORDERED: FOLIC ACID 1 MG TABLET (FP) PO SCH (10:00)
[2023-03-14] MEDS: HEPARIN NA (PORCINE) 5,000 UNITS/ML 1ML VIAL SQ SCH (10:15)
[2023-03-14] MEDS ORDERED: KETOROLAC TROMETHAMINE 30 MG/1 ML VIAL IVPUSH PRN (10:36)
[2023-03-14] MEDS ORDERED: LEVOTHYROXINE NA 100 MCG TABLET (FP) PO SCH (10:37)
[2023-03-14] MEDS ORDERED: BUPIVACAINE HCL/PF 0.5% (5MG/ML) 10 ML VIAL ONE (13:57)
[2023-03-14] MEDS ORDERED: ONDANSETRON 4 MG/2 ML VIAL IVPUSH PRN ×3 (13:58→16:17)
[2023-03-14] MEDS ORDERED: MIDAZOLAM HCL 2 MG/2 ML SINGLE DOSE VIAL ONE (13:58)
[2023-03-14] MEDS ORDERED: LACTATED RINGERS SOLUTION 1,000 ML IV SCH ×2 (14:00→16:15)
[2023-03-14] MEDS ORDERED: PROPOFOL 40 ML ONE (14:29)
[2023-03-14] MEDS ORDERED: SUCCINYLCHOLINE CHLORIDE 200 MG/10 ML SYRINGE ONE (14:30)
[2023-03-14] MEDS ORDERED: ROCURONIUM BROMIDE 50 MG/5 ML SYRINGE ONE (14:39)
[2023-03-14] MEDS ORDERED: PHENYLEPHRINE HCL 10 MG/1 ML SINGLE DOSE VIAL ONE (14:48)
[2023-03-14] MEDS ORDERED: SUGAMMADEX SODIUM 200 MG/2 ML VIAL ONE (15:19)
[2023-03-14] MEDS ORDERED: ONDANSETRON 4 MG/2 ML VIAL ONE (15:28)
[2023-03-14] MEDS ORDERED: ACETAMINOPHEN 1000 MG/100 ML BAG IVPB ONE (16:14)
[2023-03-14] MEDS ORDERED: MAG HYDROX/AL HYDROX/SIMETH 30 ML UNIT-DOSE CUP PO PRN (16:17)
[2023-03-14] MEDS ORDERED: ALBUTEROL SO4 0.083% IH SOL 2.5 MG/3 ML VIAL.NEB. NEB PRN (16:17)
[2023-03-14] MEDS ORDERED: ACETAMINOPHEN INJECTION 100 ML IVPB ONE (16:29)
[2023-03-14 17:49] LABS: ARTERIAL BLD GAS O2 SATURATION 96.6 % (95-98); ARTERIAL BLOOD GAS BASE EXCESS -2.2 mmol/L (-2-2); ARTERIAL BLOOD GAS PO2 110.3 mmHg (80-100)
[2023-03-14 17:50] LABS: ALLENS TEST POSITIVE
[2023-03-14 17:53] LABS: ARTERIAL BLOOD GAS pH 7.181 (7.350-7.450)
[2023-03-14] MEDS: SODIUM CHLORIDE 1,000 ML IV SCH (18:15)
[2023-03-14 18:26] LABS: ARTERIAL BLD GAS O2 SATURATION 93.8 % (95-98); ARTERIAL BLOOD GAS BASE EXCESS -1.1 mmol/L (-2-2); ARTERIAL BLOOD GAS PO2 83.2 mmHg (80-100); ARTERIAL BLOOD GAS pH 7.223 (7.350-7.450)
[2023-03-14 18:29] LABS: ALLENS TEST POSITIVE
[2023-03-14 18:35] LABS: POTASSIUM 3.9 mmol/L (3.5-5.1)
[2023-03-14 18:36] LABS: BLOOD UREA NITROGEN 8.1 mg/dL (7-18); CALCIUM 7.2 mg/dL (8.5-10.1)
[2023-03-14 18:38] LABS: ALBUMIN 2.5 g/dl (3.4-5.0)
[2023-03-14 18:40] LABS: CREATININE 0.6 mg/dL (0.55-1.3)
[2023-03-14 18:42] LABS: BILIRUBIN,TOTAL 0.5 mg/dL (0.2-1); TOT PROT 5.5 g/dl (6.4-8.2)
[2023-03-14 20:14] LABS: BASO % 1.1 % (0-2.0); EOS % 0.4 % (0-4.5); HEMOGLOBIN 7.6 GM/dL (10.7-15.3); LYMPH % 4.6 % (8-40); MCH 23.9 pg (25.7-33.7); MCHC 31.9 g/dl (32.0-36.0); MEAN CELL VOLUME 75.2 fl (80-96); MEAN PLT VOLUME 8.1 fl (7.5-11.1); MONO % 5.7 % (3.8-10.2); NEUT % 88.2 % (42.8-82.8); PLATELET COUNT 288 10^3/uL (134-434); RBC 3.19 M/mm3 (3.60-5.2); WHITE BLOOD COUNT 14.7 K/mm3 (4.0-10.0)
[2023-03-14 21:43] LABS: ARTERIAL BLOOD GAS BASE EXCESS -3.2 mmol/L (-2-2); ARTERIAL BLOOD GAS PO2 181.1 mmHg (80-100); ARTERIAL BLOOD GAS pH 7.272 (7.350-7.450)
[2023-03-14 21:44] LABS: ALLENS TEST POSITIVE
[2023-03-14] MEDS ORDERED: SENNOSIDES/DOCUSATE COMBO (SENNA PLUS) TABLET (UD) PO SCH (22:00)
[2023-03-14] MEDS ORDERED: CEFAZOLIN SODIUM 2 GM in DEXTROSE 5%-WATER 100 ML IVPB SCH (22:00)
[2023-03-14] MEDS ORDERED: SODIUM CHLORIDE 1,000 ML IV STA (22:04)
[2023-03-14] MEDS: SENNOSIDES/DOCUSATE COMBO (SENNA PLUS) TABLET (UD) PO SCH (22:26)
[2023-03-14] MEDS: CEFAZOLIN SODIUM 2 GM in DEXTROSE 5%-WATER 100 ML IVPB SCH (22:26)
[2023-03-14 23:25] LABS: POTASSIUM 4.1 mmol/L (3.5-5.1)
[2023-03-14 23:28] LABS: ALBUMIN 2.1 g/dl (3.4-5.0); BLOOD UREA NITROGEN 7.9 mg/dL (7-18)
[2023-03-14 23:31] LABS: CREATININE 0.7 mg/dL (0.55-1.3)
[2023-03-14 23:32] LABS: BILIRUBIN,TOTAL 0.4 mg/dL (0.2-1)
[2023-03-14 23:33] LABS: TOT PROT 4.7 g/dl (6.4-8.2)
[2023-03-15] MEDS ORDERED: SODIUM CHLORIDE 1,000 ML IV STA (00:17)
[2023-03-15] MEDS: KETOROLAC TROMETHAMINE 30 MG/1 ML VIAL IVPUSH PRN ×2 (00:39→21:04)
[2023-03-15] MEDS: CEFAZOLIN SODIUM 2 GM in DEXTROSE 5%-WATER 100 ML IVPB SCH (05:32)
[2023-03-15] MEDS: LEVOTHYROXINE NA 100 MCG TABLET (FP) PO SCH (06:01)
[2023-03-15 07:38] LABS: HEMATOCRIT 24.9 % (32.4-45.2); HEMOGLOBIN 8.1 GM/dL (10.7-15.3); MCH 24.8 pg (25.7-33.7); MCHC 32.4 g/dl (32.0-36.0); MEAN CELL VOLUME 76.5 fl (80-96); MEAN PLT VOLUME 8.6 fl (7.5-11.1); PLATELET COUNT 246 10^3/uL (134-434); RBC 3.26 M/mm3 (3.60-5.2); RDW 15.7 % (11.6-15.6); WHITE BLOOD COUNT 10.1 K/mm3 (4.0-10.0)
[2023-03-15] MEDS ORDERED: ASPIRIN 325 MG TABLET PO SCH (08:00)
[2023-03-15 08:02] LABS: CHLORIDE 89 mmol/L (98-107); POTASSIUM 4.3 mmol/L (3.5-5.1); SODIUM 123 mmol/L (136-145)
[2023-03-15 08:04] LABS: ALBUMIN 2.1 g/dl (3.4-5.0); ANION GAP 8 MMOL/L (8-16); BLOOD UREA NITROGEN 6.8 mg/dL (7-18); CO2 27 mmol/L (21-32); GLUCOSE,RANDOM 97 mg/dL (74-106)
[2023-03-15 08:07] LABS: CREATININE 0.7 mg/dL (0.55-1.3); PHOSPHOROUS 3.1 mg/dL (2.5-4.9); SGOT/AST 45 U/L (15-37); SGPT/ALT 17 U/L (13-61)
[2023-03-15 08:09] LABS: BILIRUBIN,TOTAL 0.6 mg/dL (0.2-1)
[2023-03-15 08:10] LABS: ALK PHOS 36 U/L (45-117)
[2023-03-15 08:11] LABS: TOT PROT 4.7 g/dl (6.4-8.2)
[2023-03-15 08:33] LABS: CALCIUM 6.7 mg/dL (8.5-10.1); MAGNESIUM 0.7 mg/dL (1.8-2.4)
[2023-03-15] MEDS: PANTOPRAZOLE 40 MG TABLET PO SCH ×2 (09:19→21:06)
[2023-03-15] MEDS: SENNOSIDES/DOCUSATE COMBO (SENNA PLUS) TABLET (UD) PO SCH ×2 (09:19→21:06)
[2023-03-15] MEDS: FOLIC ACID 1 MG TABLET (FP) PO SCH (09:20)
[2023-03-15] MEDS: QUEtiapine FUMARATE 50 MG TABLET PO SCH ×2 (09:20→21:07)
[2023-03-15] MEDS: CEFTRIAXONE 1 GM in DEXTROSE 5%-WATER - 50 ML IVPB SCH (09:20)
[2023-03-15] MEDS: THIAMINE HCL 100 MG TABLET (FP) PO SCH (09:20)
[2023-03-15] MEDS: ASPIRIN 325 MG TABLET PO SCH (09:20)
[2023-03-15] MEDS: PARoxetine HCL 20 MG TABLET PO SCH (09:20)
[2023-03-15] MEDS ORDERED: MAGNESIUM 2GM/50ML STERILE WATER IVPB IVPB ONE ×2 (09:30→11:00)
[2023-03-15] MEDS ORDERED: amLODIPine BESYLATE 5 MG TABLET (FP) PO SCH (10:00)
[2023-03-15 12:20] LABS: CHLORIDE 89 mmol/L (98-107); POTASSIUM 4.2 mmol/L (3.5-5.1); SODIUM 123 mmol/L (136-145)
[2023-03-15 12:22] LABS: ANION GAP 11 MMOL/L (8-16); BLOOD UREA NITROGEN 7.3 mg/dL (7-18); CO2 23 mmol/L (21-32)
[2023-03-15 12:24] LABS: ALBUMIN 2.1 g/dl (3.4-5.0); GLUCOSE,RANDOM 107 mg/dL (74-106); MAGNESIUM 1.6 mg/dL (1.8-2.4)
[2023-03-15 12:26] LABS: SGPT/ALT 15 U/L (13-61)
[2023-03-15 12:27] LABS: CREATININE 0.6 mg/dL (0.55-1.3); SGOT/AST 42 U/L (15-37)
[2023-03-15 12:28] LABS: TOT PROT 4.7 g/dl (6.4-8.2)
[2023-03-15 12:29] LABS: ALK PHOS 36 U/L (45-117)
[2023-03-15 12:45] LABS: CALCIUM 6.9 mg/dL (8.5-10.1)
[2023-03-15] MEDS ORDERED: MAGNESIUM SULF 50% (8.12 MEQ/2 ML-1 GM VIAL) IVPB ONE (13:21)
[2023-03-15] MEDS ORDERED: SODIUM CHLORIDE 500 ML IV STA (13:28)
[2023-03-15] MEDS: CALCIUM CARBONATE 650 MG TABLET PO SCH ×2 (13:35→21:06)
[2023-03-15] MEDS: SODIUM CHLORIDE 1 GM TABLET PO SCH ×2 (13:35→21:05)
[2023-03-15 14:53] VITALS: BMI 26.9
[2023-03-15] MEDS: SODIUM CHLORIDE 1,000 ML IV SCH (18:33)
[2023-03-15 19:50] LABS: ALBUMIN 2.2 g/dl (3.4-5.0); BLOOD UREA NITROGEN 5.5 mg/dL (7-18); CALCIUM 7.1 mg/dL (8.5-10.1)
[2023-03-15 19:53] LABS: CREATININE 0.6 mg/dL (0.55-1.3)
[2023-03-15 19:56] LABS: BILIRUBIN,TOTAL 0.4 mg/dL (0.2-1)
[2023-03-15] MEDS: HEPARIN NA (PORCINE) 5,000 UNITS/ML 1ML VIAL SQ SCH (21:04)
[2023-03-15] MEDS: ALPRAZolam 0.25 MG TABLET PO PRN (21:05)
[2023-03-15] MEDS ORDERED: ACETAMINOPHEN 325 MG TABLET (FP) PO PRN (21:34)
[2023-03-15] MEDS ORDERED: HEPARIN NA (PORCINE) 5,000 UNITS/ML 1ML VIAL SQ SCH (22:00)
[2023-03-15] MEDS ORDERED: ENOXAPARIN NA (PORCINE) 40 MG/0.4 ML DISP.SYRIN SQ SCH (22:00)
[2023-03-16] MEDS: LEVOTHYROXINE NA 100 MCG TABLET (FP) PO SCH (06:32)
[2023-03-16 07:22] LABS: BASO % 0.6 % (0-2.0); EOS % 3.1 % (0-4.5); HEMATOCRIT 25.4 % (32.4-45.2); HEMOGLOBIN 8.4 GM/dL (10.7-15.3); LYMPH % 8.7 % (8-40); MCH 25.2 pg (25.7-33.7); MCHC 33.2 g/dl (32.0-36.0); MEAN CELL VOLUME 75.8 fl (80-96); MONO % 8.5 % (3.8-10.2); NEUT % 79.1 % (42.8-82.8); PLATELET COUNT 272 10^3/uL (134-434); RBC 3.35 M/mm3 (3.60-5.2); RDW 16.4 % (11.6-15.6); WHITE BLOOD COUNT 7.9 K/mm3 (4.0-10.0)
[2023-03-16 07:23] LABS: ALBUMIN 2.1 g/dl (3.4-5.0); BLOOD UREA NITROGEN 3.9 mg/dL (7-18); CALCIUM 7.4 mg/dL (8.5-10.1); MAGNESIUM 2.4 mg/dL (1.8-2.4)
[2023-03-16 07:26] LABS: CREATININE 0.5 mg/dL (0.55-1.3); PHOSPHOROUS 2.2 mg/dL (2.5-4.9)
[2023-03-16 07:28] LABS: BILIRUBIN,TOTAL 0.5 mg/dL (0.2-1)
[2023-03-16 08:17] LABS: POTASSIUM 4.2 mmol/L (3.5-5.1)
[2023-03-16 08:57] LABS: LDL CHOLESTEROL (ONLY SJRH) 91 mg/dL (5-100)
[2023-03-16] MEDS: CEFTRIAXONE 1 GM in DEXTROSE 5%-WATER - 50 ML IVPB SCH (09:34)
[2023-03-16] MEDS: SENNOSIDES/DOCUSATE COMBO (SENNA PLUS) TABLET (UD) PO SCH ×2 (09:34→22:10)
[2023-03-16] MEDS: THIAMINE HCL 100 MG TABLET (FP) PO SCH (09:34)
[2023-03-16] MEDS: PARoxetine HCL 20 MG TABLET PO SCH (09:34)
[2023-03-16] MEDS: PANTOPRAZOLE 40 MG TABLET PO SCH ×2 (09:34→22:11)
[2023-03-16] MEDS: SODIUM CHLORIDE 1 GM TABLET PO SCH ×2 (09:35→22:10)
[2023-03-16] MEDS: FOLIC ACID 1 MG TABLET (FP) PO SCH (09:35)
[2023-03-16] MEDS: ASPIRIN 325 MG TABLET PO SCH (09:35)
[2023-03-16] MEDS: CALCIUM CARBONATE 650 MG TABLET PO SCH (09:35)
[2023-03-16] MEDS: QUEtiapine FUMARATE 50 MG TABLET PO SCH ×2 (09:35→22:10)
[2023-03-16] MEDS: HEPARIN NA (PORCINE) 5,000 UNITS/ML 1ML VIAL SQ SCH ×2 (09:35→22:11)
[2023-03-16] MEDS: ALPRAZolam 0.25 MG TABLET PO PRN (09:36)
[2023-03-16] MEDS: KETOROLAC TROMETHAMINE 30 MG/1 ML VIAL IVPUSH PRN ×2 (09:36→18:53)
[2023-03-16] MEDS ORDERED: ALBUTEROL SO4 0.083% IH SOL 2.5 MG/3 ML VIAL.NEB. NEB PRN (16:53)
[2023-03-16] MEDS ORDERED: ALPRAZolam 0.25 MG TABLET PO PRN (16:53)
[2023-03-16] MEDS ORDERED: ONDANSETRON 4 MG/2 ML VIAL IVPUSH PRN (16:53)
[2023-03-16] MEDS ORDERED: MAG HYDROX/AL HYDROX/SIMETH 30 ML UNIT-DOSE CUP PO PRN (16:53)
[2023-03-16] MEDS: ACETAMINOPHEN 325 MG TABLET (FP) PO PRN (22:10)
[2023-03-17] MEDS: LEVOTHYROXINE NA 100 MCG TABLET (FP) PO SCH (06:09)
[2023-03-17] MEDS: KETOROLAC TROMETHAMINE 30 MG/1 ML VIAL IVPUSH PRN (06:14)
[2023-03-17] MEDS: ASPIRIN 325 MG TABLET PO SCH (07:59)
[2023-03-17] MEDS: FOLIC ACID 1 MG TABLET (FP) PO SCH (09:05)
[2023-03-17] MEDS: THIAMINE HCL 100 MG TABLET (FP) PO SCH (09:05)
[2023-03-17] MEDS: PANTOPRAZOLE 40 MG TABLET PO SCH ×2 (09:05→21:37)
[2023-03-17] MEDS: SENNOSIDES/DOCUSATE COMBO (SENNA PLUS) TABLET (UD) PO SCH ×2 (09:05→21:37)
[2023-03-17] MEDS: amLODIPine BESYLATE 5 MG TABLET (FP) PO SCH (09:05)
[2023-03-17] MEDS: SODIUM CHLORIDE 1 GM TABLET PO SCH ×2 (09:05→21:37)
[2023-03-17] MEDS: PARoxetine HCL 20 MG TABLET PO SCH (09:06)
[2023-03-17] MEDS: QUEtiapine FUMARATE 50 MG TABLET PO SCH ×2 (09:06→21:37)
[2023-03-17] MEDS: HEPARIN NA (PORCINE) 5,000 UNITS/ML 1ML VIAL SQ SCH ×2 (09:06→21:38)
[2023-03-17] MEDS ORDERED: CEFTRIAXONE 1 GM in DEXTROSE 5%-WATER - 50 ML IVPB SCH (10:00)
[2023-03-18] MEDS: LEVOTHYROXINE NA 100 MCG TABLET (FP) PO SCH (06:23)
[2023-03-18] MEDS: THIAMINE HCL 100 MG TABLET (FP) PO SCH (10:27)
[2023-03-18] MEDS: QUEtiapine FUMARATE 50 MG TABLET PO SCH ×2 (10:27→21:44)
[2023-03-18] MEDS: PARoxetine HCL 20 MG TABLET PO SCH (10:27)
[2023-03-18] MEDS: HEPARIN NA (PORCINE) 5,000 UNITS/ML 1ML VIAL SQ SCH ×2 (10:27→21:44)
[2023-03-18] MEDS: PANTOPRAZOLE 40 MG TABLET PO SCH ×2 (10:27→21:44)
[2023-03-18] MEDS: ASPIRIN 325 MG TABLET PO SCH (10:27)
[2023-03-18] MEDS: FOLIC ACID 1 MG TABLET (FP) PO SCH (10:27)
[2023-03-18] MEDS: amLODIPine BESYLATE 5 MG TABLET (FP) PO SCH (10:27)
[2023-03-18] MEDS: SODIUM CHLORIDE 1 GM TABLET PO SCH ×2 (10:27→21:44)
[2023-03-18] MEDS: SENNOSIDES/DOCUSATE COMBO (SENNA PLUS) TABLET (UD) PO SCH ×2 (10:27→21:44)
[2023-03-18] MEDS: ACETAMINOPHEN 325 MG TABLET (FP) PO PRN (21:44)
[2023-03-19] MEDS: LEVOTHYROXINE NA 100 MCG TABLET (FP) PO SCH (06:04)
[2023-03-19] MEDS: ACETAMINOPHEN 325 MG TABLET (FP) PO PRN ×2 (08:48→16:03)
[2023-03-19] MEDS: ASPIRIN 325 MG TABLET PO SCH (08:50)
[2023-03-19] MEDS: amLODIPine BESYLATE 5 MG TABLET (FP) PO SCH (09:00)
[2023-03-19] MEDS: HEPARIN NA (PORCINE) 5,000 UNITS/ML 1ML VIAL SQ SCH ×2 (09:01→21:24)
[2023-03-19] MEDS: QUEtiapine FUMARATE 50 MG TABLET PO SCH ×2 (09:01→21:24)
[2023-03-19] MEDS: SODIUM CHLORIDE 1 GM TABLET PO SCH ×2 (09:01→21:23)
[2023-03-19] MEDS: FOLIC ACID 1 MG TABLET (FP) PO SCH (09:02)
[2023-03-19] MEDS: PARoxetine HCL 20 MG TABLET PO SCH (09:02)
[2023-03-19] MEDS: THIAMINE HCL 100 MG TABLET (FP) PO SCH (09:02)
[2023-03-19] MEDS: PANTOPRAZOLE 40 MG TABLET PO SCH ×2 (09:02→21:24)
[2023-03-19] MEDS: SENNOSIDES/DOCUSATE COMBO (SENNA PLUS) TABLET (UD) PO SCH ×2 (09:03→21:23)
[2023-03-19 10:00] LABS: CHLORIDE 92 mmol/L (98-107); POTASSIUM 4.1 mmol/L (3.5-5.1); SODIUM 132 mmol/L (136-145)
[2023-03-19 10:06] LABS: ANION GAP 7 MMOL/L (8-16); CO2 32 mmol/L (21-32); GLUCOSE,RANDOM 99 mg/dL (74-106)
[2023-03-19 10:09] LABS: CREATININE 0.4 mg/dL (0.55-1.3)
[2023-03-19 10:36] LABS: BLOOD UREA NITROGEN 2.7 mg/dL (7-18); CALCIUM 8.6 mg/dL (8.5-10.1)
[2023-03-19] MEDS: BUDESONIDE/FORMETEROL FUMARATE 160/4.5 mcg INHALER IH SCH ×2 (12:41→21:25)
[2023-03-19 14:41] VITALS: RESP 18
[2023-03-20] MEDS: LEVOTHYROXINE NA 100 MCG TABLET (FP) PO SCH (06:06)
[2023-03-20] MEDS: ASPIRIN 325 MG TABLET PO SCH (09:43)
[2023-03-20] MEDS: SODIUM CHLORIDE 1 GM TABLET PO SCH ×2 (09:43→21:14)
[2023-03-20] MEDS: PARoxetine HCL 20 MG TABLET PO SCH (09:43)
[2023-03-20] MEDS: PANTOPRAZOLE 40 MG TABLET PO SCH ×2 (09:43→21:15)
[2023-03-20] MEDS: FOLIC ACID 1 MG TABLET (FP) PO SCH (09:43)
[2023-03-20] MEDS: SENNOSIDES/DOCUSATE COMBO (SENNA PLUS) TABLET (UD) PO SCH ×2 (09:43→21:14)
[2023-03-20] MEDS: HEPARIN NA (PORCINE) 5,000 UNITS/ML 1ML VIAL SQ SCH ×2 (09:43→21:15)
[2023-03-20] MEDS: THIAMINE HCL 100 MG TABLET (FP) PO SCH (09:43)
[2023-03-20] MEDS: amLODIPine BESYLATE 5 MG TABLET (FP) PO SCH (09:43)
[2023-03-20] MEDS: QUEtiapine FUMARATE 50 MG TABLET PO SCH ×2 (09:43→21:14)
[2023-03-20] MEDS: BUDESONIDE/FORMETEROL FUMARATE 160/4.5 mcg INHALER IH SCH ×2 (09:44→21:13)
[2023-03-20 23:52] VITALS: BP 137/77; PULSE 73; TEMP 98
== END 2023-03-20 21:30 | DRG 956 ==
LOC: JER 11:00 → JERBED 15:45 → J4W 21:41 → JICU 03-14 21:20 → J6S 03-16 17:43
PROVIDERS: ADMIT Internal Medicine; ATTEND Internal Medicine
PROC: 30233N1 Transfusion of Nonautologous Red Blood Cells into Peripheral Vein, Percutaneous Approach (ICD-10-PCS; 2023-03-14)
PROC: 0SRR0JZ Replacement of Right Hip Joint, Femoral Surface with Synthetic Substitute, Open Approach (ICD-10-PCS; principal; 2023-03-14 14:00)
DX: S72.001A Fracture of unspecified part of neck of right femur, initial encounter for closed fracture (principal); S27.329A Contusion of lung, unspecified, initial encounter; J95.821 Acute postprocedural respiratory failure; S42.254A Nondisplaced fracture of greater tuberosity of right humerus, initial encounter for closed fracture; E87.1 Hypo-osmolality and hyponatremia; E87.20 Acidosis, unspecified; I95.9 Hypotension, unspecified; W19.XXXA Unspecified fall, initial encounter; Y93.9 Activity, unspecified; Y92.89 Other specified places as the place of occurrence of the external cause; Y99.9 Unspecified external cause status; E03.9 Hypothyroidism, unspecified; E78.5 Hyperlipidemia, unspecified; K21.9 Gastro-esophageal reflux disease without esophagitis; Y83.9 Surgical procedure, unspecified as the cause of abnormal reaction of the patient, or of later complication, without mention of misadventure at the time of the procedure; E83.42 Hypomagnesemia; I10 Essential (primary) hypertension; E83.51 Hypocalcemia
CPT/HCPCS: 0241U-QW; 36415; 36430; 36600; 70450-TC; 71045-TC-FY; 71275-TC; 72125-TC; 72170-TC-FY; 73030-TC-RT-FY; 73060-TC-RT-FY; 73502-TC-RT-FY; 73521-TC-FY; 73552-TC-RT-FY; 80048; 80053; 80307; 82465; 82803; 83605; 83690; 83718; 83721; 83735; 83880; 83930; 84100; 84439; 84443; 84478; 84484; 85025; 85027; 86850; 86900; 86901; 86922; 88305-TC; 88311-TC; 93005; 93010; 93306-TC; 94760; 97116-GP; 97162-GP; 99291; 99292; C1776; J1644; P9058; Q9967

== ENCOUNTER 2023-04-05 23:45 | Observation (INO) | payer OTHER ==
[2023-04-06] MEDS ORDERED: SODIUM CHLORIDE 0.9% 500 ML INFUS.BAG IV ONE ×2 (00:25→03:01)
[2023-04-06 01:06] LABS: HEMATOCRIT 26.6 % (32.4-45.2); HEMOGLOBIN 8.5 GM/dL (10.7-15.3); MEAN CELL VOLUME 78.2 fl (80-96); MEAN PLT VOLUME 7.1 fl (7.5-11.1); PLATELET COUNT 433 10^3/uL (134-434); RBC 3.41 M/mm3 (3.60-5.2); RDW 20.3 % (11.6-15.6); WHITE BLOOD COUNT 6.2 K/mm3 (4.0-10.0)
[2023-04-06] MEDS ORDERED: morphine CARPU-JECT 2 MG/1 ML DISP.SYRIN IVPUSH ONE (01:15)
[2023-04-06 01:23] LABS: CHLORIDE 98 mmol/L (98-107); POTASSIUM 4.8 mmol/L (3.5-5.1); SODIUM 132 mmol/L (136-145)
[2023-04-06 01:25] LABS: ALBUMIN 2.7 g/dl (3.4-5.0); ANION GAP 6 MMOL/L (8-16); BLOOD UREA NITROGEN 6.7 mg/dL (7-18); CALCIUM 9.1 mg/dL (8.5-10.1); CO2 28 mmol/L (21-32); GLUCOSE,RANDOM 97 mg/dL (74-106)
[2023-04-06 01:28] LABS: CREATININE 0.5 mg/dL (0.55-1.3); SGOT/AST 27 U/L (15-37); SGPT/ALT 17 U/L (13-61)
[2023-04-06 01:30] LABS: BILIRUBIN,TOTAL 0.3 mg/dL (0.2-1); TOT PROT 6.1 g/dl (6.4-8.2)
[2023-04-06 01:31] LABS: ALK PHOS 64 U/L (45-117)
[2023-04-06] MEDS ORDERED: MIDAZOLAM HCL 2 MG/2 ML SINGLE DOSE VIAL IVPUSH ONE ×2 (03:15→03:16)
[2023-04-06] MEDS ORDERED: MIDAZOLAM HCL 2 MG/2 ML SINGLE DOSE VIAL ONE ×2 (03:20→03:36)
[2023-04-06] MEDS ORDERED: FENTANYL CITRATE/PF 50 MCG/ML VIAL ONE ×2 (03:21→03:31)
[2023-04-06 03:23] LABS: ANISOCYTOSIS 2+; MACROCYTOSIS 2+
[2023-04-06] MEDS ORDERED: PROPOFOL 200 MG/20 ML VIAL IVPUSH ONE ×2 (04:07)
[2023-04-06] MEDS ORDERED: PROPOFOL 1,000,000 MCG/100 ML VIAL ONE (04:10)
[2023-04-06] MEDS ORDERED: ACETAMINOPHEN 1000 MG/100 ML BAG IVPB PRN (05:39)
[2023-04-06] MEDS ORDERED: DEXTROSE 5%-0.45% SALINE 1,000 ML IV SCH ×2 (05:45→11:44)
[2023-04-06 05:47] LABS: INR 1.18 (0.83-1.09); PROTHROMBIN TIME (PATIENT) 13.7 SEC (9.7-13.0)
[2023-04-06 05:50] LABS: ACTIVATED PTT 29.6 SECONDS (25.2-36.5)
[2023-04-06] MEDS ORDERED: LEVOTHYROXINE SODIUM 100 MCG 5 ML VIAL IVPUSH SCH (07:00)
[2023-04-06] MEDS ORDERED: oxyCODONE HCL 5 MG TABLET PO PRN (08:04)
[2023-04-06] MEDS ORDERED: NALOXONE HCL 0.4 MG/ML VIAL IVPUSH PRN ×2 (08:04→11:44)
[2023-04-06] MEDS ORDERED: ACETAMINOPHEN 325 MG TABLET (FP) PO PRN ×2 (08:04→11:44)
[2023-04-06] MEDS ORDERED: morphine SULFATE 4 MG/ML VIAL IVPUSH PRN (08:06)
[2023-04-06] MEDS ORDERED: MAG HYDROX/AL HYDROX/SIMETH 30 ML UNIT-DOSE CUP PO PRN ×2 (08:23→11:44)
[2023-04-06] MEDS ORDERED: ALPRAZolam 0.25 MG TABLET PO PRN (08:23)
[2023-04-06 09:21] VITALS: BMI 27.6
[2023-04-06] MEDS ORDERED: BUPIVACAINE HCL/PF 0.5% (5MG/ML) 10 ML VIAL ONE (09:56)
[2023-04-06] MEDS ORDERED: FOLIC ACID 1 MG TABLET (FP) PO SCH (10:00)
[2023-04-06] MEDS ORDERED: PANTOPRAZOLE 40 MG TABLET PO SCH (10:00)
[2023-04-06] MEDS ORDERED: PARoxetine HCL 20 MG TABLET PO SCH (10:00)
[2023-04-06] MEDS ORDERED: SENNOSIDES/DOCUSATE COMBO (SENNA PLUS) TABLET (UD) PO SCH (10:00)
[2023-04-06] MEDS ORDERED: LEVOTHYROXINE NA 88 MCG TABLET (FP) PO SCH (10:00)
[2023-04-06] MEDS ORDERED: QUEtiapine FUMARATE 50 MG TABLET PO SCH (10:00)
[2023-04-06] MEDS ORDERED: SODIUM CHLORIDE 1 GM TABLET PO SCH (10:00)
[2023-04-06] MEDS ORDERED: THIAMINE HCL 100 MG TABLET (FP) PO SCH (10:00)
[2023-04-06] MEDS ORDERED: ONDANSETRON 4 MG/2 ML VIAL IVPUSH PRN ×2 (10:07→11:44)
[2023-04-06] MEDS ORDERED: LACTATED RINGERS SOLUTION 1,000 ML IV SCH (10:15)
[2023-04-06] MEDS ORDERED: PROPOFOL 20 ML ONE ×2 (10:39→10:58)
[2023-04-06] MEDS ORDERED: SUCCINYLCHOLINE CHLORIDE 200 MG/10 ML SYRINGE ONE (10:39)
[2023-04-06] MEDS: oxyCODONE HCL 5 MG TABLET PO PRN ×3 (12:24→22:12)
[2023-04-06 12:30] VITALS: RESP 18
[2023-04-06] MEDS: ALPRAZolam 0.25 MG TABLET PO PRN (13:33)
[2023-04-06] MEDS: SENNOSIDES/DOCUSATE COMBO (SENNA PLUS) TABLET (UD) PO SCH (22:00)
[2023-04-06] MEDS: QUEtiapine FUMARATE 50 MG TABLET PO SCH (22:01)
[2023-04-06] MEDS: PANTOPRAZOLE 40 MG TABLET PO SCH (22:01)
[2023-04-06] MEDS: SODIUM CHLORIDE 1 GM TABLET PO SCH (22:02)
[2023-04-07 05:40] VITALS: BP 105/64; PULSE 80; TEMP 97.8
[2023-04-07] MEDS: oxyCODONE HCL 5 MG TABLET PO PRN ×2 (06:33→11:21)
[2023-04-07] MEDS ORDERED: LEVOTHYROXINE NA 88 MCG TABLET (FP) PO SCH (07:00)
[2023-04-07] MEDS ORDERED: LEVOTHYROXINE NA 100 MCG TABLET (FP) PO SCH (07:00)
[2023-04-07] MEDS: ALPRAZolam 0.25 MG TABLET PO PRN (08:48)
[2023-04-07 09:05] LABS: BASO % 0.9 % (0-2.0); EOS % 7.7 % (0-4.5); HEMATOCRIT 21.9 % (32.4-45.2); LYMPH % 22.8 % (8-40); MCH 25.4 pg (25.7-33.7); MEAN CELL VOLUME 79.6 fl (80-96); MEAN PLT VOLUME 7.7 fl (7.5-11.1); MONO % 9.3 % (3.8-10.2); NEUT % 59.3 % (42.8-82.8); PLATELET COUNT 383 10^3/uL (134-434); RBC 2.75 M/mm3 (3.60-5.2); RDW 19.7 % (11.6-15.6); WHITE BLOOD COUNT 5.5 K/mm3 (4.0-10.0)
[2023-04-07 09:13] LABS: CALCIUM 8.4 mg/dL (8.5-10.1)
[2023-04-07 09:14] LABS: BLOOD UREA NITROGEN 4.5 mg/dL (7-18)
[2023-04-07 09:17] LABS: CREATININE 0.4 mg/dL (0.55-1.3)
[2023-04-07] MEDS: PANTOPRAZOLE 40 MG TABLET PO SCH (09:21)
[2023-04-07] MEDS: SODIUM CHLORIDE 1 GM TABLET PO SCH (09:21)
[2023-04-07] MEDS: QUEtiapine FUMARATE 50 MG TABLET PO SCH (09:21)
[2023-04-07] MEDS: SENNOSIDES/DOCUSATE COMBO (SENNA PLUS) TABLET (UD) PO SCH (09:21)
[2023-04-07] MEDS ORDERED: THIAMINE HCL 100 MG TABLET (FP) PO SCH (10:00)
[2023-04-07] MEDS ORDERED: FOLIC ACID 1 MG TABLET (FP) PO SCH (10:00)
[2023-04-07] MEDS ORDERED: PARoxetine HCL 20 MG TABLET PO SCH (10:00)
== END 2023-04-07 11:30 | disposition short-term general hospital (02) ==
LOC: JER 23:45 → JERBED 04-06 04:07 → J8W 04-06 06:51
PROVIDERS: ADMIT Internal Medicine; ATTEND Internal Medicine
PROC: 3E033NZ Introduction of Analgesics, Hypnotics, Sedatives into Peripheral Vein, Percutaneous Approach (ICD-10-PCS; 2023-04-06)
PROC: 3E0337Z Introduction of Electrolytic and Water Balance Substance into Peripheral Vein, Percutaneous Approach (ICD-10-PCS; 2023-04-06)
PROC: 0SS9XZZ Reposition Right Hip Joint, External Approach (ICD-10-PCS; 2023-04-06)
PROC: 3E033GC Introduction of Other Therapeutic Substance into Peripheral Vein, Percutaneous Approach (ICD-10-PCS; principal; 2023-04-06 10:00)
DX: T84.020A Dislocation of internal right hip prosthesis, initial encounter (principal); E78.5 Hyperlipidemia, unspecified; I25.2 Old myocardial infarction; J44.9 Chronic obstructive pulmonary disease, unspecified; E03.9 Hypothyroidism, unspecified; F10.99 Alcohol use, unspecified with unspecified alcohol-induced disorder; R77.8 Other specified abnormalities of plasma proteins; Z88.0 Allergy status to penicillin; I10 Essential (primary) hypertension; D64.9 Anemia, unspecified; F41.9 Anxiety disorder, unspecified; Z96.641 Presence of right artificial hip joint; Y93.89 Activity, other specified; Z87.891 Personal history of nicotine dependence; W18.39XA Other fall on same level, initial encounter; Y92.008 Other place in unspecified non-institutional (private) residence as the place of occurrence of the external cause
CPT/HCPCS: 36415; 71045-TC-FY; 72170-TC-FY; 73502-TC-RT-FY; 76000-TC-FY; 80048; 80053; 80307; 84443; 85025; 85610; 85730; 86850; 86900; 86901; 87635; 93005; 93010; 94760; 96365; 96375; 96376; 99285-25; G0378